=== PATIENT | male | born 1935 | race Caucasian/White ===

== ENCOUNTER → 2016-04-28 | Outpatient (CLI) | payer MEDICARE, OTHER ==
[2016-04-28 09:02] LABS: PROTHROMBIN TIME 31.1 SEC (11.4-15.4)
== END ==
LOC: OD 07:40
PROVIDERS: ATTEND Internal Medicine
DX: Z79.01 Long term (current) use of anticoagulants (principal)
CPT/HCPCS: 36415; 85610

== ENCOUNTER 2016-05-14 11:12 | Inpatient (IN) | payer MEDICARE, OTHER ==
[2016-05-14] MEDS ORDERED: ASPIRIN 81 MG TABLET, CHEWABLE PO ONE (12:11)
[2016-05-14 12:24] LABS: PROTHROMBIN TIME 13.5 SEC (11.4-15.4)
[2016-05-14 12:40] LABS: ABSOLUTE BASOPHILS # (AUTO) 0.1 10^3/uL (0.0-0.2); ABSOLUTE EOSINOPHILS # (AUTO) 0.3 10^3/uL (0.0-0.6); ABSOLUTE LYMPHOCYTES (AUTO) 1.4 10^3/uL (0.5-4.7); ABSOLUTE MONOCYTES (AUTO) 0.6 10^3/uL (0.1-1.4); ABSOLUTE NEUT (AUTO) 6.1 10^3/uL (1.7-8.2); BASOPHILS % (AUTO) 0.9 % (0-2); EOSINOPHILS % (AUTO) 4.1 % (0-6); HEMATOCRIT 38.6 % (37.9-51.0); HGB HCT DIFFERENCE 0.4; LYMPHOCYTES % (AUTO) 16.1 % (13-45); MEAN CORPUSCULAR HEMOGLOBIN 31.5 pg (27.0-33.4); MEAN CORPUSCULAR HGB CONC 33.7 g/dL (32.0-36.0); MEAN CORPUSCULAR VOLUME 94 fl (80-97); MONOCYTES % (AUTO) 6.6 % (3-13); RED BLOOD COUNT 4.12 10^6/uL (4.35-5.55); SEGMENTED NEUTROPHILS % (AUTO) 72.3 % (42-78); WHITE BLOOD COUNT 8.4 10^3/uL (4.0-10.5)
[2016-05-14 12:45] LABS: ALANINE AMINOTRANSFERASE 83 U/L (21-72); ALBUMIN 3.6 g/dL (3.5-5.0); ALKALINE PHOSPHATASE 154 U/L (38-126); ANION GAP 9 (5-19); ASPARTATE AMINO TRANSFERASE 65 U/L (17-59); BILIRUBIN,TOTAL 0.9 mg/dL (0.2-1.3); BLOOD UREA NITROGEN 21 mg/dL (7-20); CALCIUM 9.1 mg/dL (8.4-10.2); CARBON DIOXIDE 28 mmol/L (22-30); CHLORIDE 100 mmol/L (98-107); CREATINE KINASE 30 U/L (55-170); CREATININE RESULT 0.97 mg/dL (0.52-1.25); GLUCOSE 206 mg/dL (75-110); POTASSIUM 5.1 mmol/L (3.6-5.0); SODIUM 136.6 mmol/L (137-145); TOTAL PROTEIN 6.4 g/dL (6.3-8.2)
[2016-05-14 12:59] LABS: CREATINE KINASE MB 0.59 ng/mL (<4.55)
[2016-05-14 13:02] LABS: TROPONIN I < 0.012 ng/mL
--- NOTE | 2016-05-14 13:09 | ER Document Report ---
ED General - General Chief Complaint: Chest Pain > 30 Stated Complaint: CHEST PAIN Mode of Arrival: Ambulatory Information source: Patient Notes: 81 yr old male presents with complaints of chest pain that started prior to arrival. Patient notes that he has a history of coronary artery disease has had 2 stents placed 10 years ago in the [facility] and [facility]. Over at [facility]. Patient notes symptoms worsen with exertion. Patient notes there is shortness of breath associated with the pain radiating to the jaw patient has had recent esophageal EGD TRAVEL OUTSIDE OF THE [place] IN LAST 30 DAYS: No - HPI Onset: Just prior to arrival Onset/Duration: Sudden Quality of pain: Achy Severity: Mild Pain Level: 1 Associated symptoms: Chest pain, Shortness of breath Exacerbated by: Denies Relieved by: Denies Similar symptoms previously: No Recently seen / treated by doctor: No - Related Data Allergies/Adverse Reactions: alfuzosin [Alfuzosin] Allergy (Unknown, Verified 05/14/16 12:10) procaine HCl [From Novocain] Allergy (Unknown, Verified 05/14/16 12:10) Home Medications: Current Home Medications Amiodarone HCl [Cordarone 200 mg Tablet] 200 mg PO DAILY 05/14/16 [History] Melatonin/Pyridoxine HCl (B6) [Melatonin 3 mg Tablet] 1 each PO DAILY 05/14/16 [ History] Sertraline HCl [Zoloft 50 mg Tablet] 50 mg PO DAILY 05/14/16 [History] Silodosin [Rapaflo] 8 mg PO DAILY 05/14/16 [History] Warfarin Sodium [Coumadin 5 mg Tablet] 5 mg PO DAILY 05/14/16 [History] Past Medical History - Social History Smoking Status: Never Smoker Cigarette use (# per day): No Chew tobacco use (# tins/day): No Smoking Education Provided: No Family History: Reviewed & Not Pertinent - Past Medical History Cardiac Medical History: Reports: Hx Atrial Fibrillation, Hx Coronary Artery Disease, Hx Hypercholesterolemia, Hx Hypertension Denies: Hx Heart Murmur Pulmonary Medical History: Denies: Hx Tuberculosis Neurological Medical History: Denies: Hx Seizures Endocrine Medical History: Reports: Hx Diabetes Mellitus Type 2 - Diet and exercise controlled Renal/ Medical History: Reports: Hx Kidney Stones GI Medical History: Reports: Hx Diverticulitis, Hx Gastroesophageal Reflux Disease, Hx Hiatal Hernia Musculoskeltal Medical History: Reports Hx Arthritis - all joints Traumatic Medical History: Reports: Hx Fractures - Arm Past Surgical History: Reports: Hx Appendectomy, Hx Bowel Surgery - peg tube removal, Hx Cardiac Catheterization, Hx Cardiac Surgery - 2 stents, Hx Coronary Stent - x2, Hx Orthopedic Surgery - right knee replacement - Immunizations Hx Diphtheria, Pertussis, Tetanus Vaccination: Yes Hx Pneumococcal Vaccination: 03/30/08 Review of Systems - Review of Systems Notes: REVIEW OF SYSTEMS: CONSTITUTIONAL : Denies fever, chills, or sweats. Denies recent illness. EENT: Admits to pain rating to draw. CARDIOVASCULAR: Admits to chest pain RESPIRATORY: Admits to shortness of breath GASTROINTESTINAL: Denies abdominal pain or distention. Denies nausea, vomiting , or diarrhea. Denies blood in vomitus, stools, or per rectum. Denies black, tarry stools. Denies constipation. GENITOURINARY: Denies difficulty urinating, painful urination, burning, frequency, blood in urine, or discharge. MUSCULOSKELETAL: Denies back or neck pain or stiffness. Denies joint pain or swelling. SKIN: Denies rash, lesions or sores. HEMATOLOGIC : Denies easy bruising or bleeding. LYMPHATIC: Denies swollen, enlarged glands. NEUROLOGICAL: Denies confusion or altered mental status. Denies passing out or loss of consciousness. Denies dizziness or lightheadedness. Denies headache. Denies weakness or paralysis or loss of use of either side. Denies problems with gait or speech. Denies sensory loss, numbness, or tingling. Denies seizures. PSYCHIATRIC: Denies anxiety or stress. Denies depression, suicidal ideation, or homicidal ideation. ALL OTHER SYSTEMS REVIEWED AND NEGATIVE. Dictation was performed using [email or web address] voice recognition software PHYSICAL EXAMINATION: GENERAL: Well-appearing, well-nourished and in no acute distress. HEAD: Atraumatic, normocephalic. EYES: Pupils equal round and reactive to light, extraocular movements intact, sclera anicteric, conjunctiva are normal. ENT: Nares patent, oropharynx clear without exudates. Moist mucous membranes. NECK: Normal range of motion, supple without lymphadenopathy LUNGS: Breath sounds clear to auscultation bilaterally and equal. No wheezes rales or rhonchi. HEART: Regular rate and rhythm without murmurs ABDOMEN: Soft, nontender, nondistended abdomen. No guarding, no rebound. No masses appreciated. Musculoskeletal: Normal range of motion, no pitting or edema. No cyanosis. NEUROLOGICAL: Cranial nerves grossly intact. Normal speech, normal gait. Normal sensory, motor exams PSYCH: Normal mood, normal affect. SKIN: Warm, Dry, normal turgor, no rashes or lesions noted. Physical Exam - Vital signs Vitals: Temp Resp Pulse Ox 98.0 F 18 96 05/14/16 11:33 05/14/16 11:33 05/14/16 11:33 Course - Re-evaluation Re-evalutation: 05/14/16 13:09 Dr Douglas bowles 05/14/16 14:11 Overall is an extremely well-appearing male however given his history of cardiac disease I believe it is appropriate for an ACS rule out. Patient had a second episode of chest pain while in the emergency department which resolved on its own, another repeat EKG was performed no acute changes were noted - Vital Signs Vital signs: Temp Pulse Resp BP Pulse Ox 98.0 F 20 116/66 94 05/14/16 11:33 05/14/16 13:01 05/14/16 13:01 05/14/16 13:01 - Laboratory Result Diagrams: 05/14/16 11:40 05/14/16 11:40 Laboratory results interpreted by me: 05/14/16 05/14/16 11:40 11:40 RBC 4.12 L Hgb 13.0 L RDW 15.0 H Sodium 136.6 L Potassium 5.1 H BUN 21 H Glucose 206 H AST 65 H ALT 83 H Alkaline Phosphatase 154 H Creatine Kinase 30 L - Diagnostic Test Radiology reviewed: Image reviewed, Reports reviewed - EKG Interpretation by [place] EKG shows normal: Sinus rhythm, [place], Intervals, QRS Complexes When compared to previous EKG there are: No significant change Discharge - Discharge Clinical Impression: Chest pain on exertion CAD (coronary artery disease) Qualifiers: Coronary Disease-Associated Artery/Lesion type: nikolski artery [place] vs. transplanted heart: nikolski heart Associated angina: with unstable angina Qualified Code(s): I25.110 - Atherosclerotic heart disease of nikolski coronary artery with unstable angina pectoris Diabetes Qualifiers: Diabetes mellitus type: type 2 Condition: Stable Disposition: ADMITTED INPATIENT Admitting Provider: [facility] Admitted: [facility]
[2016-05-14] MEDS ORDERED: CHOLECALCIFEROL PO SCH (14:45)
[2016-05-14] MEDS ORDERED: ENOXAPARIN SODIUM INJ 100 MG/1 ML DISP.SYRIN SUBCUT SCH (15:00)
[2016-05-14 17:31] LABS: FREE T3 4.15 pg/mL (2.77-5.27)
[2016-05-14 17:44] LABS: THYROID STIMULATING HORMONE 1.69 uIU/mL (0.47-4.68)
[2016-05-14] MEDS ORDERED: LANSOPRAZOLE PO SCH (18:00)
[2016-05-14] MEDS ORDERED: (PENDING PHARMACY ID) (Verapamil Hcl [Verapamil Er] 120 MG) PO SCH (18:00)
[2016-05-14 18:15] LABS: CREATINE KINASE MB 0.42 ng/mL (<4.55)
[2016-05-14 18:18] LABS: TROPONIN I < 0.012 ng/mL
[2016-05-14] MEDS: LANSOPRAZOLE 30 MG TAB.RAP.DR PO SCH (18:30)
[2016-05-14] MEDS: ENOXAPARIN SODIUM INJ 100 MG/1 ML DISP.SYRIN SUBCUT SCH (18:30)
[2016-05-14] MEDS: DOCUSATE SODIUM 100 MG CAPSULE PO SCH (18:36)
--- NOTE | 2016-05-14 21:43 | EKG REPORT ---
SEVERITY:- ABNORMAL ECG - SINUS RHYTHM FIRST DEGREE AV BLOCK RIGHT BUNDLE BRANCH BLOCK : Confirmed by: Vince Howell 14-May-2016 21:42:52
--- NOTE | 2016-05-14 21:45 | EKG REPORT ---
SEVERITY:- ABNORMAL ECG - SINUS RHYTHM FIRST DEGREE AV BLOCK PROBABLE LEFT ATRIAL ABNORMALITY RIGHT BUNDLE BRANCH BLOCK : Confirmed by: Vince Howell 14-May-2016 21:42:59
[2016-05-14] MEDS: VERAPAMIL HCL 120 MG TABLET.SA PO SCH (22:07)
[2016-05-14] MEDS: ATORVASTATIN CALCIUM 20 MG TABLET PO SCH (22:07)
[2016-05-15 00:17] LABS: CREATINE KINASE MB 0.49 ng/mL (<4.55)
[2016-05-15 00:21] LABS: TROPONIN I < 0.012 ng/mL
[2016-05-15 03:54] LABS: APPEARANCE,URINE CLEAR; BILIRUBIN,URINE NEGATIVE (NEGATIVE); GLUCOSE, URINE NEGATIVE (NEGATIVE); KETONES,URINE NEGATIVE (NEGATIVE); LEUKOCYTE ESTERASE,URINE NEGATIVE (NEGATIVE); NITRITE,URINE NEGATIVE (NEGATIVE); PROTEIN,URINE NEGATIVE (NEGATIVE); URINE SPECIFIC GRAVITY 1.018
[2016-05-15] MEDS: ENOXAPARIN SODIUM INJ 100 MG/1 ML DISP.SYRIN SUBCUT SCH ×2 (05:52→18:01)
[2016-05-15 06:20] LABS: ABSOLUTE BASOPHILS # (AUTO) 0.1 10^3/uL (0.0-0.2); ABSOLUTE EOSINOPHILS # (AUTO) 0.5 10^3/uL (0.0-0.6); ABSOLUTE LYMPHOCYTES (AUTO) 1.2 10^3/uL (0.5-4.7); ABSOLUTE MONOCYTES (AUTO) 0.6 10^3/uL (0.1-1.4); ABSOLUTE NEUT (AUTO) 6.5 10^3/uL (1.7-8.2); BASOPHILS % (AUTO) 0.9 % (0-2); EOSINOPHILS % (AUTO) 5.5 % (0-6); HEMATOCRIT 39.4 % (37.9-51.0); HEMOGLOBIN 13.1 g/dL (13.5-17.0); HGB HCT DIFFERENCE -0.1; LYMPHOCYTES % (AUTO) 13.7 % (13-45); MEAN CORPUSCULAR HEMOGLOBIN 31.4 pg (27.0-33.4); MEAN CORPUSCULAR HGB CONC 33.4 g/dL (32.0-36.0); MEAN CORPUSCULAR VOLUME 94 fl (80-97); MONOCYTES % (AUTO) 7.1 % (3-13); RED BLOOD COUNT 4.18 10^6/uL (4.35-5.55); RED CELL DISTRIBUTION WIDTH 14.8 % (11.5-14.0); SEGMENTED NEUTROPHILS % (AUTO) 72.8 % (42-78); WHITE BLOOD COUNT 8.9 10^3/uL (4.0-10.5)
[2016-05-15 06:44] LABS: ANION GAP 6 (5-19); BLOOD UREA NITROGEN 18 mg/dL (7-20); CALCIUM 9.2 mg/dL (8.4-10.2); CARBON DIOXIDE 31 mmol/L (22-30); CHLORIDE 101 mmol/L (98-107); CREATININE RESULT 0.92 mg/dL (0.52-1.25); GLUCOSE 104 mg/dL (75-110); POTASSIUM 5.2 mmol/L (3.6-5.0); SODIUM 138.3 mmol/L (137-145)
[2016-05-15 06:50] LABS: CREATINE KINASE MB 0.52 ng/mL (<4.55)
[2016-05-15 06:55] LABS: TROPONIN I < 0.012 ng/mL
[2016-05-15] MEDS: VERAPAMIL HCL 120 MG TABLET.SA PO SCH ×2 (09:37→21:21)
[2016-05-15] MEDS: OMEGA-3 ACID ETHYL ESTERS 1 GM CAPSULE PO SCH (09:41)
[2016-05-15] MEDS: SERTRALINE HCL 50 MG TABLET PO SCH (09:41)
[2016-05-15] MEDS: MULTIVITAMIN TABLET PO SCH (09:42)
[2016-05-15] MEDS: DOCUSATE SODIUM 100 MG CAPSULE PO SCH ×2 (09:42→18:02)
[2016-05-15] MEDS: LANSOPRAZOLE 30 MG TAB.RAP.DR PO SCH ×2 (09:42→18:02)
[2016-05-15] MEDS: ASPIRIN 81 MG TABLET, ENT COATED PO SCH (09:42)
[2016-05-15] MEDS: ALLOPURINOL 300 MG TABLET PO SCH (09:42)
[2016-05-15] MEDS ORDERED: AMIODARONE HCL 200 MG TABLET PO SCH (10:00)
[2016-05-15] MEDS ORDERED: (PENDING PHARMACY ID) (Multivits-Min/Iron/Fa/Lutein [Centrum Silver Women Tablet] 1 EACH) PO SCH (10:00)
[2016-05-15] MEDS ORDERED: ASPIRIN 81 MG TABLET, ENT COATED PO SCH (10:00)
[2016-05-15] MEDS ORDERED: WARFARIN SODIUM 5 MG TABLET PO SCH ×2 (10:00→22:00)
[2016-05-15] MEDS ORDERED: (PENDING PHARMACY ID) (Warfarin Sodium 5 MG) PO SCH (10:00)
[2016-05-15] MEDS ORDERED: (PENDING PHARMACY ID) (Melatonin/Pyridoxine Hcl (B6) [Melatonin 3 Mg Tablet] 1 EACH) PO SCH (10:00)
[2016-05-15] MEDS ORDERED: (PENDING PHARMACY ID) (Silodosin [Rapaflo] 8 MG) PO SCH (10:00)
[2016-05-15] MEDS ORDERED: (PENDING PHARMACY ID) (Fish Oil/Dha/Epa [Fish Oil 1,200 Mg Fish Oil] 1 EACH) PO SCH (10:00)
--- NOTE | 2016-05-15 12:52 | EKG REPORT ---
SEVERITY:- ABNORMAL ECG - SINUS RHYTHM RIGHT BUNDLE BRANCH BLOCK : Confirmed by: Vince Howell 15-May-2016 12:52:13
--- NOTE | 2016-05-15 14:02 | PDOC TRANSFER SUMMARY ---
General Admission Date/PCP: 05/14/16 14:31 JUANY JACOBSMARY, Resuscitation Status: Full Code - Transfer Diagnosis (1) Acute coronary syndrome Is this a current diagnosis for this admission?: Yes (2) CAD (coronary artery disease) Is this a current diagnosis for this admission?: Yes (3) Diabetes Is this a current diagnosis for this admission?: Yes (4) Paroxysmal atrial fibrillation Is this a current diagnosis for this admission?: Yes - Transfer Medications Home Medications: Allopurinol [Zyloprim 300 mg Tablet] 300 mg PO QPM 05/15/16 Aspirin [Aspirin 81 mg Chewable Tablet] 81 mg PO DAILY 05/15/16 Atorvastatin Calcium [Lipitor 20 mg Tablet] 20 mg PO QPM 05/15/16 Docusate Sodium [Colace 100 mg Capsule] 100 mg PO DAILY 05/15/16 Docusate Sodium [Colace 100 mg Capsule] 200 mg PO QPM 05/15/16 Enoxaparin Sodium [Lovenox Inj 80 mg/0.8 ml Disp.syrin] 80 mg SUBCUT Q12 Ergocalciferol (Vitamin D2) [Drisdol 50,000 unit (1.25MG) Capsule] 50,000 unit PO [id number]@1000 05/15/16 Lansoprazole [Prevacid 30 mg Odt Tablet] 30 mg PO BIDBS 05/15/16 Melatonin 3 mg PO QHS 05/15/16 Multivitamin [Tab-A-Arthur] 1 each PO DAILY 05/15/16 Nitroglycerin [Nitrostat 0.4 mg (1/150 Gr) Tabs 25/Bottle] 1 tab SL Q5MP PRN [place]-3 Fatty Acids/Fish Oil [Fish Oil 1,000 mg Capsule] 1 each PO DAILY Sertraline HCl [Zoloft 50 mg Tablet] 50 mg PO QPM 05/15/16 Silodosin [Rapaflo] 8 mg PO QPM 05/15/16 Verapamil HCl [Verapamil ER] 120 mg PO BID 05/15/16 Transfer Medications: Current Medications Allopurinol (Zyloprim 300 Mg Tablet) 300 mg PO DAILY MELBA Stop: 06/14/16 09:59 Last Admin: 05/15/16 09:42 Dose: 300 mg Aspirin (Ecotrin 81 Mg Ec Tablet) 81 mg PO DAILY MELBA Stop: 06/14/16 09:59 Last Admin: 05/15/16 09:42 Dose: 81 mg Atorvastatin Calcium (Lipitor 20 Mg Tablet) 20 mg PO QHS MELBA Stop: 06/13/16 21:59 Last Admin: 05/14/16 22:07 Dose: 20 mg Docusate Sodium (Colace 100 Mg Capsule) 100 mg PO QAM MELBA Stop: 06/14/16 07:59 Last Admin: 05/15/16 09:42 Dose: Not Given Docusate Sodium (Colace 100 Mg Capsule) 200 mg PO QPM MELBA Stop: 06/13/16 17:59 Last Admin: 05/14/16 18:36 Dose: Not Given Enoxaparin Sodium (Lovenox Inj 100 Mg/1 Ml Disp.Syrin) 85 mg SUBCUT Q12A MELBA Stop: 06/13/16 14:59 Last Admin: 05/15/16 05:52 Dose: 85 mg Lansoprazole (Prevacid 30 Mg Odt Tablet) 30 mg PO BID MELBA Stop: 06/13/16 17:59 Last Admin: 05/15/16 09:42 Dose: 30 mg Multivitamins (Tab-A-Arthur (Multiple Vitamin) Tablet) 1 tab PO DAILY MELBA Stop: 06/14/16 09:59 Last Admin: 05/15/16 09:42 Dose: 1 tab [id number] Ethyl Esters ([place] 1 Gm Capsule) 1 gm PO DAILY MELBA Stop: 06/14/16 09:59 Last Admin: 05/15/16 09:41 Dose: 1 gm Patient Own Medication (Cholecalciferol (Vitamin D3) [Vitamin D3]) 125 unit PO Q14D MELBA Stop: 06/13/16 14:44 Patient Own Medication (Melatonin/Pyridoxine Hcl (B6) [Melatonin 3 Mg Tablet]) 1 each PO DAILY MELBA Stop: 06/14/16 09:59 Patient Own Medication (Silodosin [Rapaflo]) 8 mg PO DAILY MELBA Stop: 06/14/16 09:59 Sertraline HCl (Zoloft 50 Mg Tablet) 50 mg PO DAILY MELBA Stop: 06/14/16 09:59 Last Admin: 05/15/16 09:41 Dose: 50 mg Sodium Chloride (Saline Flush 2.5 Ml Monoject Prefil Syrin) 2.5 ml IV Q8 MELBA Stop: 06/13/16 21:59 Last Admin: 05/15/16 13:54 Dose: 2.5 ml Verapamil HCl (Calan Sr 120 Mg Tablet.Sa) 120 mg PO Q12 MELBA Stop: 06/13/16 21:59 Last Admin: 05/15/16 09:37 Dose: 120 mg - Allergies Allergies/Adverse Reactions: alfuzosin [Alfuzosin] Allergy (Unknown, Verified 05/14/16 12:10) procaine HCl [From Novocain] Allergy (Unknown, Verified 05/14/16 12:10) - Diet/Activity Discharge Diet: Cardiac Hospital Course Hospital Course: The patient came into the emergency room with exertional chest pain and dyspnea. 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 The patient initial presentation symptoms were consistent with exertional dyspnea and possible acute coronary syndrome. He ruled out for myocardial infarction. His EKG did not show any acute changes. His cardiac enzymes were negative 3. His chest pain has resolved after arriving at the hospital. He is CT of the chest showed heavily calcified arteries. He did quite well over the next 24 hours. He did not have any recurrence of chest pain or shortness of breath. His EKG has not changed. Case was discussed with cardiology and because of his presenting symptoms and long history of coronary disease with paroxysmal atrial fibrillation it has been decided that the patient should undergo a cardiac catheterization for further evaluation. 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 Reynaga at [facility] with except at the patient on transfer. Physical Exam Vital Signs: Temp Pulse Resp BP Pulse Ox 97.6 F 82 12 122/67 100 05/15/16 11:31 05/15/16 11:31 05/15/16 11:31 05/15/16 11:31 05/15/16 11:31 Intake & Output 05/14/16 05/15/16 05/16/16 06:59 06:59 06:59 Intake Total 801 1200 Output Total 950 1500 Balance -149 -300 Weight 83.46 kg General appearance: PRESENT: mild distress Head exam: PRESENT: atraumatic Eye exam: PRESENT: conjunctiva pink Neck exam: ABSENT: carotid bruit, JVD Respiratory exam: PRESENT: clear to auscultation manuel Cardiovascular exam: PRESENT: RRR, +S1, +S2 Pulses: PRESENT: normal carotid pulses, +1 pedal pulses bilateral Vascular exam: PRESENT: normal capillary refill GI/Abdominal exam: PRESENT: normal bowel sounds, soft Extremities exam: PRESENT: full ROM Musculoskeletal exam: PRESENT: full ROM Neurological exam: PRESENT: alert, awake Results Laboratory Results: 05/15/16 05:49 05/15/16 05:49 05/15/16 05/15/16 05/15/16 03:30 05:49 05:49 WBC 8.9 RBC 4.18 L Hgb 13.1 L Hct 39.4 MCV 94 MCH 31.4 MCHC 33.4 RDW 14.8 H Plt Count 207 Seg Neutrophils % 72.8 Lymphocytes % 13.7 Monocytes % 7.1 Eosinophils % 5.5 Basophils % 0.9 Absolute Neutrophils 6.5 Absolute Lymphocytes 1.2 Absolute Monocytes 0.6 Absolute Eosinophils 0.5 Absolute Basophils 0.1 Sodium 138.3 Potassium 5.2 H Chloride 101 Carbon Dioxide 31 H Anion Gap 6 BUN 18 Creatinine 0.92 Est GFR ( Amer) > 60 Est GFR (Non-Af Amer) > 60 Glucose 104 Calcium 9.2 Urine Color YELLOW Urine Appearance CLEAR Urine pH 6.0 Ur Specific [place] 1.018 Urine Protein NEGATIVE Urine Glucose (UA) NEGATIVE Urine Ketones NEGATIVE Urine Blood NEGATIVE Urine Nitrite NEGATIVE Ur Leukocyte Esterase NEGATIVE Urine WBC (Auto) 2 Urine RBC (Auto) 1 05/14/16 05/14/16 05/15/16 17:30 23:45 05:49 CK-MB (CK-2) 0.42 0.49 0.52 Troponin I < 0.012 < 0.012 < 0.012 Impressions: Chest X-Ray 05/14/16 12:26 IMPRESSION: NO ACUTE RADIOGRAPHIC FINDING IN THE CHEST. Chest/Abdomen CTA 05/14/16 14:51 IMPRESSION: No CT angio evidence of acute pulmonary emboli. Heavily calcified mitral annulus and very heavily calcified coronary arteries Plan Discharge Plan: Because of patient's presenting symptoms of unstable angina and heavily calcified arteries on the CT and a long history of coronary disease the patient is being transferred to tertiary care for cardiac catheterization and possible interventions.
--- NOTE | 2016-05-15 14:53 | CONSULTATION REPORT E ---
Consultation Report NAME: ASIM CHI : 1935 AGE: 81Y DATE: 05/15/2016 309 A TO: SUSIE DAVIS M.D. FROM: JUANY MILLER M.D. Requesting Physician CHIEF COMPLAINT: His chest pain is consistent with unstable angina and dyspnea on exertion. HISTORY OF PRESENT ILLNESS: The patient states that yesterday he was feeding his chickens, at which time he started having chest pressure which was severe along with shortness of breath. He climbed the stairs and was able to go at least half way up and had to rest. The chest pressure lasted for about 20 minutes. He now has significant dyspnea on exertion and also chest pressure if he walks only a few yards. His EKG shows right bundle branch block pattern which is unchanged and his cardiac enzymes, especially troponin-I is negative x4. The patient's LFTs were also abnormal and the patient was also complaining of gait imbalance and hence, amiodarone was stopped. He also states that the last couple of days, he has been having some mild wheezing with dry cough which also could be secondary to amiodarone effect on the lung. The patient has a history of paroxysmal atrial fibrillation and was placed on amiodarone, but unfortunately due to abnormal LFTs and the patient's gait imbalance, this had to be stopped. He recently about a week or so ago, had cryotherapy for Parker esophagus and also removal of a polyp. He was off Coumadin but was placed on Lovenox after the procedure when it was deemed safe and is on Lovenox 80 mg subcutaneously every 12 hours and also Coumadin has been restarted on Thursday. His INR is subtherapeutic. There are no TIA or CVA symptoms. There is no PND or orthopnea. There is no leg edema. The patient denies any palpitations. PAST MEDICAL HISTORY: Positive for: 1. History of coronary artery disease. He had a Taxus stent in the proximal LAD and a bare metal stent in the mid-right coronary artery in 2006 for anginal symptoms. Subsequently, he had cardiac catheterization in 2010 for chest pains which showed that the stent sites were patent and there was 40% ostial right coronary artery lesion which was deemed secondary to catheter tip induced spasm. 2. History of paroxysmal atrial fibrillation and is back on Coumadin. At present, he is on Lovenox. 3. He has problems with amiodarone in the form of gait imbalance and also abnormal LFTs. 4. Mild pulmonary hypertension. 5. There is no history of congestive heart failure. There is no history of carotid disease. There is no history of asthma or COPD. There is no history of sleep apnea. He has no history of pulmonary embolism or DVT. 6. There is no history of chronic kidney disease. 7. 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 He also has esophageal polyps which have been periodically removed. The last one was about a week ago. There was a time when the patient was on PEG tube but this was a long time ago. 8. The patient has a history of noninsulin dependent diabetes mellitus type 2. 9. There is no history of thyroid disease. 10. There is no history of TIA or CVA. 11. There is no history of anxiety or depression. PAST SURGICAL HISTORY: Positive for: 1. Cholecystectomy. 2. Appendectomy. 3. Skin cancer removal. 4. Knee replacement. 5. History of cardiac catheterization and stent placement. 6. History of ureteral dilatation in the remote past. ALLERGIES: He is allergic to: 1. ZOSYN. 2. PROCAINE. 3. OXYCODONE. FAMILY HISTORY: Positive for heart attack and stroke. PERSONAL HISTORY: He quit smoking a long time ago. There is no history of EtOH abuse. CODE STATUS: The patient is a FULL CODE. His is his surrogate healthcare decision maker. MEDICATIONS: 1. Cholecalciferol 125 units p.o. every 14 days. 2. Melatonin/pyridoxine 3 mg 1 p.o. daily. 3. Rapaflo 8 mg p.o. daily. 4. Allopurinol 300 mg p.o. daily. 5. Aspirin 81 mg p.o. daily. 6. Atorvastatin 20 mg p.o. nightly. 7. Colace 100 mg p.o. every morning. 8. Docusate sodium 200 mg p.o. every night. 9. Lovenox 85 mg subcutaneously every 12 hours. 10. Prevacid 30 mg p.o. b.i.d. 11. Multivitamin 1 tablet p.o. daily. 12. Fish oil 1 g p.o. daily. 13. Zoloft 50 mg p.o. daily which has controlled his depression well. 14. Verapamil extended release 120 mg p.o. every 12 hours. 15. Warfarin 5 mg p.o. nightly. REVIEW OF SYMPTOMS: CONSTITUTIONAL: Complains of generalized fatigue, but no fever, chills, or rigors. EYES: No history of amblyopia or diplopia. No history of amaurosis fugax. HEAD: No history of head injury or headaches. EARS: The patient denies any tinnitus. There is no vertigo. He does have hearing aids and is hard of hearing still. There is no dizziness. There is no earache. There is no ear discharge. NOSE: There are no frequent colds. There is no hay fever. There are no nosebleeds. MOUTH: There is no bleeding from the gums. There is no altered taste sensation. No ulcers in the mouth. THROAT: No history of odynophagia or dysphagia. No history of recurrent sore throats. NECK: No history of enlarged neck lymph nodes and no goiter. LUNGS: At present, his pulmonary CTA shows no evidence of pulmonary emboli. There is chronic bronchiectasis and scarring in the medial right lung base. No acute infiltration, no pleural effusion, no pneumothorax. There is no pericardial effusion. Very heavily calcified mitral valve annulus and heavily calcified coronary arteries. There is a moderate-sized hiatal hernia 3.2 cm, right upper pole renal cortical cyst 2.5 cm. In the left upper pole, also there is a renal cortical cyst. The patient states that the last 2 days he had mild wheezing, but none today. There is no cough or sputum production. No history of asthma or COPD. There is no history of sleep apnea. No history of pulmonary embolism. There is no hemoptysis. No pleuritic chest pain. CARDIAC: No history of MO, but history of coronary artery disease. History of drug-eluting stent to the LAD and a bare metal stent to the RCA in 2006. In 2010, he had a cardiac catheterization which showed that the stent sites were patent. He was admitted in July 2015 with chest pain and diagnosed with unstable angina. MO was ruled out and the patient had a negative stress test. The patient has a history of paroxysmal atrial fibrillation. He is not tolerating amiodarone which was been stopped due to abnormal liver function tests and abnormal gait. There is no history of palpitations. No PND, orthopnea or leg edema or syncope. He has significant chest pressure on walking just a few yards and also complains of shortness of breath walking just a few yards. GASTROINTESTINAL: Past history of cholecystectomy. There is no history of jaundice. There is no history of decreased appetite. Note that the patient as a history of a GI bleed in March 2014, but this was due to esophageal cancer and Parker esophagus and esophageal polyps. He has had a PEG tube placed in the past and had radiation and chemotherapy and also polypectomy. The esophageal cancer has been cured. He has had several polyps removed from the esophagus. There is no history of diarrhea. There is no melenic stools at present. ENDOCRINE: History of diabetes mellitus type 2 without complications, noninsulin dependent. No history of polydipsia or polyuria. No history of heat or cold intolerance. No history of thyroid disease. RENAL: No history of chronic kidney disease. No symptoms of enlarged prostate. No history of hematuria, pyuria or dysuria. MUSCULOSKELETAL: Denies any arthritis or collagen vascular disease. VASCULAR: No history of carotid disease. No history of calf or buttock claudication. No history of DVT. CENTRAL NERVOUS SYSTEM: No history of TIA or CVA. No history of sleep apnea. No history of seizures, headaches or migraines. He has gait problems due to amiodarone which has been stopped now. PSYCHIATRIC: The patient does have some mild anxiety and depression which is well controlled with his current Zoloft. SKIN: There are no skin rashes. There is no petechiae or ecchymosis. There is no pruritus. There is no jaundice. HEMATOLOGIC: There is no history of bleeding diathesis or clotting disorders. METABOLIC: He has a history of gout present and he has a history of dyslipidemia. PHYSICAL EXAMINATION: GENERAL: On examination, the patient is well built and well nourished in no acute distress at present. VITAL SIGNS: He is afebrile with a temperature of 97.6 degrees Fahrenheit, pulse 83 beats per minute regular, blood pressure 122/67, respirations 12 per minute, O2 saturation 100% on 2L. HEENT: Head is atraumatic and normocephalic. Eyes; pupils are equal, round, regular, reactive to light and accommodation. Extraocular movements are normal. There is no conjunctival pallor. There is no scleral icterus. Ears; tympanic membranes are intact. External auditory canals are clear. Nose; there is no deviated nasal septum. There is no inflammation of the nasal mucous membranes. Mouth; mucous membranes of the mouth are moist. Tongue is moist. There are no ulcers. There is no bleeding from the gums. Throat; there is no redness of the oropharynx. There are no exudates in the throat. SKIN: There is no petechia or ecchymosis. There are no skin lesions or skin rashes. NECK: Supple. There is no JVD. Carotids are equal. There is no bruit. Trachea is central. There is no goiter. LUNGS: Clear to auscultation and percussion. CHEST: There is no chest wall tenderness. HEART: S1 and S2 are heard. There is no S3 gallop. There is no S4 gallop. There is a systolic murmur *------* present. There is no rub. ABDOMEN: Soft, nontender. There is no hepatosplenomegaly. Bowel sounds are well heard. EXTREMITIES: Femorals are well felt. There are no femoral bruits. Leg pulses are well felt. There is no pedal edema. There is no DVT or cellulitis. There is no calf tenderness. CENTRAL NERVOUS SYSTEM: The patient is conscious, awake, alert, oriented x3 with no focal deficits. PSYCHIATRIC: The patient does not appear to be anxious or depressed. His judgment and insight are intact. His affect is normal. PULMONARY FUNCTION TEST: The patient had PFTs in August 2015. There is no obstructive lung defect indicated by FEV1/FVC ratio. There is mild respiratory lung defect. Diffusion capacity is within normal limits. 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 The patient's effort was good and overall cooperative. ELECTROCARDIOGRAM: EKG shows sinus rhythm, first-degree A-V block, probable left atrial abnormality, right bundle branch block pattern. His EKG done yesterday shows the sinus rhythm, first-degree A-V block and right bundle branch block pattern. His EKG done today shows sinus rhythm, right bundle branch block pattern. IMAGING: His chest CT as mentioned earlier shows some medial lung base scarring and chronic bronchiectasis. There is very heavily calcified mitral valve annulus and heavily calcified coronary arteries. There is no pulmonary emboli visualized. The rest of the CTA is negative. The patient's chest x-ray shows lung with no opacities, masses or pneumothorax. No pleural effusion. Mediastinal and hilar structures no masses. Contour is normal. Heart size is normal. Normal vasculature. No other acute findings. LABORATORY: White count 8900, hemoglobin 13.1, hematocrit 39.4, platelet count 207,000. Sodium 138.3, potassium 5.2, chloride 101, CO2 of 31, BUN 18, creatinine 0.92, GFR greater than 60, glucose 104, calcium 9.2. As mentioned earlier, his CPK-MB and troponin-I are negative x4. TSH 1.69, free T4 of 1.62, free T3 is 4.15. His liver function tests are abnormal with a total bilirubin which is normal at 0.9, direct bilirubin of 0, AST elevated at 65, ALT elevated at 83, alkaline phosphatase 154. Total protein 6.4, albumin 3.6, calcium 9.1. ECHOCARDIOGRAM: Note that the patient had an echocardiography in July 2015. There was borderline concentric left ventricular hypertrophy, left ventricular ejection fraction is normal. Wall motion cannot be accurately committed, but no definite regional wall motion abnormalities noted. The right ventricle is mildly dilated. Right ventricular systolic function is normal. The right ventricle appears to be hypertropic. The left atrium is moderately dilated. The right atrium is mildly dilated. There was no mitral valve stenosis. There is a mild amount mitral regurgitation. There is a mild amount of aortic regurgitation. There is no aortic valve stenosis. There is trace of physiological amount of tricuspid regurgitation. There is mild pulmonary hypertension by echo. Best estimated left ventricular systolic pressure is elevated at 50 mmHg to 60 mmHg. There is no pericardial effusion. IMPRESSION: 1. Unstable angina. Would recommend continuing the patient on Lovenox and continue verapamil. Note that the patient is also on atorvastatin and aspirin. He has also been started on warfarin sodium. His pro time 13.0, INR 0.95. 2. Dyspnea on exertion question secondary to angina equivalent versus lung problem due to moderate pulmonary hypertension. 3. Coronary artery disease, history of LAD and RCA stents as mentioned earlier with no MO. 4. Hypertension, well controlled. 5. Paroxysmal atrial fibrillation, at present in sinus rhythm. 6. History of esophageal cancer. 7. Parker esophagus. 8. Diabetes mellitus type 2, noninsulin dependent without complications. 9. Moderate pulmonary hypertension with right ventricular systolic pressure of 50 to 60. 10. Mild mitral regurgitation and trace tricuspid regurgitation with right ventricular systolic pressure of 50 mmHg to 60 mmHg. 11. History of gout. 12. Abnormal LFTs. 13. Gait imbalance. 14. Dyslipidemia. RECOMMENDATIONS: 1. Continue the present treatment. In view of the patient's heavily calcified coronary arteries and the patient's symptoms of unstable angina, would recommend transfer to tertiary care center for cardiac catheterization. 2. The case was discussed with the patient and the patient's family in detail. In view of the patient's symptoms, would recommend that the patient be transferred for cardiac catheterization to make sure the stents are patent in view of the patient's unstable angina and dyspnea on exertion. The patient's dyspnea on exertion is most likely secondary to his moderate pulmonary hypertension approaching severe pulmonary hypertension. 3. The case was discussed with Dr. Miller, the attending physician on the patient. TIME SPENT: Note, 45 minutes spent on this patient, more than 50% of the time spent on direct patient care and also reviewing the patient's medications and discussions of the EKG findings and lab findings and CTA findings with the patient and the patient's family. Also, I have spoken to the [facility] cephalometric tracer, Dr. Be Reynaga for at least 10 minutes explaining the patient's clinical scenario. As mentioned earlier, we will stop the patient's amiodarone and repeat the liver function tests later on. DICTATING PHYSICIAN: SUSIE DAVIS M.D. [id number] PHY#: [id number] ID: [id number] JOB#: [id number] ACCT: [id number] cc:SUSIE DAVIS M.D. >
[2016-05-15] MEDS: ATORVASTATIN CALCIUM 20 MG TABLET PO SCH (21:21)
[2016-05-16] MEDS: ENOXAPARIN SODIUM INJ 100 MG/1 ML DISP.SYRIN SUBCUT SCH ×2 (05:20→17:12)
[2016-05-16 07:02] LABS: HEMATOCRIT 38.3 % (37.9-51.0); HEMOGLOBIN 12.8 g/dL (13.5-17.0); HGB HCT DIFFERENCE 0.1; MEAN CORPUSCULAR HEMOGLOBIN 31.4 pg (27.0-33.4); MEAN CORPUSCULAR HGB CONC 33.4 g/dL (32.0-36.0); MEAN CORPUSCULAR VOLUME 94 fl (80-97); RED BLOOD COUNT 4.08 10^6/uL (4.35-5.55); RED CELL DISTRIBUTION WIDTH 14.9 % (11.5-14.0); WHITE BLOOD COUNT 8.1 10^3/uL (4.0-10.5)
[2016-05-16 07:03] LABS: PROTHROMBIN TIME 13.5 SEC (11.4-15.4)
[2016-05-16] MEDS: DOCUSATE SODIUM 100 MG CAPSULE PO SCH ×2 (07:27→17:13)
[2016-05-16 08:18] LABS: APPEARANCE,URINE CLEAR; BILIRUBIN,URINE NEGATIVE (NEGATIVE); GLUCOSE, URINE NEGATIVE (NEGATIVE); KETONES,URINE NEGATIVE (NEGATIVE); LEUKOCYTE ESTERASE,URINE NEGATIVE (NEGATIVE); NITRITE,URINE NEGATIVE (NEGATIVE); PROTEIN,URINE NEGATIVE (NEGATIVE)
--- NOTE | 2016-05-16 08:44 | PDOC PROGRESS REPORT ---
Subjective Progress Note for:: 05/16/16 Subjective:: The patient states to feel the same. He is still awaiting bed for transfer for cardiac catheterization. He did have some chest discomfort with dyspnea after walking the holes at the hospital yesterday which resolved with rest. Physical Exam Vital Signs: Temp Pulse Resp BP Pulse Ox 98.0 F 70 20 140/73 H 100 05/16/16 04:06 05/16/16 06:38 05/16/16 04:06 05/16/16 04:06 05/16/16 04:06 Intake & Output 05/15/16 05/16/16 05/17/16 06:59 06:59 06:59 Intake Total 801 2082 Output Total 950 2000 Balance -149 82 Weight 83.46 kg 81.6 kg General appearance: PRESENT: mild distress Head exam: PRESENT: atraumatic Eye exam: PRESENT: conjunctiva pink Neck exam: ABSENT: carotid bruit, JVD Respiratory exam: PRESENT: clear to auscultation manuel Cardiovascular exam: PRESENT: +S1, +S2 Pulses: PRESENT: +1 pedal pulses bilateral Vascular exam: PRESENT: normal capillary refill GI/Abdominal exam: PRESENT: normal bowel sounds, soft Extremities exam: PRESENT: full ROM Musculoskeletal exam: PRESENT: ambulatory Neurological exam: PRESENT: alert Results Laboratory Results: 05/16/16 06:14 05/15/16 05:49 05/16/16 05/16/16 06:14 07:35 WBC 8.1 RBC 4.08 L Hgb 12.8 L Hct 38.3 MCV 94 MCH 31.4 MCHC 33.4 RDW 14.9 H Plt Count 225 Urine Color YELLOW Urine Appearance CLEAR Urine pH 7.0 Ur Specific [place] 1.010 Urine Protein NEGATIVE Urine Glucose (UA) NEGATIVE Urine Ketones NEGATIVE Urine Blood NEGATIVE Urine Nitrite NEGATIVE Ur Leukocyte Esterase NEGATIVE Urine WBC (Auto) 4 Urine RBC (Auto) 2 05/14/16 05/14/16 05/15/16 17:30 23:45 05:49 CK-MB (CK-2) 0.42 0.49 0.52 Troponin I < 0.012 < 0.012 < 0.012 Impressions: Chest X-Ray 05/14/16 12:26 IMPRESSION: NO ACUTE RADIOGRAPHIC FINDING IN THE CHEST. Chest/Abdomen CTA 05/14/16 14:51 IMPRESSION: No CT angio evidence of acute pulmonary emboli. Heavily calcified mitral annulus and very heavily calcified coronary arteries Assessment & Plan - Diagnosis (1) Acute coronary syndrome Is this a current diagnosis for this admission?: YesPlan: Unstable angina. Awaiting transfer for cardiac catheterization and possible PTCA (2) CAD (coronary artery disease) Qualifiers: Coronary Disease-Associated Artery/Lesion type: craig artery [place] vs. transplanted heart: craig heart Associated angina: with unstable angina Qualified Code(s): I25.110 - Atherosclerotic heart disease of craig coronary artery with unstable angina pectoris Is this a current diagnosis for this admission?: Yes (3) Diabetes Qualifiers: Diabetes mellitus type: type 2 Is this a current diagnosis for this admission?: Yes (4) Paroxysmal atrial fibrillation Is this a current diagnosis for this admission?: Yes
[2016-05-16] MEDS: ALLOPURINOL 300 MG TABLET PO SCH (09:28)
[2016-05-16] MEDS: LANSOPRAZOLE 30 MG TAB.RAP.DR PO SCH ×2 (09:28→17:12)
[2016-05-16] MEDS: OMEGA-3 ACID ETHYL ESTERS 1 GM CAPSULE PO SCH (09:29)
[2016-05-16] MEDS: SERTRALINE HCL 50 MG TABLET PO SCH (09:29)
[2016-05-16] MEDS: VERAPAMIL HCL 120 MG TABLET.SA PO SCH (09:30)
[2016-05-16] MEDS: MULTIVITAMIN TABLET PO SCH (09:30)
[2016-05-16] MEDS: ASPIRIN 81 MG TABLET, ENT COATED PO SCH (09:31)
[2016-05-16 10:38] LABS: ALBUMIN 3.6 g/dL (3.5-5.0); BILIRUBIN,TOTAL 0.9 mg/dL (0.2-1.3); TOTAL PROTEIN 6.2 g/dL (6.3-8.2)
[2016-05-16 12:38] VITALS: BP 129/71
--- NOTE | 2016-05-16 12:41 | EKG REPORT ---
SEVERITY:- ABNORMAL ECG - SINUS RHYTHM RIGHT BUNDLE BRANCH BLOCK : Confirmed by: Vince Howell 16-May-2016 12:40:23
--- NOTE | 2016-05-16 19:33 | PROGRESS NOTE E ---
Progress Note NAME: ASIM CHI : 1935 AGE: 81Y DATE: 05/16/2016 ROOM: 309 SUBJECTIVE: Note that the patient is still waiting for a bed. The patient states that yesterday he walked around the unit and started having chest pressure and shortness of breath. It lasted for about 10 minutes and was relieved with rest. No further chest pain or discomfort. There is no palpitation. There is no PND or orthopnea. There is no wheezing or cough. There is no arrhythmia seen on the monitor. OBJECTIVE: GENERAL: On examination, the patient is well built and well nourished, at present in no acute distress, is sitting up in the chair. VITAL SIGNS: He is afebrile with a temperature of 97.6 degrees Fahrenheit. Pulse is 78 beats per minute. Blood pressure is 129/71. Respirations are 18 per minute. O2 saturations are 99% on 1.5 liters nasal cannula. HEAD: Atraumatic/normocephalic. EYES: Pupils are equal, round, regular, reactive to light and accommodation. Extraocular movements are normal. There is no conjunctival pallor. There is no scleral icterus. EARS, NOSE, AND THROAT: Negative except the patient is hard of hearing. NECK: Supple. There is no JVD. Carotids are equal. There is no bruit. There is no goiter. There is no lymphadenopathy. Trachea is central. LUNGS: Clear to auscultation and percussion. HEART: S1, S2 is heard. There is no S3 gallop. There is no S4 gallop. There is a systolic murmur in the left sternal border and the apex. There is no rub. ABDOMEN: Soft, nontender. There is no hepatosplenomegaly. Bowel sounds are well heard. There are no tender areas or masses. EXTREMITIES: Femorals are well felt. There are no femur bruits. Leg pulses are well felt. There is no pedal edema. There is no DVT or cellulitis. There is no clubbing or cyanosis. There is no calf tenderness. CENTRAL NERVOUS SYSTEM: The patient is conscious, awake, alert, oriented x3 with no focal deficit. PSYCHIATRIC: The patient does not appear to be anxious or depressed. His judgement and insight are intact. His affect is normal. DIAGNOSTIC DATA: The patient's EKG shows sinus rhythm with a right bundle branch block pattern and no acute changes. The patient's white count is 8,100, hemoglobin is 12.8, hematocrit is 38.2, platelet count is 225,000. The patient's ProTime is 13.5, INR is 1.00. The patient's liver function tests show that the AST has come down to 41, the ALT has gone up to 73, alkaline phosphatase is 137, the total protein is 6.2, albumin is 3.6. IMPRESSION: 1. UNSTABLE ANGINA WITH CHEST PRESSURE AND SHORTNESS OF BREATH WITH EXERTION. THE PATIENT IS AWAITING A BED FOR [facility]. 2. DYSPNEA ON EXERTION VERSUS SECONDARY TO *------* VERSUS LUNG INVOLVEMENT DUE TO MODERATE PULMONARY HYPERTENSION. 3. CORONARY ARTERY DISEASE WITH HISTORY OF LAD AND OSTIAL STENTS WITH NO AR. 4. HYPERTENSION, WELL CONTROLLED. 5. PAROXYSMAL ATRIAL FIBRILLATION, AT PRESENT IN SINUS RHYTHM. 6. HISTORY OF ESOPHAGEAL CANCER AND HISTORY OF CHAN'S ESOPHAGUS. 7. DIABETES MELLITUS TYPE 2, NON-INSULIN DEPENDENT, WITHOUT COMPLICATIONS. 8. MODERATE PULMONARY HYPERTENSION WITH RIGHT VENTRICULAR SYSTOLIC PRESSURE OF 50 TO 60. 9. MILD MITRAL REGURGITATION WITH TRACE TRICUSPID REGURGITATION. 10. HISTORY OF GOUT. 11. ABNORMAL LFTS. 12. DYSLIPIDEMIA. RECOMMENDATIONS: Note that the patient is on atorvastatin, will discontinue this. Note that the patient's amiodarone has already been discontinued. Gait and balance much improved after stopping the amiodarone. Continue the patient on Lovenox at full dose for patient's weight. Continue the patient's verapamil. Stop the patient's amiodarone which has been done, will also stop her atorvastatin. Note that the patient is on aspirin 81 mg p.o. daily. Will continue on lansoprazole. Will continue with Zoloft. Note that the patient is awaiting a bed from [facility], most likely will get a bed today. Will sign off the case. Note 30 minutes spent on this patient with more than 50% of the time spent on direct patient care, reviewing the patient's medications and adjusting the patient's medications and discussions with the attending physician taking care of the patient. I will follow the patient as an outpatient. The patient is being transferred for cardiac catheterization. DICTATING PHYSICIAN: SUSIE DAVIS M.D. [id number] PHY#: [id number] ID: [id number] JOB#: [id number] ACCT: [id number] cc:SUSIE DAVIS M.D. >
== END 2016-05-16 19:47 | disposition short-term general hospital (02) | DRG 303 ==
LOC: ER 11:12 → INTOOBSV 14:31 → EH 14:31 → UNDOADMIN 14:46 → EH 14:46 → 3N 18:00 → OBSVTOIN 05-16 10:48
PROVIDERS: ADMIT Internal Medicine; ATTEND Internal Medicine
DX: I25.110 Atherosclerotic heart disease of native coronary artery with unstable angina pectoris (principal); M13.89 Other specified arthritis, multiple sites; Z96.651 Presence of right artificial knee joint; I45.10 Unspecified right bundle-branch block; I48.0 Paroxysmal atrial fibrillation; K44.9 Diaphragmatic hernia without obstruction or gangrene; N28.1 Cyst of kidney, acquired; E11.9 Type 2 diabetes mellitus without complications; F41.9 Anxiety disorder, unspecified; F32.9 Major depressive disorder, single episode, unspecified; J47.9 Bronchiectasis, uncomplicated; I27.2 Other secondary pulmonary hypertension; Z79.02 Long term (current) use of antithrombotics/antiplatelets; Z85.01 Personal history of malignant neoplasm of esophagus; Z88.6 Allergy status to analgesic agent; Z87.891 Personal history of nicotine dependence; Z95.5 Presence of coronary angioplasty implant and graft; Z79.899 Other long term (current) drug therapy; Z79.82 Long term (current) use of aspirin
CPT/HCPCS: 36415; 71010; 71275; 80048; 80053; 80076; 81001; 82550; 82553; 82962; 84439; 84443; 84481; 84484; 85025; 85027; 85610; 85652; 93005; 93010; 99285; G0378; J1650; J3490

== ENCOUNTER → 2016-05-26 | Outpatient (CLI) | payer MEDICARE, OTHER ==
[2016-05-26 08:22] LABS: PROTHROMBIN TIME 18.8 SEC (11.4-15.4)
[2016-05-26 08:27] LABS: ALANINE AMINOTRANSFERASE 51 U/L (21-72); ALKALINE PHOSPHATASE 147 U/L (38-126); ANION GAP 12 (5-19); ASPARTATE AMINO TRANSFERASE 30 U/L (17-59); BILIRUBIN,TOTAL 0.7 mg/dL (0.2-1.3); BLOOD UREA NITROGEN 23 mg/dL (7-20); CALCIUM 9.6 mg/dL (8.4-10.2); CARBON DIOXIDE 25 mmol/L (22-30); CHLORIDE 100 mmol/L (98-107); CHOLESTEROL 166.94 mg/dL (0-200); CREATININE RESULT 0.97 mg/dL (0.52-1.25); Direct HDL 37 mg/dL (>40); GLUCOSE 117 mg/dL (75-110); POTASSIUM 5.5 mmol/L (3.6-5.0); SODIUM 136.6 mmol/L (137-145); TOTAL PROTEIN 6.5 g/dL (6.3-8.2); TRIGLYCERIDES 95 mg/dL (<150)
[2016-05-26 08:38] LABS: DIRECT LDL 108 mg/dL (<100)
== END ==
LOC: OD 07:26
PROVIDERS: ATTEND Internal Medicine
DX: I25.118 Atherosclerotic heart disease of native coronary artery with other forms of angina pectoris (principal); I10 Essential (primary) hypertension; E78.4 Other hyperlipidemia; I48.0 Paroxysmal atrial fibrillation; Z79.01 Long term (current) use of anticoagulants; Z79.899 Other long term (current) drug therapy; I34.0 Nonrheumatic mitral (valve) insufficiency; I35.1 Nonrheumatic aortic (valve) insufficiency; I36.1 Nonrheumatic tricuspid (valve) insufficiency; K21.9 Gastro-esophageal reflux disease without esophagitis; R01.1 Cardiac murmur, unspecified; Z95.5 Presence of coronary angioplasty implant and graft; E11.9 Type 2 diabetes mellitus without complications
CPT/HCPCS: 36415; 80053; 80061; 85610

== ENCOUNTER 2016-06-02 17:39 | Observation (INO) | payer MEDICARE, OTHER ==
[2016-06-02] MEDS ORDERED: NORMAL SALINE 1000 ML 1,000 ML IV ONE (18:27)
--- NOTE | 2016-06-02 18:36 | ER Document Report ---
ED Dizziness/Weakness - General Stated Complaint: PHYSICIAN REFERRED FOR IV FLUIDS Information source: Patient Notes: 81-year-old male sent over by the associate software engineer Dr. Velazquez who spoke to me personally about the patient. Patient in summary is an 81-year-old male with past medical history as recorded including 2 stents who supposedly was evaluated at [facility] around 2 weeks ago and had a cardiac catheterization that showed around 50% stenosis. No intervention was performed. Patient was started on metoprolol and isosorbide mononitrate. Patient went to see his associate software engineer here locally as he is being set up for cardiac rehabilitation. He was supposed to have a stress test performed at the associate software engineer's office. Supposedly when he stood up on the treadmill his blood pressure went to 70/30 systolic without activity. Patient did feel lightheaded. Patient denies any and all chest pain, shortness of breath, leg swelling, calf pain, headache, neck pain, or fevers. The associate software engineer's believe the patient is dehydrated and is asked me to order a cardiac panel, liver panel, thyroid function panel, EKG, troponin, and start the patient on normal saline at 100 mL per hour. He is asked that I do not call the primary care provider and admit the patient directly to his service. TRAVEL OUTSIDE OF THE [place] IN LAST 30 DAYS: No - HPI Patient complains to provider of: Other - See above Onset: Other - See above Onset/Duration: Gradual Quality of pain: No pain Severity: Mild Pain Level: Denies Associated symptoms: Other - See above - Related Data Allergies/Adverse Reactions: alfuzosin [Alfuzosin] Allergy (Unknown, Verified 05/14/16 12:10) procaine HCl [From Novocain] Allergy (Unknown, Verified 05/14/16 12:10) Past Medical History - General Information source: Patient, Relative - Social History Smoking Status: Unknown if Ever Smoked Cigarette use (# per day): No Chew tobacco use (# tins/day): No Smoking Education Provided: No Frequency of alcohol use: None Family History: Reviewed & Not Pertinent - Past Medical History Cardiac Medical History: Reports: Hx Atrial Fibrillation, Hx Coronary Artery Disease, Hx Hypercholesterolemia, Hx Hypertension Denies: Hx Heart Murmur Pulmonary Medical History: Denies: Hx Tuberculosis Neurological Medical History: Denies: Hx Seizures Endocrine Medical History: Reports: Hx Diabetes Mellitus Type 2 - Diet and exercise controlled Renal/ Medical History: Reports: Hx Kidney Stones GI Medical History: Reports: Hx Diverticulitis, Hx Gastroesophageal Reflux Disease, Hx Hiatal Hernia Musculoskeltal Medical History: Reports Hx Arthritis - all joints Psychiatric Medical History: Denies: Hx Depression Traumatic Medical History: Reports: Hx Fractures - Arm Past Surgical History: Reports: Hx Appendectomy, Hx Bowel Surgery - peg tube removal, Hx Cardiac Catheterization, Hx Cardiac Surgery - 2 stents, Hx Coronary Stent - x2, Hx Orthopedic Surgery - right knee replacement - Immunizations Hx Diphtheria, Pertussis, Tetanus Vaccination: Yes Hx Pneumococcal Vaccination: 12/28/16 Review of Systems - Review of Systems Constitutional: denies: Fever EENT: denies: Eye discharge, Nose discharge Cardiovascular: denies: Chest pain, Palpitations, Heart racing Respiratory: denies: Cough, Short of breath Gastrointestinal: denies: Vomiting Genitourinary: denies: Dysuria Musculoskeletal: denies: Leg swelling Skin: Other - no hives. denies: Rash Neurological/Psychological: Other - no slurred speech -: Yes All other systems reviewed and negative Physical Exam - Vital signs Vitals: Resp Pulse Ox 19 92 06/02/16 18:39 06/02/16 18:39 Notes: Reviewed vital signs and nursing note as charted by RN. CONSTITUTIONAL: Alert and oriented and responds appropriately to questions. Well -appearing; well-nourished HEAD: Normocephalic; atraumatic EYES: PERRL NECK: Supple without meningismus; no carotid bruits; non-tender; no cervical lymphadenopathy, no masses CARD: Regular rate and rhythm; no murmurs, no clicks, no rubs, no gallops; symmetric distal pulses RESP: Normal chest excursion without splinting or tachypnea; breath sounds clear and equal bilaterally; no wheezes, no rhonchi, no rales ABD/GI: Normal bowel sounds; non-distended; soft, non-tender BACK: The back appears normal and is non-tender to palpation, there is no CVA tenderness EXT: Normal ROM in all joints; non-tender to palpation; no cyanosis, no effusions, no edema SKIN: Normal color for age and race; warm; dry; good turgor; capillary refill < 2 seconds; no acute lesions noted NEURO: CN II through XII are intact and 5 out of 5 bilateral upper and lower extremity strength with sensation intact to light touch. PSYCH: The patient's mood and manner are appropriate. Grooming and personal hygiene are appropriate. Course - Re-evaluation Re-evalutation: EKG shows a heart of 78, normal sinus rhythm, minimal left axis deviation, right bundle branch block. 06/02/16 18:37 Given the history and physical examination the laboratory orders as requested by the associate software engineer have been placed. Patient denies any and all chest pain. Blood pressure currently here is 114/67. I'm concerned that possibly the patient has had an episode of low blood pressure secondary to the recently started metoprolol and isosorbide mononitrate. I have relayed this to the associate software engineer. 06/02/16 19:49 Chemistry as recorded. Potassium is slightly elevated. Fairly normal creatinine. Fluid is infusing. No peak T waves. No widening of the QRS. Chest x-ray shows mildly enlarged heart, normal mediastinum, no fractures, normal lung macdonald, no pneumothorax. - Vital Signs Vital signs: Temp Pulse Resp BP Pulse Ox 18 129/70 H 92 06/02/16 19:12 06/02/16 18:59 06/02/16 19:12 - Laboratory Result Diagrams: 06/02/16 18:58 06/02/16 18:58 Laboratory results interpreted by me: 06/02/16 06/02/16 06/02/16 18:58 18:58 18:58 RBC 3.96 L Hgb 12.7 L Hct 37.2 L RDW 15.1 H PT 25.0 H APTT 44.3 H Potassium 5.7 H BUN 29 H Glucose 161 H Alkaline Phosphatase 160 H Discharge - Discharge Clinical Impression: Low blood pressure Qualifiers: Hypotension type: postprocedural hypotension Qualified Code(s): I95.81 - Postprocedural hypotension Condition: Fair Disposition: ADMITTED OBSERVATION Admitting Provider: Caroline Unit Admitted: Telemetry
[2016-06-02 19:18] LABS: ABSOLUTE BASOPHILS # (AUTO) 0.1 10^3/uL (0.0-0.2); ABSOLUTE EOSINOPHILS # (AUTO) 0.3 10^3/uL (0.0-0.6); ABSOLUTE LYMPHOCYTES (AUTO) 1.6 10^3/uL (0.5-4.7); ABSOLUTE MONOCYTES (AUTO) 0.6 10^3/uL (0.1-1.4); ABSOLUTE NEUT (AUTO) 6.4 10^3/uL (1.7-8.2); BASOPHILS % (AUTO) 1.3 % (0-2); EOSINOPHILS % (AUTO) 3.6 % (0-6); HEMATOCRIT 37.2 % (37.9-51.0); HEMOGLOBIN 12.7 g/dL (13.5-17.0); HGB HCT DIFFERENCE 0.9; LYMPHOCYTES % (AUTO) 17.5 % (13-45); MEAN CORPUSCULAR HGB CONC 34.1 g/dL (32.0-36.0); MEAN CORPUSCULAR VOLUME 94 fl (80-97); MONOCYTES % (AUTO) 6.7 % (3-13); RED BLOOD COUNT 3.96 10^6/uL (4.35-5.55); RED CELL DISTRIBUTION WIDTH 15.1 % (11.5-14.0); SEGMENTED NEUTROPHILS % (AUTO) 70.9 % (42-78)
[2016-06-02 19:19] LABS: PARTIAL THROMBOPLASTIN TIME 44.3 SEC (23.5-35.8)
[2016-06-02 19:38] LABS: ALANINE AMINOTRANSFERASE 41 U/L (21-72); ALBUMIN 3.9 g/dL (3.5-5.0); ALKALINE PHOSPHATASE 160 U/L (38-126); ANION GAP 10 (5-19); ASPARTATE AMINO TRANSFERASE 32 U/L (17-59); BILIRUBIN,TOTAL 0.7 mg/dL (0.2-1.3); BLOOD UREA NITROGEN 29 mg/dL (7-20); CALCIUM 9.4 mg/dL (8.4-10.2); CARBON DIOXIDE 27 mmol/L (22-30); CHLORIDE 100 mmol/L (98-107); CREATININE RESULT 1.12 mg/dL (0.52-1.25); GLUCOSE 161 mg/dL (75-110); POTASSIUM 5.7 mmol/L (3.6-5.0); SODIUM 137.1 mmol/L (137-145); TOTAL PROTEIN 6.4 g/dL (6.3-8.2)
--- NOTE | 2016-06-02 20:50 | EKG REPORT ---
SEVERITY:- ABNORMAL ECG - SINUS RHYTHM RIGHT BUNDLE BRANCH BLOCK : Confirmed by: Vince Howell 02-Jun-2016 20:49:42
[2016-06-02] MEDS ORDERED: WARFARIN SODIUM 5 MG TABLET PO ONE (22:00)
[2016-06-03 07:13] LABS: PROTHROMBIN TIME 24.4 SEC (11.4-15.4)
[2016-06-03 07:27] LABS: ANION GAP 11 (5-19); BLOOD UREA NITROGEN 22 mg/dL (7-20); CARBON DIOXIDE 26 mmol/L (22-30); CHLORIDE 103 mmol/L (98-107); CREATININE RESULT 0.82 mg/dL (0.52-1.25); GLUCOSE 102 mg/dL (75-110); POTASSIUM 5.2 mmol/L (3.6-5.0); SODIUM 139.6 mmol/L (137-145)
[2016-06-03] MEDS ORDERED: POLYETHYLENE GLYCOL 3350 POWDER 17 GM/1 PACKET PO PRN (09:06)
[2016-06-03] MEDS ORDERED: SODIUM POLYSTYRENE SULFONATE 15 GM/60 ML PO ONE (09:12)
[2016-06-03] MEDS ORDERED: ACETAMINOPHEN 325 MG TABLET PO PRN (09:15)
[2016-06-03] MEDS ORDERED: ONDANSETRON HCL INJ/PF 4 MG/2 ML SDV IV PRN (09:15)
[2016-06-03] MEDS ORDERED: NORMAL SALINE 1000 ML 1,000 ML IV PRN (09:15)
--- NOTE | 2016-06-03 09:29 | PDOC H&P ---
History of Present Illness Admission Date/PCP: 06/02/16 19:48 JUANY MILLER, Patient complains of: Hypotension History of Present Illness: ASIM CHI is a 81 year old male, with coronary artery disease, seen in [facility] where he underwent cardiac catheterization. Patient had prior stent placed and reportedly the stents were doing well. She has some blockage of about 50% to 60% on an artery and being treated medically. He did not have any chest pain since then. His cholesterol medication and amiodarone was discontinued. He was placed on Imdur and metoprolol. Since then the patient feels generally fatigued. Patient was scheduled to have a stress test with his grocery sacker where he was noted to be hypotensive and was sent to the emergency room for intravenous fluid and observation. Patient denies any chest pain at all, nor any shortness of breath or diaphoresis. He felt nauseated however when he was lightheaded yesterday. Past Medical History Cardiac Medical History: Reports: Atrial Fibrillation, Coronary Artery Disease, Hyperlipidema, Hypertension Denies: Heart Murmur Pulmonary Medical History: Denies: Tuberculosis Neurological Medical History: Denies: Seizures Endocrine Medical History: Reports: Diabetes Mellitus Type 2 - Diet and exercise controlled Renal/ Medical History: GI Medical History: Reports: Diverticulitis, Gastroesophageal Reflux Disease, Hiatal Hernia Musculoskeltal Medical History: Reports: Arthritis - all joints Psychiatric Medical History: Denies: Depression Hematology: Reports: Anemia Past Surgical History Past Surgical History: Reports: Appendectomy, Cardiac Catheterization, Coronary Stent - x2, Orthopedic Surgery - right knee replacement Social History Information Source: Patient Smoking Status: Unknown if Ever Smoked Frequency of Alcohol Use: None Hx Recreational Drug Use: No Drugs: None Hx Prescription Drug Abuse: No - Advance Directive Resuscitation Status: Full Code Family History Family History: CAD, Hyperlipidemia, Hypertension Parental Family History Reviewed: Yes Children Family History Reviewed: Yes Sibling(s) Family History Reviewed.: Yes Medication/Allergy Home Medications: Allopurinol [Zyloprim 300 mg Tablet] 300 mg PO QPM 05/15/16 Docusate Sodium [Colace 100 mg Capsule] 100 mg PO TID 05/15/16 Ergocalciferol (Vitamin D2) [Drisdol 50,000 unit (1.25MG) Capsule] 50,000 unit PO B1FIYPX@1000 05/15/16 Lansoprazole [Prevacid 30 mg Odt Tablet] 30 mg PO BIDBS 05/15/16 Melatonin 3 mg PO QHS 05/15/16 Multivitamin [Tab-A-Arthur] 1 each PO DAILY 05/15/16 Nitroglycerin [Nitrostat 0.4 mg (1/150 Gr) Tabs 25/Bottle] 1 tab SL Q5MP PRN Sertraline HCl [Zoloft 50 mg Tablet] 50 mg PO QPM 05/15/16 Silodosin [Rapaflo] 8 mg PO QPM 05/15/16 Verapamil HCl [Verapamil ER] 120 mg PO Q12 05/15/16 Aspirin [Aspirin EC] 81 mg PO DAILY 06/02/16 Fish Oil/Dha/Epa [Fish Oil 1,200 mg Fish Oil] 1,200 mg PO DAILY 06/02/16 Isosorbide Mononitrate [Imdur 60 mg Tablet.er] 60 mg PO DAILY 06/02/16 Metoprolol Tartrate [Lopressor 25 mg Tablet] 25 mg PO Q12 06/02/16 Polyethylene Glycol 3350 [Miralax Powder 17 gm/Packet] 17 gm PO HSP PRN Warfarin Sodium [Coumadin 2.5 mg Tablet] 2.5 mg PO AVILEZ@1000 06/02/16 Warfarin Sodium [Coumadin 5 mg Tablet] 5 mg PO MOTUWETHFRSA 06/02/16 Allergies/Adverse Reactions: alfuzosin [Alfuzosin] Allergy (Unknown, Verified 05/14/16 12:10) procaine HCl [From Novocain] Allergy (Unknown, Verified 05/14/16 12:10) Review of Systems Constitutional: PRESENT: weakness - Generalized. ABSENT: chills, fever(s), headache(s), weight gain, weight loss Eyes: ABSENT: visual disturbances Ears: ABSENT: hearing changes Nose, Mouth, and Throat: ABSENT: mouth pain, sore throat Cardiovascular: ABSENT: chest pain, dyspnea on exertion, edema, orthropnea, palpitations Respiratory: ABSENT: cough, hemoptysis Gastrointestinal: PRESENT: constipation. ABSENT: abdominal pain, diarrhea, hematemesis, hematochezia, melena, nausea, vomiting Genitourinary: ABSENT: dysuria, hematuria Musculoskeletal: ABSENT: joint swelling Integumentary: ABSENT: rash, wounds Neurological: PRESENT: dizziness. ABSENT: abnormal gait, abnormal speech, confusion, focal weakness, frequent falls, syncope Psychiatric: ABSENT: anxiety, depression, homidical ideation, suicidal ideation Endocrine: ABSENT: cold intolerance, heat intolerance, polydipsia, polyuria Hematologic/Lymphatic: PRESENT: easy bruising - Warfarin. ABSENT: easy bleeding Physical Exam Vital Signs: Temp Pulse Resp BP Pulse Ox 98.3 F 69 14 129/61 H 95 06/03/16 07:01 06/02/16 23:15 06/03/16 07:01 06/03/16 07:01 06/03/16 07:01 Intake & Output 06/02/16 06/03/16 06/04/16 06:59 06:59 06:59 Output Total 700 Balance -700 Weight 83 kg General appearance: PRESENT: no acute distress, cooperative, well-developed, well-nourished Head exam: PRESENT: atraumatic, normocephalic Eye exam: PRESENT: conjunctiva pink, EOMI, PERRLA - Sluggish bilateral. ABSENT : scleral icterus Ear exam: PRESENT: normal external ear exam Mouth exam: PRESENT: moist, neck supple, tongue midline Throat exam: ABSENT: post pharyngeal erythema, tonsillar erythema, tonsillar exudate Neck exam: ABSENT: carotid bruit, JVD, lymphadenopathy, thyromegaly Respiratory exam: PRESENT: clear to auscultation manuel. ABSENT: rales, rhonchi, wheezes Cardiovascular exam: PRESENT: RRR, systolic murmur - The aortic area. ABSENT: diastolic murmur, gallop, rubs Pulses: PRESENT: normal dorsalis pedis pul Vascular exam: PRESENT: normal capillary refill GI/Abdominal exam: PRESENT: normal bowel sounds, soft. ABSENT: distended, guarding, mass, organolmegaly, rebound, tenderness Rectal exam: PRESENT: deferred Extremities exam: PRESENT: full ROM. ABSENT: calf tenderness, clubbing, pedal edema Neurological exam: PRESENT: alert, awake, oriented to person, oriented to place , oriented to time, oriented to situation Psychiatric exam: PRESENT: appropriate affect, normal mood. ABSENT: homicidal ideation, suicidal ideation Skin exam: PRESENT: dry, intact, warm. ABSENT: cyanosis, rash Results Laboratory Results: 06/03/16 06:32 06/03/16 06:32 Sodium 139.6 Potassium 5.2 H Chloride 103 Carbon Dioxide 26 Anion Gap 11 BUN 22 H Creatinine 0.82 Est GFR ( Amer) > 60 Est GFR (Non-Af Amer) > 60 Glucose 102 Calcium 9.0 Impressions: Chest X-Ray 06/02/16 17:49 IMPRESSION: No acute finding. Assessment & Plan - Diagnosis (1) Low blood pressure Qualifiers: Hypotension type: postprocedural hypotension Qualified Code(s): I95.81 - Postprocedural hypotension Is this a current diagnosis for this admission?: Yes (2) Hyperkalemia Is this a current diagnosis for this admission?: Yes (3) CAD (coronary artery disease) Qualifiers: Coronary Disease-Associated Artery/Lesion type: [place] artery [place] vs. transplanted heart: [place] heart Associated angina: without angina Qualified Code(s): I25.10 - Atherosclerotic heart disease of [place] coronary artery without angina pectoris Is this a current diagnosis for this admission?: Yes (4) Diabetes Qualifiers: Diabetes mellitus type: type 2 Diabetes mellitus complication status: with unspecified complications Diabetes mellitus fpc insulin use: without fpc use Qualified Code(s): E11.8 - Type 2 diabetes mellitus with unspecified complications Is this a current diagnosis for this admission?: Yes (5) Dyslipidemia Is this a current diagnosis for this admission?: Yes (6) Afib Qualifiers: Atrial fibrillation type: chronic Qualified Code(s): I48.2 - Chronic atrial fibrillation Is this a current diagnosis for this admission?: Yes (7) GERD (gastroesophageal reflux disease) Qualifiers: Esophagitis presence: without esophagitis Qualified Code(s): K21.9 - Gastro-esophageal reflux disease without esophagitis Is this a current diagnosis for this admission?: Yes - Time Time Spent: 30 to 50 Minutes - Plan Summary Plan Summary: Patient will be admitted to observation. We will hydrate the patient with normal saline. I am going to give Kayexalate and recheck electrolytes in the morning. We will consult cardiology for further evaluation and management. I will hold the patient's nitroglycerin at this time but continue the metoprolol. Continued the verapamil as well. Physical therapy. Check orthostatics. Resume Coumadin and recheck PT/INR in the morning.
[2016-06-03] MEDS ORDERED: METOPROLOL TARTRATE 25 MG TABLET PO SCH ×2 (10:00→22:00)
[2016-06-03] MEDS ORDERED: (PENDING PHARMACY ID) (Verapamil Hcl [Verapamil Er] 120 MG) PO SCH (10:00)
[2016-06-03] MEDS ORDERED: DOCUSATE SODIUM 100 MG CAPSULE PO SCH (10:00)
[2016-06-03] MEDS ORDERED: ASPIRIN 81 MG TABLET, ENT COATED PO SCH (10:00)
[2016-06-03 10:01] LABS: HEMATOCRIT 36.4 % (37.9-51.0); HEMOGLOBIN 12.2 g/dL (13.5-17.0); HGB HCT DIFFERENCE 0.2; MEAN CORPUSCULAR HEMOGLOBIN 31.3 pg (27.0-33.4); MEAN CORPUSCULAR HGB CONC 33.5 g/dL (32.0-36.0); MEAN CORPUSCULAR VOLUME 93 fl (80-97); RED CELL DISTRIBUTION WIDTH 15.3 % (11.5-14.0); WHITE BLOOD COUNT 8.8 10^3/uL (4.0-10.5)
[2016-06-03] MEDS ORDERED: METOPROLOL TARTRATE 25 MG TABLET PO ONE (11:00)
[2016-06-03] MEDS ORDERED: LANSOPRAZOLE 30 MG TAB.RAP.DR PO SCH (17:00)
--- NOTE | 2016-06-03 17:01 | PDOC DISCHARGE SUMMARY ---
General - Admit/Disc Date/PCP Admission Date/Primary Care Provider: 06/02/16 19:48 JUANY MILLER, Discharge Date: 06/03/16 - Discharge Diagnosis (1) Low blood pressure Is this a current diagnosis for this admission?: Yes (2) Hyperkalemia Is this a current diagnosis for this admission?: Yes (3) CAD (coronary artery disease) Is this a current diagnosis for this admission?: Yes (4) Diabetes Is this a current diagnosis for this admission?: Yes (5) Dyslipidemia Is this a current diagnosis for this admission?: Yes (6) Afib Is this a current diagnosis for this admission?: Yes (7) GERD (gastroesophageal reflux disease) Is this a current diagnosis for this admission?: Yes - Additional Information Resuscitation Status: Full Code Discharge Diet: Cardiac, Diabetic - no concentrated sweets Discharge Activity: Activity As Tolerated, Balance Activity w/Rest Home Medications: Allopurinol [Zyloprim 300 mg Tablet] 300 mg PO QPM 05/15/16 Docusate Sodium [Colace 100 mg Capsule] 100 mg PO TID 05/15/16 Ergocalciferol (Vitamin D2) [Drisdol 50,000 unit (1.25MG) Capsule] 50,000 unit PO [id number]@1000 05/15/16 Lansoprazole [Prevacid 30 mg Odt Tablet] 30 mg PO BIDBS 05/15/16 Melatonin 3 mg PO QHS 05/15/16 Multivitamin [Tab-A-Arthur] 1 each PO DAILY 05/15/16 Nitroglycerin [Nitrostat 0.4 mg (1/150 Gr) Tabs 25/Bottle] 1 tab SL Q5MP PRN Sertraline HCl [Zoloft 50 mg Tablet] 50 mg PO QPM 05/15/16 Silodosin [Rapaflo] 8 mg PO QPM 05/15/16 Verapamil HCl [Verapamil ER] 120 mg PO Q12 05/15/16 Aspirin [Aspirin EC] 81 mg PO DAILY 06/02/16 Fish Oil/Dha/Epa [Fish Oil 1,200 mg Fish Oil] 1,200 mg PO DAILY 06/02/16 Polyethylene Glycol 3350 [Miralax Powder 17 gm/Packet] 17 gm PO HSP PRN Warfarin Sodium [Coumadin 2.5 mg Tablet] 2.5 mg PO AVILEZ@1000 06/02/16 Warfarin Sodium [Coumadin 5 mg Tablet] 5 mg PO MOTUWETHFRSA 06/02/16 Additional Information: Increase oral fluids. PT/INR checked as outpatient with primary care physician as scheduled. History of Present Illness Patient complains of: Hypotension History of Present Illness: ASIM CHI is a 81 year old male, with coronary artery disease, seen in [facility] where he underwent cardiac catheterization. Patient had prior stent placed and reportedly the stents were doing well. She has some blockage of about 50% to 60% on an artery and being treated medically. He did not have any chest pain since then. His cholesterol medication and amiodarone was discontinued. He was placed on Imdur and metoprolol. Since then the patient feels generally fatigued. Patient was scheduled to have a stress test with his manager public where he was noted to be hypotensive and was sent to the emergency room for intravenous fluid and observation. Patient denies any chest pain at all, nor any shortness of breath or diaphoresis. He felt nauseated however when he was lightheaded yesterday. Hospital Course Hospital Course: The patient was admitted to observation. The patient was gently hydrated with normal saline. Kayexalate was given for hyperkalemia. Subsequent monitoring shows normalization of level. Cardiac enzyme was negative. Patient's hypotension resolved. Isosorbide was discontinued. Environmental Attorney was consulted and likewise recommended that the metoprolol be discontinued as well and keep the patient on verapamil. Patient improved and the symptoms resolved. Patient was cleared by cardiology service to be discharged. The rest of the hospital stays unremarkable. Patient was discharged home improved with above instructions. PT/INR check as outpatient with primary care physician as scheduled. Physical Exam Vital Signs: Temp Pulse Resp BP Pulse Ox 98.3 F 80 15 124/59 L 95 06/03/16 11:01 06/03/16 09:50 06/03/16 11:01 06/03/16 11:01 06/03/16 11:01 Intake & Output 06/02/16 06/03/16 06/04/16 06:59 06:59 06:59 Output Total 700 Balance -700 Weight 83 kg General appearance: PRESENT: no acute distress, cooperative Head exam: PRESENT: normocephalic Eye exam: PRESENT: EOMI Mouth exam: PRESENT: moist, neck supple Neck exam: ABSENT: JVD Respiratory exam: PRESENT: clear to auscultation manuel Cardiovascular exam: PRESENT: irregular rhythm. ABSENT: gallop GI/Abdominal exam: PRESENT: normal bowel sounds, soft. ABSENT: distended, tenderness Neurological exam: PRESENT: alert, awake, oriented to person, oriented to place , oriented to time, oriented to situation Skin exam: PRESENT: dry, warm. ABSENT: cyanosis Results Laboratory Results: 06/03/16 06:32 06/03/16 14:36 06/03/16 06/03/16 06/03/16 06:32 06:32 14:36 WBC 8.8 RBC 3.90 L Hgb 12.2 L Hct 36.4 L MCV 93 MCH 31.3 MCHC 33.5 RDW 15.3 H Plt Count 238 Sodium 139.6 Potassium 5.2 H 4.7 Chloride 103 Carbon Dioxide 26 Anion Gap 11 BUN 22 H Creatinine 0.82 Est GFR ( Amer) > 60 Est GFR (Non-Af Amer) > 60 Glucose 102 Calcium 9.0 Impressions: Chest X-Ray 06/02/16 17:49 IMPRESSION: No acute finding. Qualifiers PATEINT BEING DISCHARGED WITH ANY OF THE FOLLOWING DIAGNOSIS?: No Plan Discharge Plan: Follow-up with manager public in 3 days. Follow-up with primary care physician in one week. Time Spent: Less than 30 Minutes
[2016-06-03 17:21] VITALS: BP 137/61
[2016-06-03] MEDS ORDERED: SERTRALINE HCL 50 MG TABLET PO SCH (18:00)
[2016-06-03] MEDS ORDERED: (PENDING PHARMACY ID) (Silodosin [Rapaflo] 8 MG) PO SCH (18:00)
[2016-06-03] MEDS ORDERED: ALLOPURINOL 300 MG TABLET PO SCH (18:00)
[2016-06-03] MEDS ORDERED: WARFARIN SODIUM 5 MG TABLET PO SCH (22:00)
--- NOTE | 2016-06-09 07:48 | CONSULTATION REPORT E ---
Consultation Report NAME: ASIM CHI : 1935 AGE: 81Y DATE: 06/03/2016 ED42 A TO: SUSIE DAVIS M.D. FROM: SUSIE DAVIS M.D. Requesting Physician REASON FOR CONSULTATION: Adjustment of medications in a patient, who is hypotensive. Note that previously dictated consult was not found; hence, I am re-dictating the consult from notes that I have on this patient. HISTORY OF PRESENT ILLNESS: The patient is an 81-year-old male who is very well known to me with a history of coronary artery disease, history of stents in the LAD and RCA, history of paroxysmal atrial fibrillation, history of diabetes mellitus type 2, [id number], without complications and history of hypertension and hyperlipidemia, who was admitted here in April of 2016 in the mid month with symptoms of shortness of breath and chest pain. At that time, he was found to have abnormal LFTs and his statins and amiodarone were discontinued. His shortness of breath improved, but the patient's *------* was negative. The patient continued to have exertional chest pressure pain and the patient was transferred to [facility], where he had a cardiac catheterization, which showed that the patient had a calcified 60% lesion in the LAD and also a moderate lesion in the ostium of the diagonal and nonobstructive disease in the RCA stent. His fractional flow reserve test of the LAD and the diagonal were negative and hence, the patient was relegated to medical treatment. He was placed on metoprolol 12.5 mg p.o. b.i.d. and also, his Cardizem was increased to 240 mg p.o. q. 12 hours and the patient was recommended to have cardiac rehabilitation. I have seen the patient and at that time, the patient was stable and I had scheduled the patient for a modified Gilbert protocol in the office on the treadmill since the patient did have some gait imbalance secondary to amiodarone prior to me referring him for cardiac rehab. At the start of the test on the 06/02/2016 on the treadmill, his blood pressure was 72/40 and the patient complained of dizziness and the patient was also found to be dehydrated. Although he had no angina symptoms at that time or shortness of breath, PND or orthopnea, the patient was sent to the emergency room for hydration. In the emergency room, instead of the patient getting normal saline at 100 mL/hour, he got a Bolus of normal saline of 1 liter. I had called the nurse on the night of 06/02/2016 and told her to hold all his medications and just to give the patient his Coumadin. His Coumadin level was therapeutic at that time. I saw him in the evening of 06/02/2016 and also in the morning of 06/03/2016. The formal consult was rendered 06/03/2016. At that time, the patient's blood pressure was stable. He had no chest pain or discomfort. He had no PND or orthopnea. There was no recurrence of atrial fibrillation. There were TIA or CVA symptoms. His INR was therapeutic on Coumadin and there were no bleeding complications. PAST MEDICAL HISTORY: Positive for history of coronary artery disease. He had a Taxus stent in the proximal LAD and a bare-metal stent in the mid right coronary artery in 2006 for anginal symptoms. Subsequently, he had a cardiac catheterization recently in April, which report that the patient did not need any revascularization and was placed on medical therapy. His amiodarone was stopped due to abnormal LFTs and also his statin was stopped, but he was also placed on metoprolol 12.5 mg p.o. q. 12 hours and also the patient's Cardizem 240 mg p.o. q. 12 hours. He has as history of paroxysmal atrial fibrillation. The patient is on Coumadin. He has problems with amiodarone in the form of gait imbalance and this was reduced and in spite of that, the patient had abnormal LFTs. He also has mild pulmonary hypertension. There is no history of congestive heart failure. There is no history of carotid disease. There is no history of asthma or COPD. There is no history of sleep apnea. He has no history of pulmonary embolism or DVT. There is no history of chronic kidney disease. 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 He has also had esophageal polyps, which in April had been removed and the patient was on Lovenox bridge. His last dose of Lovenox was in the morning of 05/05/2006 and the patient had restarted and his INR on 05/05/2006 was 2.1. There is history of thyroid disease. There is no history of TIA or CVA. There is history of abnormal liver function test as mentioned earlier. The patient has as history of noninsulin-dependent diabetes mellitus type 2 with no complications, not requiring insulin. There is history of anxiety of depression. There is no history of thyroid disease. PAST SURGICAL HISTORY: Positive for: 1. Cholecystectomy. 2. Appendectomy. 3. Skin cancer removal. 4. Knee replacement. 5. History of cardiac catheterization and stent placement. 6. History of urethral dilatation in the remote past. ALLERGIES: He is allergic to ZOSYN, PROCAINE, AND OXYCODONE. FAMILY HISTORY: Positive for heart attack and stroke. PERSONAL HISTORY: He quit smoking a longtime ago. There is no history of EtOH abuse. CODE STAUS: The patient is a FULL CODE. His is the surrogate healthcare decision maker. MEDICATIONS: Include: 1. Zyloprim 300 mg p.o. q.p.m. 2. Colace 100 mg p.o. t.i.d. 3. Verapamil 120 mg q. 12 hours. 4. He is on Silodosin i.e. Rapaflo 8 mg capsule p.o. q.p.m. 5. He is on Zoloft 50 mg p.o. q.p.m. 6. He is on multivitamin 1 tablet p.o. daily. 7. He is on melatonin 3 mg p.o. q.h.s. 8. He is on lansoprazole 30 mg p.o. b.i.d. 9. He is on vitamin D 50,000 units q. weekly. 10. He is nitroglycerin sublingual 0.4 mg p.r.n. chest pain. 11. He is on fish oil 1200 mg p.o. daily. 12. He is on warfarin 2.5 mg p.o. on Sundays and the rest of the days, he is on 5 mg p.o. 13. He is on MiraLax 17 g p.o. q.h.s. 14. He is on metoprolol 25 mg half-tablet p.o. b.i.d. 15. He is also on isosorbide mononitrate 60 mg p.o. daily. 16. Aspirin 81 mg p.o. daily. Apart from the patient receiving Coumadin, all his other medications have been discontinued during that admission on 06/02/2016. REVIEW OF SYSTEMS: CONSTITUTIONAL: Complains of generalized fatigue and weakness, but no fever, chills, or rigors. EYES: No history of amblyopia or diplopia. No history of amaurosis fugax. HEAD: No history of head injury or headaches. EARS: The patient denies tinnitus. There is no vertigo. He does have hearing aids and he is still hard of hearing. There is no dizziness. There is no earache. There is no ear discharge. NOSE: There is no frequent cold. There is no hay fever. There are no nosebleeds. There are no nasal polys. MOUTH: There is no bleeding from the gums. There is no altered taste sensation. No ulcers in the mouth. THROAT: No history of odynophagia or dysphagia. No history of recurrent sore throats. NECK: No history of enlarged neck lymph nodes and no goiter. SKIN: There is no psoriasis. There is past history of skin cancer with no recurrence after removal. There is no history of pruritus. There is no history of yellowish discoloration of the skin. LUNGS: There is history of chronic bronchiectasis and scarring of the medial lung base. There is no acute infiltration. There is pleural effusion. There is no history of pneumothorax. There is no history of asthma or COPD. There is no history of pulmonary embolism. The patient does have some shortness of breath with more than moderate exertion, which has improved with mild exertion earlier. This improvement being secondary to the patient being off amiodarone. CARDIAC: There is no history of SD, but history of coronary artery disease, history of bare-metal stents, which as mentioned earlier, the patient had recent cardiac catheterization and relegated to medical treatment. The patient has a history of hypertension, but on the day of the stress test, the patient was found to be hypotensive with some dizziness and weakness. GASTROINTESTINAL: No history of GI bleed. No history of peptic ulcer disease. No history of alter bowel movements. He has a history of esophageal cancer, which has been cured. He had several polyps removed from the esophagus, recently was done about 10 days prior to his admission in mid April. These esophageal cancer and polyp resections being done in [facility]. The patient whenever he has this, he is on Lovenox bridge. ENDOCRINE: History of diabetes mellitus type 2 without complications. He is noninsulin-dependent. No history of polydipsia or polyuria. No history of heat or cold intolerance. No history of thyroid disease. RENAL: No history of chronic kidney disease. No symptoms of enlarged prostate. No history of hematuria, pyuria, or dysuria. MUSCULOSKELETAL: Denies any arthritis or collagen vascular disease. CENTRAL NERVOUS SYSTEM: No history of TIA or CVA. No history of sleep apnea. No history of seizures, headaches, or migraines. He has some gait problems with amiodarone, which has been stopped and the gait has improved. PSYCHIATRIC: The patient does have some mild anxiety and depression, which is well controlled with the current Zoloft. HEMATOLOGICAL: There is no history of bleeding diathesis or clotting disorders. METABOLIC: He has a history of gout present. He has a history of dyslipidemia. DISPOSITION: The patient is a FULL CODE. His is the surrogate healthcare decision maker. PHYSICAL EXAMINATION: GENERAL: The patient is well built and well nourished, at present in no acute distress. VITAL SIGNS: He is afebrile with the temperature of 98.3 degrees Fahrenheit, pulse is 82 beats per minute, blood pressure is 124/59, respirations are 15 per minute, O2 saturations are 95% on room air. HEAD: Atraumatic, normocephalic. EYES: Pupils are equal, round, regular, reactive to light and accommodation. Extraocular movements are normal. There is no conjunctival pallor. There is no scleral icterus. EARS: Tympanic membranes are intact. External auditory canals are clear. NOSE: There is no deviated nasal septum. There is no inflammation of the nasal mucous membrane. MOUTH: Mucous membranes of the mouth are moist. Tongue is moist. There are no ulcers. There is no bleeding from the gums. THROAT: There is no redness of the oropharynx. There are no exudates in the throat. SKIN: There is no petechia or ecchymosis. There are no skin lesions or skin rashes. NECK: Supple. There is no JVD. Carotids are equal. There is no bruit. Trachea is central. There is no goiter. LUNGS: Clear to auscultation and percussion. CHEST: There is no chest wall tenderness. S1 and S2 are heard. There is no S3 gallop. S1 is of normal intensity. There is systolic murmur of mild mitral regurgitation present. There is no rub. ABDOMEN: Soft, nontender. There is no hepatosplenomegaly. Bowel sounds are well heard. EXTREMITIES: Femorals are well felt. There are no femoral bruits. Leg pulses are well felt. There is no pedal edema. There is no cyanosis or clubbing. There is no calf tenderness. There is no DVT or cellulitis. CENTRAL NERVOUS SYSTEM: The patient is conscious, awake, alert, oriented x3 with no focal deficits. PSYCHIATRIC: The patient does not appear to be anxious or depressed. His judgment and insight are intact. His affect is normal. DIAGNOSTIC DATA: The patient's EKG shows sinus rhythm with right bundle branch block pattern. No acute changes. The patient's chest x-ray shows some chronic interstitial changes in the right mid lung base, but no evidence of pneumonia or heart failure. The patient's white count is 8,800; hemoglobin is 12.2; hematocrit 36.4; and platelet count 238,000. The patient's sodium was 139.6 and potassium was 5.2. Note that subsequently repeat showed that it is 4.7. His chloride is 103 and CO2 is 26. The patient's BUN is 22, creatinine 0.82, GFR is greater than 60, his glucose is 102, and his calcium is 9.0. His troponin I is negative. His total protein is 6.4, albumin is 3.9, and his TSH is normal at 1.79. The patient's ProTime is 24.4 with INR of 2.10. IMPRESSION: 1. HYPOTENSION, MOST LIKELY SECONDARY TO DEHYDRATION AND ALSO NEW MEDICATIONS STARTED SUCH METOPROLOL AND ISOSORBIDE. THESE HAVE BEEN STOPPED AND THE PATIENT'S BLOOD PRESSURE IS STABLE. 2. DYSPNEA ON EXERTION, HAS MUCH IMPROVED. THE PATIENT WILL BENEFIT FROM REHAB. 3. CORONARY ARTERY DISEASE. HISTORY OF LEFT ANTERIOR DESCENDING AND RIGHT CORONARY ARTERY STENTS WITH NO SIGNIFICANT RESTENOTIC LESIONS BY FRACTIONAL FLOW RESERVE STUDY DURING CARDIAC CATHETERIZATION. THE PATIENT RELEGATED TO MEDICAL TREATMENT. 4. HYPERTENSION, WELL CONTROLLED. EARLIER, THE BLOOD PRESSURE WAS LOW DUE TO THE PATIENT BEING ON NEW MEDICATIONS AND DEHYDRATION. 5. HYPOTENSION SECONDARY TO DEHYDRATION AND THE PATIENT BEING ON NEW MEDICATIONS SUCH METOPROLOL AND ISOSORBIDE MONONITRATE. 6. PAROXYSMAL ATRIAL FIBRILLATION, AT PRESENT IN SINUS RHYTHM. 7. HISTORY OF ESOPHAGEAL CANCER. 8. CHAN'S ESOPHAGUS AND ESOPHAGEAL POLYPS, STATUS POST REMOVAL. LAST WAS IN [facility]. 9. DIABETES MELLITUS TYPE 2, [id number] WITHOUT COMPLICATIONS. 10. MODERATE PULMONARY HYPERTENSION WITH RIGHT VENTRICULAR SYSTOLIC PRESSURE OF 50-60. 11. MILD MITRAL REGURGITATION AND TRACE TRICUSPID REGURGITATION. 12. HISTORY OF GOUT. 13. HISTORY OF ABNORMAL LIVER FUNCTION TESTS. WE WILL RECHECK THE LIVER FUNCTION TESTS LATER. ACTUALLY, IT WAS CHECKED IN AN OUTPATIENT AND THE LIVER FUNCTION TESTS HAD COMEBACK TO NORMAL EXCEPT FOR MILDLY ELEVATED ALKALINE PHOS. 14. GAIT IMBALANCE. MUCH IMPROVED AFTER THE CESSATION OF AMIODARONE. 15. DYSLIPIDEMIA. RECOMMENDATIONS: I would continue the patient on current medications including Coumadin and aspirin. We will stop the patient's statin and we will stop the patient's isosorbide mononitrate and have the patient take sublingual nitroglycerin if he has chest pain. We would recommend stopping also the metoprolol since the patient in the past has had problems with blood pressure on that. I would continue the patient's anti-gout medication and Rapaflo. We would also discharge the patient on verapamil 120 mg p.o. q. 12 hours. Continue his other medications. We will schedule the patient now for modified Gilbert EKG and treadmill stress test in the office prior to referring the patient to the cardiac rehab. All of this discussed with the patient and the patient's . TIME SPENT: Note: 50 minutes spent on this patient including review of his old charts and office charts and records and cardiac catheterization reports from [facility]. Note: More than 50% of the time spent on direct patient care. Note that the patient's medications were reviewed and medications have been alerted and stopped. Discussed this with the hospitalist taking care of the patient. The patient has my cell phone number and he will call me and I will set him up for modified Gilbert protocol EKG and treadmill stress test prior to sending him for cardiac rehab. The patient will be discharged today. Thanking you. DICTATING PHYSICIAN: SUSIE DAVIS M.D. [id number] PHY#: [id number] ID: [id number] JOB#: [id number] ACCT: [id number] cc:SUSIE DAVIS M.D. >
== END 2016-06-03 17:10 | disposition home or self-care (01) ==
LOC: ER 17:39 → UNDOADMOB 19:41 → EH 19:41
PROVIDERS: ADMIT Specialist; ATTEND Specialist
DX: I95.9 Hypotension, unspecified (principal); E87.5 Hyperkalemia; I25.10 Atherosclerotic heart disease of native coronary artery without angina pectoris; E11.9 Type 2 diabetes mellitus without complications; E78.5 Hyperlipidemia, unspecified; K21.9 Gastro-esophageal reflux disease without esophagitis; I48.0 Paroxysmal atrial fibrillation; Z79.01 Long term (current) use of anticoagulants; I10 Essential (primary) hypertension; I27.2 Other secondary pulmonary hypertension; I08.1 Rheumatic disorders of both mitral and tricuspid valves; R26.9 Unspecified abnormalities of gait and mobility
CPT/HCPCS: 93005; 99285; 36415 ×2; 84132; 84443; 85025; 85027; 85610 ×2; 85730; 80048; 80053; 84484; 71020; 93010; G0378 ×2; A9270 ×4; J7030

== ENCOUNTER → 2016-06-10 | Outpatient (CLI) | payer MEDICARE, OTHER ==
[2016-06-10 13:36] LABS: PROTHROMBIN TIME 18.5 SEC (11.4-15.4)
== END ==
LOC: OD 12:29
PROVIDERS: ATTEND Internal Medicine
DX: Z79.01 Long term (current) use of anticoagulants (principal)
CPT/HCPCS: 36415; 85610

== ENCOUNTER → 2016-06-23 | Outpatient (CLI) | payer MEDICARE, OTHER | LOC: OD 12:31 | PROVIDERS: ATTEND Internal Medicine | DX: Z79.01 Long term (current) use of anticoagulants (principal) | CPT/HCPCS: 36415; 85610 ==

== ENCOUNTER 2016-07-07 16:37 | Emergency (ER) | payer MEDICARE, OTHER ==
--- NOTE | 2016-07-07 17:35 | ER Document Report ---
ED Medical Screen (RME) - General Chief Complaint: Foot Pain Stated Complaint: FOOT NUMBNESS Notes: Patient is having problems with his right lower leg and foot. He says he went to stand up about 3:30 PM and his right foot wouldn't move and he was unable to turn and as a result he fell against the wall, catching himself with his arms. He did not fall to the floor. He is very adamant that he did not injure or twist his right foot or ankle, but as soon as this happened, he began to have swelling of the right ankle and is now painful. He also is concerned because he can't extend the right leg at his knee and it doesn't want to work like it should. He's never had this problem before. Never had a stroke. Patient has a moderately swollen right ankle. It's tender to touch around the ankle. There is an excellent dorsalis pedis pulse. All the toes are inked and warm to the touch. Patient has a history of atrial fibrillation, but his heart sounds are very regular at this time. TRAVEL OUTSIDE OF THE [place] IN LAST 30 DAYS: No - Related Data Allergies/Adverse Reactions: alfuzosin [Alfuzosin] Allergy (Unknown, Verified 05/14/16 12:10) procaine HCl [From Novocain] Allergy (Unknown, Verified 05/14/16 12:10) Past Medical History - Social History Family history: Reviewed & Not Pertinent - Past Medical History Cardiac Medical History: Reports: Hx Atrial Fibrillation, Hx Coronary Artery Disease, Hx Hypercholesterolemia, Hx Hypertension Denies: Hx Heart Murmur Pulmonary Medical History: Denies: Hx Tuberculosis Neurological Medical History: Denies: Hx Seizures Endocrine Medical History: Reports: Hx Diabetes Mellitus Type 2 - Diet and exercise controlled Renal/ Medical History: Reports: Hx Kidney Stones. Denies: Hx Peritoneal Dialysis GI Medical History: Reports: Hx Diverticulitis, Hx Gastroesophageal Reflux Disease, Hx Hiatal Hernia Musculoskeltal Medical History: Reports Hx Arthritis - all joints Psychiatric Medical History: Denies: Hx Depression Traumatic Medical History: Reports: Hx Fractures - Arm Past Surgical History: Reports: Hx Appendectomy, Hx Bowel Surgery - peg tube removal, Hx Cardiac Catheterization, Hx Cardiac Surgery - 2 stents, Hx Coronary Stent - x2, Hx Orthopedic Surgery - right knee replacement - Immunizations Hx Diphtheria, Pertussis, Tetanus Vaccination: Yes Physical Exam - Vital signs Vitals: Temp Pulse Resp BP Pulse Ox 97.8 F 97 18 125/66 97 07/07/16 17:04 07/07/16 17:04 07/07/16 17:04 07/07/16 17:04 07/07/16 17:04 Course - Vital Signs Vital signs: Temp Pulse Resp BP Pulse Ox 97.8 F 97 18 125/66 97 07/07/16 17:04 07/07/16 17:04 07/07/16 17:04 07/07/16 17:04 07/07/16 17:04
[2016-07-07 17:54] LABS: ABSOLUTE BASOPHILS # (AUTO) 0.1 10^3/uL (0.0-0.2); ABSOLUTE EOSINOPHILS # (AUTO) 0.1 10^3/uL (0.0-0.6); ABSOLUTE LYMPHOCYTES (AUTO) 2.1 10^3/uL (0.5-4.7); ABSOLUTE MONOCYTES (AUTO) 0.7 10^3/uL (0.1-1.4); ABSOLUTE NEUT (AUTO) 6.2 10^3/uL (1.7-8.2); BASOPHILS % (AUTO) 0.8 % (0-2); EOSINOPHILS % (AUTO) 1.2 % (0-6); HEMATOCRIT 39.3 % (37.9-51.0); HEMOGLOBIN 13.2 g/dL (13.5-17.0); HGB HCT DIFFERENCE 0.3; LYMPHOCYTES % (AUTO) 22.8 % (13-45); MEAN CORPUSCULAR HEMOGLOBIN 31.1 pg (27.0-33.4); MEAN CORPUSCULAR HGB CONC 33.7 g/dL (32.0-36.0); MEAN CORPUSCULAR VOLUME 93 fl (80-97); MONOCYTES % (AUTO) 7.7 % (3-13); RED BLOOD COUNT 4.25 10^6/uL (4.35-5.55); RED CELL DISTRIBUTION WIDTH 15.2 % (11.5-14.0); SEGMENTED NEUTROPHILS % (AUTO) 67.5 % (42-78); WHITE BLOOD COUNT 9.1 10^3/uL (4.0-10.5)
[2016-07-07 17:56] LABS: PROTHROMBIN TIME 26.2 SEC (11.4-15.4)
[2016-07-07 17:57] LABS: PARTIAL THROMBOPLASTIN TIME 43.6 SEC (23.5-35.8)
[2016-07-07 18:15] LABS: ALANINE AMINOTRANSFERASE 40 U/L (21-72); ALBUMIN 4.3 g/dL (3.5-5.0); ALKALINE PHOSPHATASE 147 U/L (38-126); ANION GAP 12 (5-19); ASPARTATE AMINO TRANSFERASE 30 U/L (17-59); BILIRUBIN,DIRECT 0.4 mg/dL (0.0-0.4); BILIRUBIN,TOTAL 0.7 mg/dL (0.2-1.3); BLOOD UREA NITROGEN 24 mg/dL (7-20); CALCIUM 9.5 mg/dL (8.4-10.2); CARBON DIOXIDE 27 mmol/L (22-30); CHLORIDE 102 mmol/L (98-107); CREATINE KINASE 32 U/L (55-170); CREATININE RESULT 0.92 mg/dL (0.52-1.25); GLUCOSE 119 mg/dL (75-110); SODIUM 141.1 mmol/L (137-145); TOTAL PROTEIN 6.9 g/dL (6.3-8.2)
[2016-07-07 18:26] LABS: CREATINE KINASE MB 0.68 ng/mL (<4.55)
[2016-07-07 18:28] LABS: TROPONIN I < 0.012 ng/mL
--- NOTE | 2016-07-07 18:30 | ER Document Report ---
ED Extremity Problem, Lower - General Chief Complaint: Foot Pain Stated Complaint: FOOT NUMBNESS Time seen by provider: 18:28 Mode of Arrival: Stretcher Information source: Patient TRAVEL OUTSIDE OF THE [place] IN LAST 30 DAYS: No - HPI Patient complains to provider of: Pain, Swelling Location: Ankle Occurred: Just prior to arrival Where: Home Onset/Duration: Sudden Quality of pain: Achy Severity: Moderate Pain Level: 3 Recent injury: Possibly Exacerbated by: Movement Relieved by: Nothing Notes: Patient is an 81-year-old male who presents to the emergency room complaining of swelling and pain to his left ankle, he states that he was sleeping in his easy chair, when he woke up he had numbness and tingling from the knee down on the right lower extremity, states he went to get up to stand on it, and was unable to bear weight, nearly fell but was able to catch himself to keep from falling, he does not remember injuring or twisting the ankle, however the numbness and tingling went away in less than an hour, and he started to develop pain and swelling to the lateral portion of the ankle, he denies any headache, no upper extremity weakness, no facial asymmetry, no speech difficulty, no low back pain, no bowel or bladder dysfunction, no numbness or tingling in the groin area, no history of similar symptoms previously, he does report that he continues to have a tingling sensation in his toes on the right side, and feels as though he cannot completely lift the right leg up off the bed as well - Related Data Allergies/Adverse Reactions: alfuzosin [Alfuzosin] Allergy (Unknown, Verified 05/14/16 12:10) procaine HCl [From Novocain] Allergy (Unknown, Verified 05/14/16 12:10) Past Medical History - General Information source: Patient - Social History Smoking Status: Former Smoker Chew tobacco use (# tins/day): No Frequency of alcohol use: None Drug Abuse: None Family History: CAD, Hyperlipidemia, Hypertension - Past Medical History Cardiac Medical History: Reports: Hx Atrial Fibrillation, Hx Coronary Artery Disease, Hx Hypercholesterolemia, Hx Hypertension Denies: Hx Heart Murmur Pulmonary Medical History: Denies: Hx Tuberculosis Neurological Medical History: Denies: Hx Seizures Endocrine Medical History: Reports: Hx Diabetes Mellitus Type 2 - Diet and exercise controlled Renal/ Medical History: Reports: Hx Kidney Stones. Denies: Hx Peritoneal Dialysis GI Medical History: Reports: Hx Diverticulitis, Hx Gastroesophageal Reflux Disease, Hx Hiatal Hernia Musculoskeltal Medical History: Reports Hx Arthritis - all joints Psychiatric Medical History: Denies: Hx Depression Traumatic Medical History: Reports: Hx Fractures - Arm Past Surgical History: Reports: Hx Appendectomy, Hx Bowel Surgery - peg tube removal, Hx Cardiac Catheterization, Hx Cardiac Surgery - 2 stents, Hx Coronary Stent - x2, Hx Orthopedic Surgery - right knee replacement - Immunizations Hx Diphtheria, Pertussis, Tetanus Vaccination: Yes Hx Pneumococcal Vaccination: 12/28/16 Review of Systems - Review of Systems Constitutional: No symptoms reported EENT: No symptoms reported Cardiovascular: No symptoms reported Respiratory: No symptoms reported Gastrointestinal: No symptoms reported Genitourinary: No symptoms reported Male Genitourinary: No symptoms reported Musculoskeletal: See HPI Skin: No symptoms reported Hematologic/Lymphatic: No symptoms reported Neurological/Psychological: Numbness, Tingling -: Yes All other systems reviewed and negative Physical Exam - Vital signs Vitals: Temp Pulse Resp BP Pulse Ox 97.8 F 97 18 125/66 97 07/07/16 17:04 07/07/16 17:04 07/07/16 17:04 07/07/16 17:04 07/07/16 17:04 Interpretation: Normal - General General appearance: Appears well, Alert - HEENT Head: Normocephalic, Atraumatic Eyes: Normal Pupils: PERRL - Respiratory Respiratory status: No respiratory distress Chest status: Nontender Breath sounds: Normal Chest palpation: Normal - Cardiovascular Rhythm: Regular Heart sounds: Normal auscultation Murmur: No - Abdominal Inspection: Normal Distension: No distension Bowel sounds: Normal Tenderness: Nontender Organomegaly: No organomegaly - Back Back: Normal, Nontender - Extremities General upper extremity: Normal inspection, Nontender, Normal color, Normal ROM , Normal temperature General lower extremity: Normal color, Normal temperature. No: Jen's sign Ankle: Tender - Tenderness and swelling to right lateral malleolus, pain with range of motion testing, 2+ DP pulses, distal sensation and motor is intact brisk capillary refill - Neurological Neuro grossly intact: Yes Cognition: Normal Orientation: AAOx4 Dirk Coma Scale Eye Opening: Spontaneous Dirk Coma Scale Verbal: Oriented Dirk Coma Scale Motor: Obeys Commands Dirk Coma Scale Total: 15 Speech: Normal Motor strength normal: LUE, RUE, LLE. 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 Kapadia be paged 07/07/16 19:57 Lab and imaging findings were discussed with patient and family members at bedside, patient has no facial asymmetry, no speech impairment, no weakness in the right upper extremity, his symptoms do not appear to be concerning for acute CVA, however it is more likely he has a peripheral neuropathy of the right lower extremity, which likely led to a acute ankle sprain, patient was placed in a posterior ankle splint, was offered pain medication which he declined, patient and family members were advised that although his stroke evaluation in the emergency room was negative today, they should keep a close eye on patient if he develops any weakness in the upper extremity, any facial asymmetry or speech impairment he should call 911 and return to the emergency room immediately, otherwise he does report he has an appointment with his primary care provider tomorrow morning, I did attempt to reach his primary care provider but did not receive a call back, but patient and several family members at bedside were comfortable with patient being discharged home this evening, they also report that he is a wheelchair at home that another family member will allow him to use while his ankle is healing, he was also provided with information for follow-up with orthopedics, patient and family members acknowledge understanding and agreement with this plan - Vital Signs Vital signs: Temp Pulse Resp BP Pulse Ox 98.0 F 97 19 139/85 H 98 07/07/16 18:44 07/07/16 17:04 07/07/16 18:35 07/07/16 18:35 07/07/16 18:35 - Laboratory Result Diagrams: 07/07/16 17:43 07/07/16 17:43 Laboratory results interpreted by me: 07/07/16 07/07/16 07/07/16 17:43 17:43 17:43 RBC 4.25 L Hgb 13.2 L RDW 15.2 H PT 26.2 H APTT 43.6 H BUN 24 H Glucose 119 H Alkaline Phosphatase 147 H Creatine Kinase 32 L - Diagnostic Test Radiology reviewed: Image reviewed, Reports reviewed - EKG Interpretation by Me EKG shows normal: Sinus rhythm Rate: Normal Rhythm: NSR [place]/QRS: RBBB When compared to previous EKG there are: No significant change Procedures - Immobilization Right Ankle Time completed: 18:30 Pre-Proc Neuro Vasc Exam: Normal Immobilizer type: Posterior ankle Performed by: PCT Post-Proc Neuro Vasc Exam: Normal Alignment checked and good: Yes Discharge - Discharge Clinical Impression: Right ankle sprain Qualifiers: Encounter type: initial encounter Involved ligament of ankle: tibiofibular ligament Qualified Code(s): S93.431A - Sprain of tibiofibular ligament of right ankle, initial encounter Peripheral neuropathy Qualifiers: Peripheral neuropathy type: mononeuropathy, unspecified Qualified Code(s): G58.9 - Mononeuropathy, unspecified Condition: Stable Disposition: HOME, SELF-CARE Instructions: Ice Packs ([facility]), Splint Precautions ([facility]), Sprained Ankle ([facility]), Neuropathy ([facility]) Additional Instructions: Follow up with your primary care provider in one to 2 days. Return to the emergency room immediately if symptoms worsen or any additional concerns. Follow up with an orthopedic surgeon in one to 2 days. Return to the emergency room immediately if symptoms worsen or any additional concerns. Ice and elevate the affected extremity. Limit weightbearing. Referrals: PUJA ZAMORANO DO [ACTIVE STAFF] - Follow up as needed
[2016-07-07 18:37] VITALS: BP 139/85
--- NOTE | 2016-07-07 18:57 | EKG REPORT ---
SEVERITY:- ABNORMAL ECG - SINUS RHYTHM RIGHT BUNDLE BRANCH BLOCK : Confirmed by: Maldonado Alfaro MD 07-Jul-2016 18:56:52
== END 2016-07-07 18:49 | disposition home or self-care (01) ==
LOC: ER 16:37
PROC: 2W3SX1Z Immobilization of Right Foot using Splint (ICD-10-PCS; principal; 2016-07-07)
DX: S93.431A Sprain of tibiofibular ligament of right ankle, initial encounter (principal); G58.9 Mononeuropathy, unspecified; R20.0 Anesthesia of skin; M79.89 Other specified soft tissue disorders; M25.572 Pain in left ankle and joints of left foot; Z87.891 Personal history of nicotine dependence; X58.XXXA Exposure to other specified factors, initial encounter
CPT/HCPCS: 36415; 70450; 71010; 80053; 82550; 82553; 84484; 85025; 85610; 85730; 93005; 93010; 99284

== ENCOUNTER → 2016-07-22 | Outpatient (CLI) | payer MEDICARE, OTHER ==
[2016-07-22 11:40] LABS: PROTHROMBIN TIME 25.1 SEC (11.4-15.4)
== END ==
LOC: OD 10:48
PROVIDERS: ATTEND Internal Medicine
DX: Z79.01 Long term (current) use of anticoagulants (principal)
CPT/HCPCS: 36415; 85610

== ENCOUNTER → 2016-08-26 | Outpatient (CLI) | payer MEDICARE, OTHER | LOC: OD 13:23 | PROVIDERS: ATTEND Internal Medicine | DX: Z79.01 Long term (current) use of anticoagulants (principal); Z51.81 Encounter for therapeutic drug level monitoring | CPT/HCPCS: 36415; 85610 ==

== ENCOUNTER → 2016-09-19 | Outpatient (CLI) | payer MEDICARE, OTHER ==
[2016-09-19 12:18] LABS: PROTHROMBIN TIME 21.3 SEC (11.4-15.4)
== END ==
LOC: OD 11:11
PROVIDERS: ATTEND Internal Medicine
DX: Z79.01 Long term (current) use of anticoagulants (principal)
CPT/HCPCS: 36415; 85610

== ENCOUNTER → 2016-10-06 | Outpatient (CLI) | payer MEDICARE, OTHER ==
[2016-10-06 12:49] LABS: PROTHROMBIN TIME 23.9 SEC (11.4-15.4)
== END ==
LOC: OD 09:55
PROVIDERS: ATTEND Internal Medicine
DX: Z51.81 Encounter for therapeutic drug level monitoring (principal); Z79.01 Long term (current) use of anticoagulants
CPT/HCPCS: 36415; 85610

== ENCOUNTER → 2016-11-14 | Outpatient (CLI) | payer MEDICARE, OTHER ==
[2016-11-14 16:02] LABS: PROTHROMBIN TIME 20.7 SEC (11.4-15.4)
== END ==
LOC: OD 15:19
PROVIDERS: ATTEND Internal Medicine
DX: Z79.01 Long term (current) use of anticoagulants (principal)
CPT/HCPCS: 36415; 85610

== ENCOUNTER → 2016-12-02 | Outpatient (CLI) | payer MEDICARE, OTHER ==
[2016-12-02 11:02] LABS: PROTHROMBIN TIME 23.8 SEC (11.4-15.4)
[2016-12-02 11:24] LABS: ALANINE AMINOTRANSFERASE 24 U/L (21-72); ALBUMIN 4.2 g/dL (3.5-5.0); ALKALINE PHOSPHATASE 142 U/L (38-126); ANION GAP 11 (5-19); ASPARTATE AMINO TRANSFERASE 24 U/L (17-59); BILIRUBIN,DIRECT 0.4 mg/dL (0.0-0.4); BILIRUBIN,TOTAL 0.6 mg/dL (0.2-1.3); BLOOD UREA NITROGEN 20 mg/dL (7-20); CALCIUM 9.4 mg/dL (8.4-10.2); CARBON DIOXIDE 30 mmol/L (22-30); CHLORIDE 101 mmol/L (98-107); CHOLESTEROL 183.91 mg/dL (0-200); CREATININE RESULT 0.86 mg/dL (0.52-1.25); DIGOXIN 0.58 ng/mL (0.8-2.0); Direct HDL 34 mg/dL (>40); GLUCOSE 107 mg/dL (75-110); POTASSIUM 4.9 mmol/L (3.6-5.0); SODIUM 142.2 mmol/L (137-145); TOTAL PROTEIN 6.9 g/dL (6.3-8.2); TRIGLYCERIDES 131 mg/dL (<150)
[2016-12-02 11:33] LABS: DIRECT LDL 125 mg/dL (<100)
[2016-12-02 11:48] LABS: FREE T3 4.63 pg/mL (2.77-5.27)
[2016-12-02 12:01] LABS: THYROID STIMULATING HORMONE 1.29 uIU/mL (0.47-4.68)
== END ==
LOC: OD 09:53
PROVIDERS: ATTEND Specialist
DX: Z79.01 Long term (current) use of anticoagulants (principal); I25.10 Atherosclerotic heart disease of native coronary artery without angina pectoris; I10 Essential (primary) hypertension; E03.9 Hypothyroidism, unspecified; E78.4 Other hyperlipidemia; I27.2 Other secondary pulmonary hypertension; I34.0 Nonrheumatic mitral (valve) insufficiency; I35.1 Nonrheumatic aortic (valve) insufficiency; I36.1 Nonrheumatic tricuspid (valve) insufficiency; I48.0 Paroxysmal atrial fibrillation; K21.9 Gastro-esophageal reflux disease without esophagitis; R01.1 Cardiac murmur, unspecified; Z95.5 Presence of coronary angioplasty implant and graft; E11.9 Type 2 diabetes mellitus without complications; R94.5 Abnormal results of liver function studies; I45.10 Unspecified right bundle-branch block; I25.119 Atherosclerotic heart disease of native coronary artery with unspecified angina pectoris; I25.2 Old myocardial infarction; I45.19 Other right bundle-branch block; E78.5 Hyperlipidemia, unspecified; Z79.899 Other long term (current) drug therapy
CPT/HCPCS: 36415; 80048; 80061; 80076; 80162; 83036; 84439; 84443; 84481; 85610

== ENCOUNTER 2016-12-15 11:23 | Emergency (ER) | payer MEDICARE, OTHER ==
--- NOTE | 2016-12-15 12:39 | ER Document Report ---
ED GI Bleed / Rectal Pain - General Chief Complaint: Black/Tarry Stools Stated Complaint: HEAD PAIN Time Seen by Provider: 12/15/16 11:56 Information source: Patient Notes: 81-year-old male who presents today from Dr. Vasquez's office, a local PCP, with the onset around 12 midnight having some lower abdominal pain with a dark episode of diarrhea 1. Patient states no abdominal pain since that incident. Patient denies any nausea or vomiting. Patient states this morning he was walking up some steps and felt a little "lightheaded". He also states the very slow development of a 2 out of 10 maximal "pressures" headache. He denies any focal weakness or numbness. Patient denies any chest pain, tachycardia, palpitations, or shortness of breath. He denies any calf pain or leg swelling. Patient is on Coumadin secondary to atrial fibrillation. TRAVEL OUTSIDE OF THE [place] IN LAST 30 DAYS: No - HPI Patient complains to provider of: Other - See above Onset: Other - See above Timing/Duration: Better Quality of pain: Dull Severity of symptoms: Mild Pain Level: 1 Rectal bleeding: Other - See above Dark Stools: Black Use of: Warfarin Associated symptoms: Other - See above Exacerbated by: Denies Relieved by: Denies Similar symptoms previously: No Recently seen / treated by doctor: Yes - Related Data Allergies/Adverse Reactions: alfuzosin [Alfuzosin] Allergy (Unknown, Verified 12/15/16 13:03) procaine HCl [From Novocain] Allergy (Unknown, Verified 12/15/16 13:03) Past Medical History - General Information source: Patient - Social History Smoking Status: Unknown if Ever Smoked Cigarette use (# per day): No Chew tobacco use (# tins/day): No Smoking Education Provided: No Frequency of alcohol use: None Drug Abuse: None Family History: CAD, Hyperlipidemia, Hypertension Patient has suicidal ideation: No - Past Medical History Cardiac Medical History: Reports: Hx Atrial Fibrillation, Hx Coronary Artery Disease, Hx Hypercholesterolemia, Hx Hypertension Denies: Hx Heart Murmur Pulmonary Medical History: Denies: Hx Tuberculosis Neurological Medical History: Denies: Hx Seizures Endocrine Medical History: Reports: Hx Diabetes Mellitus Type 2 - Diet and exercise controlled Renal/ Medical History: Reports: Hx Kidney Stones. Denies: Hx Peritoneal Dialysis GI Medical History: Reports: Hx Diverticulitis, Hx Gastroesophageal Reflux Disease, Hx Hiatal Hernia Musculoskeltal Medical History: Reports Hx Arthritis - all joints Psychiatric Medical History: Denies: Hx Depression Traumatic Medical History: Reports: Hx Fractures - Arm Past Surgical History: Reports: Hx Appendectomy, Hx Bowel Surgery - peg tube removal, Hx Cardiac Catheterization, Hx Cardiac Surgery - 2 stents, Hx Coronary Stent - x2, Hx Orthopedic Surgery - right knee replacement - Immunizations Hx Diphtheria, Pertussis, Tetanus Vaccination: Yes Hx Pneumococcal Vaccination: 12/28/16 Review of Systems - Review of Systems Constitutional: denies: Fever EENT: denies: Eye discharge, Nose discharge Cardiovascular: denies: Chest pain, Palpitations Respiratory: denies: Short of breath Gastrointestinal: denies: Vomiting Genitourinary: denies: Dysuria Musculoskeletal: denies: Leg swelling Skin: Other - no hives. denies: Rash Neurological/Psychological: Other - no slurred speech -: Yes All other systems reviewed and negative Physical Exam - Vital signs Vitals: Temp Pulse BP Pulse Ox 97.8 F 95 155/83 H 98 12/15/16 11:28 12/15/16 11:28 12/15/16 11:28 12/15/16 11:28 Notes: Reviewed vital signs and nursing note as charted by RN. CONSTITUTIONAL: Alert and oriented and responds appropriately to questions. Well -appearing; well-nourished HEAD: Normocephalic; atraumatic EYES: PERRL; Sclerae non-icteric ENT: Normal nose; no rhinorrhea; moist mucous membranes NECK: Supple without meningismus; non-tender; no cervical lymphadenopathy, no masses CARD: Regular rate and rhythm; no murmurs RESP: Normal chest excursion without splinting or tachypnea; breath sounds clear and equal bilaterally ABD/GI: Normal bowel sounds; non-distended; soft, non-tender; no abdominal bruits or palpable masses GI/: Patient has no gross blood and the Hemoccult has been sent BACK: The back appears normal and is non-tender to palpation, there is no CVA tenderness EXT: Normal ROM in all joints; non-tender to palpation; no cyanosis, no effusions, no edema SKIN: Normal color for age and race; warm; dry; good turgor; capillary refill < 2 seconds; no acute lesions noted NEURO: CN 2-12 intact. Pt has 5/5 bilateral upper and lower extremity strength with sensation intact to light touch. Pt has normal bilateral finger to nose. PSYCH: The patient's mood and manner are appropriate. Grooming and personal hygiene are appropriate. Course - Re-evaluation Re-evalutation: 12/15/16 12:39 Given the above history and physical examination, basic labs, INR level, and a cardiac panel has been started. CT scan of the head has been ordered. Patient' s pain was 2 out of 10 at onset and is currently 2 out of 10. He has no focal neurological deficits. I do believe subarachnoid hemorrhage to be unlikely but the patient is on blood thinning medications. 12/15/16 13:17 EKG shows a heart of 74, normal sinus rhythm, right bundle branch block, no obvious ST elevation or depression. Old EKG from July 07, 2016 shows no obvious appreciable change. 12/15/16 13:48 CT of the head is unremarkable. INR is within therapeutic limits. Hemoglobin is 14. Troponin is unremarkable. Urinalysis shows no infection. Patient still has no focal neurological deficits. 12/15/16 15:25 Patient still denies any abdominal pain. I called and spoke to the primary care physician Dr. Mcgill we both agree that a repeat troponin at the three-hour clark is reasonable. Patient still has no focal neurological deficits. 12/15/16 16:59 Second troponin is unremarkable. Labs as recorded. Patient still has no abdominal pain, headache has resolved, and the patient has no focal neurological deficits. - Vital Signs Vital signs: Temp Pulse Resp BP Pulse Ox 97.8 F 95 16 140/91 H 95 12/15/16 11:28 12/15/16 11:28 12/15/16 16:01 12/15/16 16:01 12/15/16 16:01 - Laboratory Result Diagrams: 12/15/16 12:57 12/15/16 12:57 Laboratory results interpreted by me: 12/15/16 12/15/16 12/15/16 12:57 12:57 12:57 RDW 15.8 H PT 24.0 H APTT 44.1 H Alkaline Phosphatase 157 H Discharge - Discharge Clinical Impression: Lightheaded Diarrhea Qualifiers: Diarrhea type: unspecified type Qualified Code(s): R19.7 - Diarrhea, unspecified Condition: Good Disposition: HOME, SELF-CARE Additional Instructions: Please come back immediately for any return of lightheadedness, any dizziness, any abdominal pain, any fever, any chest pain, or any other acute problems. Please make sure that you follow-up as we have discussed with Dr. Sanchez tomorrow by calling the office. Referrals: LOCAL[facility],NO [Primary Care Provider] - Follow up as needed
[2016-12-15 13:08] LABS: ABSOLUTE BASOPHILS # (AUTO) 0.1 10^3/uL (0.0-0.2); ABSOLUTE EOSINOPHILS # (AUTO) 0.1 10^3/uL (0.0-0.6); ABSOLUTE LYMPHOCYTES (AUTO) 2.8 10^3/uL (0.5-4.7); ABSOLUTE MONOCYTES (AUTO) 0.6 10^3/uL (0.1-1.4); ABSOLUTE NEUT (AUTO) 6.3 10^3/uL (1.7-8.2); BASOPHILS % (AUTO) 0.7 % (0-2); EOSINOPHILS % (AUTO) 1.2 % (0-6); HEMATOCRIT 41.6 % (37.9-51.0); HEMOGLOBIN 14.1 g/dL (13.5-17.0); HGB HCT DIFFERENCE 0.7; LYMPHOCYTES % (AUTO) 28.5 % (13-45); MEAN CORPUSCULAR HEMOGLOBIN 30.7 pg (27.0-33.4); MEAN CORPUSCULAR HGB CONC 33.8 g/dL (32.0-36.0); MEAN CORPUSCULAR VOLUME 91 fl (80-97); MONOCYTES % (AUTO) 5.8 % (3-13); RED BLOOD COUNT 4.57 10^6/uL (4.35-5.55); RED CELL DISTRIBUTION WIDTH 15.8 % (11.5-14.0); SEGMENTED NEUTROPHILS % (AUTO) 63.8 % (42-78); WHITE BLOOD COUNT 9.8 10^3/uL (4.0-10.5)
[2016-12-15 13:16] LABS: PARTIAL THROMBOPLASTIN TIME 44.1 SEC (23.5-35.8)
[2016-12-15 13:19] LABS: APPEARANCE,URINE CLEAR; BILIRUBIN,URINE NEGATIVE (NEGATIVE); GLUCOSE, URINE NEGATIVE (NEGATIVE); KETONES,URINE NEGATIVE (NEGATIVE); LEUKOCYTE ESTERASE,URINE NEGATIVE (NEGATIVE); NITRITE,URINE NEGATIVE (NEGATIVE); PROTEIN,URINE NEGATIVE (NEGATIVE); URINE SPECIFIC GRAVITY 1.005; UROBILINOGEN,URINE NEGATIVE mg/dL (<2.0)
--- NOTE | 2016-12-15 13:19 | RADIOLOGY REPORT (SQ) ---
EXAM DESCRIPTION: CT HEAD WITHOUT COMPLETED DATE/TIME: 12/15/2016 12:58 pm REASON FOR STUDY: 19, Headache, lightheadedness; on coumadin COMPARISON: 07/07/2016 TECHNIQUE: Axial images acquired through the brain without intravenous contrast. Images reviewed wi th bone, brain and subdural windows. Images stored on PACS. All CT scanners at this facility use dose modulation, iterative reconstruction, and/or weight based d osing when appropriate to reduce radiation dose to as low as reasonably achievable (ALARA). [facility]: Dose Right [facility]: CareDose [facility]: Dose Right [facility]: Teradose 4D [facility]: Smart [employer] RADIATION DOSE: Up-to-date CT equipment and radiation dose reduction techniques were employed. CTDIv ol: 64.6 mGy. DLP: 1163 mGy-cm. mGy. LIMITATIONS: None. FINDINGS: VENTRICLES: Normal size and contour. CEREBRUM: No masses. No hemorrhage. No midline shift. No evidence for acute infarction. Normal gra y/white matter differentiation. No areas of low density in the white matter. CEREBELLUM: No masses. No hemorrhage. No alteration of density. No evidence for acute infarction. EXTRAAXIAL SPACES: No fluid collections. No masses. ORBITS AND GLOBE: No intra- or extraconal masses. Normal contour of globe without masses. CALVARIUM: No fracture. PARANASAL SINUSES: No fluid or mucosal thickening. SOFT TISSUES: No mass or hematoma. OTHER: No other significant finding. IMPRESSION: NO ACUTE INTRACRANIAL IMAGING FINDINGS. EVIDENCE OF ACUTE STROKE: NO. COMMENT: Quality ID # [id number]: Final reports with documentation of one or more dose reduction techniques (e.g., Automated exposure control, adjustment of the mA and/or kV according to patient size, use of iterative reconstruction technique) TECHNICAL DOCUMENTATION: JOB ID: [id number] [employer]- All Rights Reserved
[2016-12-15 13:25] LABS: ALANINE AMINOTRANSFERASE 30 U/L (21-72); ALBUMIN 4.1 g/dL (3.5-5.0); ALKALINE PHOSPHATASE 157 U/L (38-126); ANION GAP 10 (5-19); ASPARTATE AMINO TRANSFERASE 28 U/L (17-59); BILIRUBIN,DIRECT 0.4 mg/dL (0.0-0.4); BILIRUBIN,TOTAL 0.6 mg/dL (0.2-1.3); BLOOD UREA NITROGEN 19 mg/dL (7-20); CALCIUM 9.4 mg/dL (8.4-10.2); CARBON DIOXIDE 30 mmol/L (22-30); CHLORIDE 100 mmol/L (98-107); CREATININE RESULT 0.83 mg/dL (0.52-1.25); GLUCOSE 94 mg/dL (75-110); POTASSIUM 4.6 mmol/L (3.6-5.0); SODIUM 140.1 mmol/L (137-145); TOTAL PROTEIN 6.6 g/dL (6.3-8.2)
[2016-12-15] MEDS ORDERED: ACETAMINOPHEN 325 MG TABLET PO ONE (13:48)
[2016-12-15] MEDS ORDERED: NORMAL SALINE 1000 ML 1,000 ML IV ONE (17:08)
[2016-12-15 17:54] VITALS: BP 150/69
--- NOTE | 2016-12-15 19:28 | EKG REPORT ---
SEVERITY:- ABNORMAL ECG - SINUS RHYTHM RIGHT BUNDLE BRANCH BLOCK : Confirmed by: Maldonado Alfaro MD 15-Dec-2016 19:27:08
== END 2016-12-15 18:14 | disposition home or self-care (01) ==
LOC: ER 11:23
DX: R19.7 Diarrhea, unspecified (principal); R42 Dizziness and giddiness; R51 Headache; I25.10 Atherosclerotic heart disease of native coronary artery without angina pectoris; I10 Essential (primary) hypertension; E11.9 Type 2 diabetes mellitus without complications; I45.10 Unspecified right bundle-branch block; I48.91 Unspecified atrial fibrillation; Z79.01 Long term (current) use of anticoagulants; Z88.4 Allergy status to anesthetic agent; Z88.8 Allergy status to other drugs, medicaments and biological substances; Z95.5 Presence of coronary angioplasty implant and graft
CPT/HCPCS: 93005; 99285; 86900; 86901; 36415; 86850; 85025; 85610; 85730; 82272; 80053; 81001; 84484; 70450; 93010; A9270; J7030

== ENCOUNTER → 2017-01-13 | Outpatient (CLI) | payer MEDICARE, OTHER ==
[2017-01-13 13:02] LABS: PROTHROMBIN TIME 23.2 SEC (11.4-15.4)
== END ==
LOC: OD 11:49
PROVIDERS: ATTEND Internal Medicine
DX: Z79.01 Long term (current) use of anticoagulants (principal)
CPT/HCPCS: 36415; 85610

== ENCOUNTER → 2017-01-26 | Outpatient (CLI) | payer MEDICARE, OTHER ==
--- NOTE | 2017-01-26 11:50 | RADIOLOGY REPORT (SQ) ---
EXAM DESCRIPTION: CT CHEST WITHOUT COMPLETED DATE/TIME: 01/26/2017 8:05 am REASON FOR STUDY: BRONCHIECTASIS (J47.9) J47.9 BRONCHIECTASIS, UNCOMPLICATED COMPARISON: 05/14/2016 TECHNIQUE: CT scan performed of the chest without intravenous contrast. Images reviewed with lung, soft tissue and bone windows. Reconstructed coronal and sagittal MPR images reviewed. All images st ored on PACS. All CT scanners at this facility use dose modulation, iterative reconstruction, and/or weight based d osing when appropriate to reduce radiation dose to as low as reasonably achievable (ALARA). [facility]: Dose Right [facility]: CareDose [facility]: Dose Right [facility]: Teradose 4D [facility]: [employer] RADIATION DOSE: Up-to-date CT equipment and radiation dose reduction techniques were employed. CTDIv ol: 8.7 mGy. DLP: 340 mGy-cm. mGy. LIMITATIONS: No technical limitations. FINDINGS: LUNGS AND PLEURA: Relatively stable areas subsegmental bronchiectasis in the medial right lower lobe. No effusions. No worrisome lung nodules. HILAR AND MEDIASTINAL STRUCTURES: No identified masses or abnormal nodes. No obvious aneurysm. HEART AND VASCULAR STRUCTURES: 4.1 cm diameter ascending thoracic aorta. UPPER ABDOMEN: Small hiatal hernia. Renal cysts. THYROID AND OTHER SOFT TISSUES: No masses. No adenopathy. BONES: No acute findings. HARDWARE: None in the chest. OTHER: No other significant findings. IMPRESSION: Stable bronchiectasis right lower lobe. TECHNICAL DOCUMENTATION: JOB ID: [id number] Quality ID # [id number]: Final reports with documentation of one or more dose reduction techniques (e.g., Au tomated exposure control, adjustment of the mA and/or kV according to patient size, use of iterative reconstruction technique) 2010 [employer]- All Rights Reserved
== END ==
LOC: RAD 07:53
PROVIDERS: ATTEND Internal Medicine Pulmonary Disease
DX: J47.9 Bronchiectasis, uncomplicated (principal)
CPT/HCPCS: 71250

== ENCOUNTER 2017-02-09 10:32 | Emergency (ER) | payer MEDICARE, OTHER ==
[2017-02-09] MEDS ORDERED: NORMAL SALINE 1000 ML 1,000 ML IV ONE (11:01)
--- NOTE | 2017-02-09 11:02 | ER Document Report ---
ED Medical Screen (RME) - General Chief Complaint: Vomiting Stated Complaint: VOMITING Time Seen by Provider: 02/09/17 11:01 Notes: Patient has a history of esophageal cancer that was treated with chemotherapy and radiation. No surgery was done but a feeding tube was in place. This was approximately 2 years ago. Patient states he has had no problems until today when he began to have intractable vomiting and diarrhea. He states he feels very weak and lightheaded. TRAVEL OUTSIDE OF THE [place] IN LAST 30 DAYS: No - Related Data Allergies/Adverse Reactions: alfuzosin [Alfuzosin] Allergy (Unknown, Verified 12/15/16 13:03) procaine HCl [From Novocain] Allergy (Unknown, Verified 12/15/16 13:03) Past Medical History - Social History Family history: Reviewed & Not Pertinent - Past Medical History Cardiac Medical History: Reports: Hx Atrial Fibrillation, Hx Coronary Artery Disease, Hx Hypercholesterolemia, Hx Hypertension Denies: Hx Heart Murmur Pulmonary Medical History: Denies: Hx Tuberculosis Neurological Medical History: Denies: Hx Seizures Endocrine Medical History: Reports: Hx Diabetes Mellitus Type 2 - Diet and exercise controlled Renal/ Medical History: Reports: Hx Kidney Stones. Denies: Hx Peritoneal Dialysis GI Medical History: Reports: Hx Diverticulitis, Hx Gastroesophageal Reflux Disease, Hx Hiatal Hernia Musculoskeltal Medical History: Reports Hx Arthritis - all joints Psychiatric Medical History: Denies: Hx Depression Traumatic Medical History: Reports: Hx Fractures - Arm Past Surgical History: Reports: Hx Appendectomy, Hx Bowel Surgery - peg tube removal, Hx Cardiac Catheterization, Hx Cardiac Surgery - 2 stents, Hx Coronary Stent - x2, Hx Orthopedic Surgery - right knee replacement - Immunizations Hx Diphtheria, Pertussis, Tetanus Vaccination: Yes Physical Exam - Vital signs Vitals: Temp Pulse Resp BP Pulse Ox 98.2 F 140 H 24 H 116/73 98 02/09/17 10:40 02/09/17 10:40 02/09/17 10:40 02/09/17 10:40 02/09/17 10:40 Course - Vital Signs Vital signs: Temp Pulse Resp BP Pulse Ox 98.2 F 140 H 24 H 116/83 98 02/09/17 10:42 02/09/17 10:42 02/09/17 10:42 02/09/17 10:42 02/09/17 10:42
[2017-02-09] MEDS ORDERED: ONDANSETRON HCL INJ/PF 4 MG/2 ML SDV IV ONE ×2 (11:37→18:09)
[2017-02-09 11:40] LABS: ABSOLUTE LYMPHOCYTES (AUTO) 1.9 10^3/uL (0.5-4.7); ABSOLUTE MONOCYTES (AUTO) 0.3 10^3/uL (0.1-1.4); ABSOLUTE NEUT (AUTO) 13.3 10^3/uL (1.7-8.2); BASOPHILS % (AUTO) 0.3 % (0-2); HEMATOCRIT 47.2 % (37.9-51.0); HEMOGLOBIN 15.8 g/dL (13.5-17.0); HGB HCT DIFFERENCE 0.2; MEAN CORPUSCULAR HEMOGLOBIN 30.1 pg (27.0-33.4); MEAN CORPUSCULAR HGB CONC 33.4 g/dL (32.0-36.0); MEAN CORPUSCULAR VOLUME 90 fl (80-97); MONOCYTES % (AUTO) 2.2 % (3-13); RED BLOOD COUNT 5.23 10^6/uL (4.35-5.55); RED CELL DISTRIBUTION WIDTH 15.9 % (11.5-14.0); SEGMENTED NEUTROPHILS % (AUTO) 85.5 % (42-78); WHITE BLOOD COUNT 15.5 10^3/uL (4.0-10.5)
[2017-02-09] MEDS ORDERED: RINGERS SOLUTION,LACTATED 1,000 ML IV ONE ×2 (11:40→14:34)
[2017-02-09 12:05] LABS: ALANINE AMINOTRANSFERASE 41 U/L (21-72); ALKALINE PHOSPHATASE 176 U/L (38-126); ASPARTATE AMINO TRANSFERASE 32 U/L (17-59); BILIRUBIN,DIRECT 0.4 mg/dL (0.0-0.4); BLOOD UREA NITROGEN 34 mg/dL (7-20); CALCIUM 9.4 mg/dL (8.4-10.2); CHLORIDE 100 mmol/L (98-107); CREATININE RESULT 0.99 mg/dL (0.52-1.25); GLUCOSE 177 mg/dL (75-110); PROTHROMBIN TIME 18.7 SEC (11.4-15.4); TOTAL PROTEIN 7.7 g/dL (6.3-8.2)
[2017-02-09 12:12] LABS: CARBON DIOXIDE 25 mmol/L (22-30); POTASSIUM 4.5 mmol/L (3.6-5.0); SODIUM 143.5 mmol/L (137-145)
[2017-02-09 12:15] LABS: ANION GAP 19 (5-19)
--- NOTE | 2017-02-09 14:16 | EKG REPORT ---
SEVERITY:- ABNORMAL ECG - SINUS TACHYCARDIA AND APCs RBBB AND LAFB : Confirmed by: Vince Howell 09-Feb-2017 14:15:36
--- NOTE | 2017-02-09 14:33 | ER Document Report ---
ED GI/ - General Chief Complaint: Vomiting Stated Complaint: VOMITING Time Seen by Provider: 02/09/17 11:01 Notes: Patient has been having vomiting and diarrhea and abdominal pain since last night after dinner. He ate taco stew for supper which was eaten by 12 other individuals and none of them are sick. Yesterday for lunch, patient had a bologna sandwich, which was also written by another individual who did not get sick. Patient does not know of anything else that he is eaten in the last day or 2 they could have caused his symptoms. He says that after supper, he began vomiting and vomited every 15 minutes until about 5 AM this morning. About 4 AM , patient began having diarrhea and had 3 or 4 such stools. Did not note any blood in his stools, but did note some dark color to his vomitus. He went to his local physician's office and was advised to come here for evaluation and care. He still feels nauseated. Lost control of his last bowel movement. Does not currently have any abdominal pains. Patient has had his gallbladder removed and had a feeding tube after that for a while but that has now been removed. Also has had his appendix removed. Patient has a history of esophageal cancer for which he was treated with chemo and radiation years ago and is considered cancer free. Patient is in atrial fibrillation on Coumadin. TRAVEL OUTSIDE OF THE [place] IN LAST 30 DAYS: No - Related Data Allergies/Adverse Reactions: alfuzosin [Alfuzosin] Allergy (Unknown, Verified 02/09/17 12:15) procaine HCl [From Novocain] Allergy (Unknown, Verified 02/09/17 12:15) Past Medical History - Social History Smoking Status: Never Smoker Chew tobacco use (# tins/day): No Frequency of alcohol use: Rare Drug Abuse: None Family History: Reviewed & Not Pertinent, CAD, Hyperlipidemia, Hypertension Patient has suicidal ideation: No Patient has homicidal ideation: No - Past Medical History Cardiac Medical History: Reports: Hx Atrial Fibrillation, Hx Coronary Artery Disease, Hx Hypercholesterolemia, Hx Hypertension Pulmonary Medical History: Neurological Medical History: Denies: Hx Cerebrovascular Accident Endocrine Medical History: Reports: Hx Diabetes Mellitus Type 2 - Diet and exercise controlled Renal/ Medical History: Reports: Hx Kidney Stones GI Medical History: Reports: Hx Diverticulitis, Hx Gastroesophageal Reflux Disease, Hx Hiatal Hernia Musculoskeltal Medical History: Reports Hx Arthritis - all joints Traumatic Medical History: Reports: Hx Fractures - Arm Past Surgical History: Reports: Hx Appendectomy, Hx Bowel Surgery - peg tube removal, Hx Cardiac Catheterization, Hx Cardiac Surgery - 2 stents, Hx Cholecystectomy, Hx Coronary Stent - x2, Hx Orthopedic Surgery - right knee replacement - Immunizations Hx Diphtheria, Pertussis, Tetanus Vaccination: Yes Hx Pneumococcal Vaccination: 12/28/16 Review of Systems - Review of Systems Notes: REVIEW OF SYSTEMS: CONSTITUTIONAL : Denies fever. EENT: Denies eye, ear, nose or mouth or throat pain or other symptoms. CARDIOVASCULAR: Denies chest pain. RESPIRATORY: Denies cough, chest congestion, or shortness of breath. GASTROINTESTINAL: See HPI. GENITOURINARY: Has some urinary difficulties attributed to his prostate. Denies painful urinating, urinary frequency, blood in urine. MUSCULOSKELETAL: Denies back or neck pain. Denies joint pain or swelling. SKIN: Denies rash or skin lesions. NEUROLOGICAL: Denies LOC or altered mental status. Denies headache. Denies sensory loss or motor deficits. ALL OTHER SYSTEMS REVIEWED AND NEGATIVE. Physical Exam - Vital signs Vitals: Temp Pulse Resp BP Pulse Ox 98.2 F 140 H 24 H 116/73 98 02/09/17 10:40 02/09/17 10:40 02/09/17 10:40 02/09/17 10:40 02/09/17 10:40 Interpretation: Tachycardic - Heart rate recorded at 140 at triage. I question this result as throughout the entire remaining stay in the ED, the patient never had a heart rate above about 113., Other - Notes Notes: PHYSICAL EXAMINATION: GENERAL: Well-appearing, in no acute distress. Has soiled his underwear and pants. See my observation of his heart rate of 140, which I question. HEAD: Atraumatic, normocephalic. EYES: Pupils equal round and reactive to light, extraocular movements intact. ENT: oropharynx clear without exudates. Moist mucous membranes. NECK: Normal range of motion, supple. LUNGS: Breath sounds clear and equal bilaterally. HEART: Regular rate and rhythm without murmurs. Heart rate about 110 by me at bedside. ABDOMEN: Soft, nontender. No guarding or rebound. No masses felt. No bruits heard. BACK: No tenderness throughout entire back. EXTREMITIES: Normal range of motion without pain. NEUROLOGICAL: Normal speech, normal gait. Normal sensory, motor, and reflex exams. Awake, alert, and oriented x3. Cranial nerves normal. SKIN: Warm, dry, no rashes. Course - Re-evaluation Re-evalutation: 02/09/17 14:32 Patient sleeping at this time. Says he is feeling better. Nausea is decreased. No abdominal pains. Has not produced urine yet so I am going to give him a third liter of IV fluid. 02/09/17 18:29 Patient still is improved. Does have a slight bit of nausea and second dose of Zofran is given IV. Patient does not have any abdominal pain at this time. His CT scan does not show anything acute or serious. Spoke with Juany Miller MD, patient's primary care provider and we agree patient is suitable for discharge and follow-up as an outpatient as needed. He said he is available to see the patient tomorrow or the next day in his office. I have informed the patient of this plan and that I am also available here in the emergency department tomorrow if he has continuing symptoms. 02/09/17 19:21 Juany Miller MD was made aware of patient's INR of 1.47 and he said he will adjust that as an outpatient. - Vital Signs Vital signs: Temp Pulse Resp BP Pulse Ox 98.7 F 140 H 18 113/58 L 99 02/09/17 18:41 02/09/17 10:42 02/09/17 18:41 02/09/17 18:41 02/09/17 18:41 - Laboratory Result Diagrams: 02/09/17 11:15 02/09/17 11:15 Laboratory results interpreted by me: 02/09/17 02/09/17 02/09/17 11:15 11:15 11:15 WBC 15.5 H RDW 15.9 H Seg Neutrophils % 85.5 H Lymphocytes % 12.0 L Monocytes % 2.2 L Absolute Neutrophils 13.3 H PT 18.7 H BUN 34 H Glucose 177 H Alkaline Phosphatase 176 H Lipase 22.0 L - Diagnostic Test Radiology reviewed: Image reviewed, Reports reviewed - CT of abdomen and pelvis with IV contrast only shows no acute abnormality. - EKG Interpretation by Me Rate: Tachycardia - Mild Rhythm: Arrthymia - Sinus arrhythmia. History of atrial fib [place]/QRS: RBBB Discharge - Discharge Clinical Impression: Vomiting and diarrhea Condition: Stable Disposition: HOME, SELF-CARE Additional Instructions: VOMITING: Vomiting (or nausea without vomiting) can be caused by many other different problems. It can mean that something's wrong with the stomach, such as ulcers or inflammation or the intestinal tract, such as appendicitis. But it can also be a symptom of a problem that has nothing to do with the stomach or intestines. Vomiting is common with severe headaches, earaches, tonsillitis, and kidney infections, etc. We see it with pneumonia or heart attacks. Drugs can cause nausea and vomiting. Many abdominal problems cause vomiting; for example, gallstones, kidney stones, pancreatitis, and intestinal obstruction ( blocked bowels). In most cases, curing the vomiting depends on fixing the problem that caused it. For temporary relief, we may use an anti-nausea medicine. For home use, we can prescribe suppositories, chewable pills, pills that dissolve in the mouth, or liquid anti-nausea drugs. If the vomiting seems to be caused by a problem in the stomach, acid-suppressing drugs may be prescribed as well. It's important to avoid dehydration. Sip small amounts of clear liquids ( soft drinks, tea, broth, etc) . Try to take fluids frequently even if you are vomiting to prevent dehydration. Take increasing amounts of fluid and when liquids are being consumed successfully, advance to small amounts of bland food (toast, soups, mashed potatoes, etc.) until you are able to resume a regular diet. Avoid aspirin, tobacco, and alcohol. If the vomiting worsens, if the problem that's making you vomit worsens, or if there's evidence of bleeding in the stomach (such as black, tarry stool, or bloody or black vomit), you should return immediately. Also, return if abdominal pain worsens or becomes localized to one area or you develop high fever. Call your doctor if you aren't improved in 24 hours. DIARRHEA, NON-SPECIFIC: Diarrhea means frequent, watery stools. There are many causes. Any problem that keeps the intestinal tract from absorbing water from the stool can lead to diarrhea. A sudden new diarrhea problem is usually caused by a virus, food sensitivity, toxic bacteria, or drugs. In this case, we expect the problem to go away soon. Testing is done only if you seem seriously ill from the diarrhea. If you have chronic diarrhea, or diarrhea that keeps coming back, we need to find out why. Chronic diarrhea can be due to inflammation of the bowels such as Crohn's disease or ulcerative colitis, food sensitivity such as intolerance to lactose or wheat protein, irritable bowel syndrome, and other problems. If your diarrhea is a significant problem but it's not clear why you have it, we' ll refer you to a specialist for further testing. During an episode of diarrhea, drink small amounts (two to six ounces) of clear liquids (soft drinks, sport drinks, herb teas, broth, etc). Take fluids frequently to prevent dehydration. It's usually not a problem to take mild anti- diarrhea medication such as Kaopectate or Pepto-Bismol. As the diarrhea eases, advance to small amounts of bland food (mashed potato, toast) for 24 hours. Call the physician if blood appears in your vomit or stool, if vomiting lasts longer than 24 hours, if the abdominal pain worsens or becomes localized to one area, if you develop high fever, or if you become lightheaded and weak. VIRAL SYNDROME: The physician has diagnosed a likely viral infection. Viruses not only cause "colds," but can cause many different symptoms including generalized aching, fever, headache, cough, diarrhea, nausea, vomiting, and fatigue. The treatment, for the most part, is simply relief of symptoms. This means that antibiotics are usually not given. Rest, fluids, pain medications and, occasionally, medication for the specific symptoms that are most bothersome will be prescribed. Use good handwashing to avoid passing the virus to others. Shared toys should be cleaned with disinfectant. Clean the toilets, sinks, and counter surfaces in bathrooms. Launder clothing in hot water. Contact the physician if you develop any new or unusual symptoms such as severe headache, stiff neck, high fever, chest pain, productive cough, or shortness of breath. You should be rechecked if you don't see marked improvement within seven to 10 days. Food Poisoning Your symptoms could also be due to food poisoning. This cause would seem unusual given that no one else who ate the same foods as you have become sick or ill with these symptoms. Food poisoning is due to bacterial poisons in food. It occurs when bacteria (usually staph) get into food, then have time to grow before the food is eaten. Symptoms usually begin about an hour after the contaminated food is eaten -- typically abdominal cramps, vomiting, and diarrhea. Refrigeration of food usually prevents food poisoning. Food poisoning usually resolves within a few hours without treatment. The bowel should be rested: nothing by mouth for about four hours, then frequent sips of clear liquids for another six to eight hours. Further treatment may be required for severe or prolonged vomiting, dehydration, or severe abdominal cramping. Call the doctor or come back if symptoms do not resolve within 24 hours, or if you worsen in any way -- for example you develop worsening pain, high fever, or blood in the stools. INTRAVENOUS (I V) FLUIDS: As part of your care today, you received intravenous (IV) fluids. IV fluids are administered to patients who are dehydrated or to those who have certain chemical (electrolyte) abnormalities that need correcting. ANTINAUSEA MEDICATION: You have been given a medication to suppress nausea and vomiting. This type of medication can be given as a shot, pill, or suppository. It will usually last for many hours. Pills and shots usually last six to eight hours. For the typical illness, only one or two doses of the medication may be necessary. Mild lightheadedness may occur. This type of medicine can cause drowsiness. Do not drive or operate dangerous machinery while under its influence. Do not mix with alcohol. See your doctor at once if you have muscle spasms or tightness, or uncontrollable motions (particularly of the neck, mouth, or jaw). Persistent vomiting or severe lightheadedness should also be evaluated by the physician. FOLLOW-UP CARE: If you have been referred to a physician for follow-up care, call the physician s office for an appointment as you were instructed or within the next two days. If you experience worsening or a significant change in your symptoms, notify the physician immediately or return to the Emergency Department at any time for re-evaluation. Prescriptions: Promethazine HCl [Phenergan 25 mg Supp.rect] 1 - 2 supp MT Q4HP PRN #[id number] supp.rect PRN Reason: Referrals: JUANY MILLER MD [Primary Care Provider] - Follow up as needed
[2017-02-09 15:57] LABS: APPEARANCE,URINE SLIGHTLY-CLOUDY; BILIRUBIN,URINE NEGATIVE (NEGATIVE); GLUCOSE, URINE NEGATIVE (NEGATIVE); KETONES,URINE NEGATIVE (NEGATIVE); LEUKOCYTE ESTERASE,URINE NEGATIVE (NEGATIVE); NITRITE,URINE NEGATIVE (NEGATIVE); PROTEIN,URINE NEGATIVE (NEGATIVE); URINE SPECIFIC GRAVITY 1.018; UROBILINOGEN,URINE NEGATIVE mg/dL (<2.0)
--- NOTE | 2017-02-09 17:53 | RADIOLOGY REPORT (SQ) ---
EXAM DESCRIPTION: CT ABD/PELVIS WITH IV ONLY COMPLETED DATE/TIME: 02/09/2017 5:36 pm REASON FOR STUDY: Abdominal pain with vomiting and diarrhea COMPARISON: 2014 TECHNIQUE: CT scan of the abdomen and pelvis performed using helical scanning technique with dynamic intravenous contrast injection. No oral contrast. Images reviewed with lung, soft tissue, and bone windows. Reconstructed coronal and sagittal MPR images reviewed. Delayed images for evaluation of the urinary system also acquired. All images stored on PACS. All CT scanners at this facility use dose modulation, iterative reconstruction, and/or weight based d osing when appropriate to reduce radiation dose to as low as reasonably achievable (ALARA). [facility]: Dose Right [facility]: CareDose [facility]: Dose Right [facility]: Teradose 4D [facility]: Treater CONTRAST TYPE AND DOSE: contrast/concentration: Isovue 370.00 mg/ml; Total Contrast Delivered: 81.0 ml; Total Saline Delivered: 68.0 ml RENAL FUNCTION: GFR > 60. RADIATION DOSE: Up-to-date CT equipment and radiation dose reduction techniques were employed. CTDIv ol: 8.8 - 12.4 mGy. DLP: 1189 mGy-cm.. LIMITATIONS: None. FINDINGS: LOWER CHEST: Minimal right pleural effusion. Flattening hiatal hernia. LIVER: Normal size. No masses. No dilated ducts. SPLEEN: Normal size. No focal lesions. PANCREAS: No masses. No significant calcifications. No adjacent inflammation or peripancreatic fluid collections. Pancreatic duct not dilated. GALLBLADDER: Surgically absent. ADRENAL GLANDS: No significant masses or asymmetry. RIGHT KIDNEY AND URETER: No solid masses. No significant calcifications. No hydronephrosis or hyd roureter. LEFT KIDNEY AND URETER: No solid masses. No significant calcifications. No hydronephrosis or hydr oureter. AORTA AND VESSELS: No aneurysm. No dissection. Renal arteries, SMA, celiac without stenosis. RETROPERITONEUM: No retroperitoneal adenopathy, hemorrhage or masses. BOWEL AND PERITONEAL CAVITY: No masses or inflammatory changes. No free fluid or peritoneal masses. APPENDIX: Surgically absent. PELVIS: No mass. No free fluid. Normal bladder. ABDOMINAL WALL: No masses. No hernias. BONES: No significant or acute findings. OTHER: No other significant finding. IMPRESSION: NO SIGNIFICANT OR ACUTE FINDING IN THE ABDOMEN OR PELVIS ON CT SCAN WITH IV CONTRAST. TECHNICAL DOCUMENTATION: JOB ID: [id number] Quality ID # [id number]: Final reports with documentation of one or more dose reduction techniques (e.g., Au tomated exposure control, adjustment of the mA and/or kV according to patient size, use of iterative reconstruction technique) 2010 [employer]- All Rights Reserved
[2017-02-09 18:50] VITALS: BP 113/58
== END 2017-02-09 18:50 | disposition home or self-care (01) ==
LOC: ER 10:32
DX: R11.10 Vomiting, unspecified (principal); R19.7 Diarrhea, unspecified; I48.91 Unspecified atrial fibrillation; I25.10 Atherosclerotic heart disease of native coronary artery without angina pectoris; E78.00 Pure hypercholesterolemia, unspecified; I10 Essential (primary) hypertension; E11.9 Type 2 diabetes mellitus without complications; Z90.49 Acquired absence of other specified parts of digestive tract; Z85.01 Personal history of malignant neoplasm of esophagus; Z79.02 Long term (current) use of antithrombotics/antiplatelets; Z87.442 Personal history of urinary calculi; Z96.651 Presence of right artificial knee joint
CPT/HCPCS: 93005; 96376; 99284; 96361; 96375; 96365; 36415; 87040; 83690; 85025; 85610; 82271; 80053; 81001; 84484; 74177; 93010; J2405; J7030; J7120

== ENCOUNTER → 2017-03-04 | Outpatient (CLI) | payer MEDICARE, OTHER ==
[2017-03-04 14:51] LABS: PROTHROMBIN TIME 21.7 SEC (11.4-15.4)
== END ==
LOC: OD 13:40
PROVIDERS: ATTEND Internal Medicine
DX: Z51.81 Encounter for therapeutic drug level monitoring (principal); Z79.01 Long term (current) use of anticoagulants
CPT/HCPCS: 36415; 85610

== ENCOUNTER → 2017-03-16 | Outpatient (CLI) | payer MEDICARE, OTHER ==
[2017-03-16 10:56] LABS: PROTHROMBIN TIME 31.8 SEC (11.4-15.4)
== END ==
LOC: OD 09:27
PROVIDERS: ATTEND Internal Medicine
DX: Z51.81 Encounter for therapeutic drug level monitoring (principal); Z79.01 Long term (current) use of anticoagulants
CPT/HCPCS: 36415; 85610

== ENCOUNTER → 2017-04-07 | Outpatient (CLI) | payer MEDICARE, OTHER ==
[2017-04-07 10:19] LABS: INTERNATIONAL RATION (INR) 3.03; PROTHROMBIN TIME 32.8 SEC (11.4-15.4)
== END ==
LOC: OD 08:39
PROVIDERS: ATTEND Internal Medicine
DX: Z51.81 Encounter for therapeutic drug level monitoring (principal); Z79.01 Long term (current) use of anticoagulants
CPT/HCPCS: 36415; 85610

== ENCOUNTER → 2017-04-23 | Outpatient (CLI) | payer MEDICARE, OTHER ==
[2017-04-23 13:03] LABS: INTERNATIONAL RATION (INR) 2.11; PROTHROMBIN TIME 24.8 SEC (11.4-15.4)
== END ==
LOC: OD 12:28
PROVIDERS: ATTEND Internal Medicine
DX: Z51.81 Encounter for therapeutic drug level monitoring (principal); Z79.01 Long term (current) use of anticoagulants
CPT/HCPCS: 36415; 85610

== ENCOUNTER → 2017-04-27 | Outpatient (CLI) | payer MEDICARE, OTHER ==
--- NOTE | 2017-04-27 11:05 | RADIOLOGY REPORT (SQ) ---
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 Images reviewed with lung, soft tissue and bone windows. Reconstructed coronal and sagittal MPR images reviewed. All images st ored on PACS. All CT scanners at this facility use dose modulation, iterative reconstruction, and/or weight based d osing when appropriate to reduce radiation dose to as low as reasonably achievable (ALARA). [facility]: Dose Right [facility]: CareDose [facility]: Dose Right [facility]: Teradose 4D [facility]: Smart [employer] RADIATION DOSE: CT Rad equipment meets quality standard of care and radiation dose reduction techniq ues were employed. CTDIvol: 8.4 mGy. DLP: 312 mGy-cm. mGy. LIMITATIONS: No technical limitations. FINDINGS: LUNGS AND PLEURA: No suspicious nodules. Subsegmental bronchiectasis medial right lower l obe. No effusions. HILAR AND MEDIASTINAL STRUCTURES: Stable subcentimeter mediastinal nodes. HEART AND VASCULAR STRUCTURES: No aneurysm. No pericardial effusion. UPPER ABDOMEN: No significant findings. Limited exam. THYROID AND OTHER SOFT TISSUES: No masses. No adenopathy. BONES: No significant finding. HARDWARE: None in the chest. OTHER: No other significant findings. IMPRESSION: No evidence of metastatic disease. No significant change. TECHNICAL DOCUMENTATION: JOB ID: [id number] Quality ID # [id number]: Final reports with documentation of one or more dose reduction techniques (e.g., Au tomated exposure control, adjustment of the mA and/or kV according to patient size, use of iterative reconstruction technique) 2010 [employer]- All Rights Reserved
== END ==
LOC: RAD 07:57
PROVIDERS: ATTEND Internal Medicine
DX: C15.5 Malignant neoplasm of lower third of esophagus (principal)
CPT/HCPCS: 71250

== ENCOUNTER → 2017-05-26 | Outpatient (CLI) | payer MEDICARE, OTHER ==
[2017-05-26 16:03] LABS: INTERNATIONAL RATION (INR) 1.66; PROTHROMBIN TIME 20.6 SEC (11.4-15.4)
== END ==
LOC: OD 14:56
PROVIDERS: ATTEND Internal Medicine
DX: Z51.81 Encounter for therapeutic drug level monitoring (principal); Z79.01 Long term (current) use of anticoagulants
CPT/HCPCS: 36415; 85610

== ENCOUNTER → 2017-05-27 | Outpatient (CLI) | payer MEDICARE, OTHER ==
--- NOTE | 2017-05-27 12:11 | RADIOLOGY REPORT (SQ) ---
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 TECHNIQUE: Dynamic and static lan scale and color images acquired of the right leg venous system. S elected spectral images acquired with additional compression and augmentation maneuvers. The contrala teral common femoral vein and saphenofemoral junction were also imaged. Images stored on PACS. LIMITATIONS: None. FINDINGS: COMMON FEMORAL: Normal phasicity, compression and augmentation. No visualized echogenic ma terial on lan scale. No defects on color images. FEMORAL: Normal compression and augmentation. No visualized echogenic material on lan scale. No defe cts on color images. POPLITEAL: Normal compression, augmentation. No visualized echogenic material on lan scale. No defec ts on color images. CALF VESSELS: Normal compression, augmentation. No visualized echogenic material on lan scale. No de fects on color images. GSV and SSV: Normal compression, augmentation. No visualized echogenic material on lan scale. No def ects on color images. ANY DEEP VENOUS INSUFFICIENCY: Not evaluated. ANY EVIDENCE OF POPLITEAL CYST: No. OTHER: No other significant finding. CONTRALATERAL COMMON FEMORAL VEIN AND SAPHENOFEMORAL JUNCTION: Normal phasicity, compression and augmentation. No visualized echogenic material on lan scale. No de fects on color images. IMPRESSION: NO EVIDENCE DVT OR SVT IN THE RIGHT LEG. TECHNICAL DOCUMENTATION: JOB ID: [id number] 1941 [employer]- All Rights Reserved Reading location - IP/workstation name: [email or web address]
== END ==
LOC: SP 10:56
PROVIDERS: ATTEND Internal Medicine
DX: I82.591 Chronic embolism and thrombosis of other specified deep vein of right lower extremity (principal); M79.661 Pain in right lower leg
CPT/HCPCS: 93971

== ENCOUNTER → 2017-06-03 | Outpatient (CLI) | payer MEDICARE, OTHER ==
[2017-06-03 12:11] LABS: INTERNATIONAL RATION (INR) 2.01; PROTHROMBIN TIME 23.8 SEC (11.4-15.4)
== END ==
LOC: OD 11:16
PROVIDERS: ATTEND Internal Medicine
DX: Z51.81 Encounter for therapeutic drug level monitoring (principal); Z79.01 Long term (current) use of anticoagulants
CPT/HCPCS: 36415; 85610

== ENCOUNTER → 2017-08-03 | Outpatient (CLI) | payer MEDICARE, OTHER ==
[2017-08-03 13:42] LABS: INTERNATIONAL RATION (INR) 1.43; PROTHROMBIN TIME 18.1 SEC (11.4-15.4)
== END ==
LOC: OD 12:11
PROVIDERS: ATTEND Internal Medicine
DX: Z51.81 Encounter for therapeutic drug level monitoring (principal); Z79.01 Long term (current) use of anticoagulants
CPT/HCPCS: 36415; 85610

== ENCOUNTER → 2017-08-10 | Outpatient (CLI) | payer MEDICARE, OTHER ==
[2017-08-10 15:37] LABS: INTERNATIONAL RATION (INR) 1.56; PROTHROMBIN TIME 19.4 SEC (11.4-15.4)
== END ==
LOC: OD 14:54
PROVIDERS: ATTEND Internal Medicine
DX: I48.0 Paroxysmal atrial fibrillation (principal); Z79.01 Long term (current) use of anticoagulants
CPT/HCPCS: 36415; 85610

== ENCOUNTER → 2017-08-25 | Outpatient (CLI) | payer MEDICARE, OTHER ==
[2017-08-25 12:17] LABS: PROTHROMBIN TIME 22.3 SEC (11.4-15.4)
[2017-08-25 12:18] LABS: INTERNATIONAL RATION (INR) 1.86
== END ==
LOC: OD 11:17
PROVIDERS: ATTEND Internal Medicine
DX: I48.0 Paroxysmal atrial fibrillation (principal); Z79.01 Long term (current) use of anticoagulants
CPT/HCPCS: 36415; 85610

== ENCOUNTER → 2017-08-31 | Outpatient (CLI) | payer MEDICARE, OTHER ==
[2017-08-31 14:18] LABS: INTERNATIONAL RATION (INR) 1.62
== END ==
LOC: OD 12:38
PROVIDERS: ATTEND Internal Medicine
DX: Z51.81 Encounter for therapeutic drug level monitoring (principal); Z79.01 Long term (current) use of anticoagulants
CPT/HCPCS: 36415; 85610

== ENCOUNTER → 2017-09-03 | Outpatient (CLI) | payer MEDICARE, OTHER ==
[2017-09-03 18:01] LABS: INTERNATIONAL RATION (INR) 1.78; PROTHROMBIN TIME 21.6 SEC (11.4-15.4)
== END ==
LOC: OD 16:34
PROVIDERS: ATTEND Internal Medicine
DX: Z79.01 Long term (current) use of anticoagulants (principal)
CPT/HCPCS: 36415; 85610

== ENCOUNTER → 2017-09-16 | Outpatient (CLI) | payer MEDICARE, OTHER ==
[2017-09-16 12:36] LABS: INTERNATIONAL RATION (INR) 2.64; PROTHROMBIN TIME 29.4 SEC (11.4-15.4)
== END ==
LOC: OD 11:23
PROVIDERS: ATTEND Internal Medicine
DX: Z79.01 Long term (current) use of anticoagulants (principal)
CPT/HCPCS: 36415; 85610

== ENCOUNTER → 2017-10-01 | Outpatient (CLI) | payer MEDICARE, OTHER ==
[2017-10-01 11:41] LABS: INTERNATIONAL RATION (INR) 2.43; PROTHROMBIN TIME 27.5 SEC (11.4-15.4)
== END ==
LOC: OD 11:01
PROVIDERS: ATTEND Internal Medicine
DX: Z51.81 Encounter for therapeutic drug level monitoring (principal); Z79.01 Long term (current) use of anticoagulants
CPT/HCPCS: 36415; 85610

== ENCOUNTER → 2017-10-15 | Outpatient (CLI) | payer MEDICARE, OTHER ==
[2017-10-15 13:19] LABS: INTERNATIONAL RATION (INR) 2.12; PROTHROMBIN TIME 24.8 SEC (11.4-15.4)
== END ==
LOC: OD 11:48
PROVIDERS: ATTEND Internal Medicine
DX: I48.0 Paroxysmal atrial fibrillation (principal); Z79.01 Long term (current) use of anticoagulants
CPT/HCPCS: 36415; 85610

== ENCOUNTER → 2017-11-10 | Outpatient (CLI) | payer MEDICARE, OTHER ==
[2017-11-10 17:57] LABS: INTERNATIONAL RATION (INR) 1.77; PROTHROMBIN TIME 21.4 SEC (11.4-15.4)
== END ==
LOC: OD 16:37
PROVIDERS: ATTEND Internal Medicine
DX: Z79.01 Long term (current) use of anticoagulants (principal); I48.0 Paroxysmal atrial fibrillation
CPT/HCPCS: 36415; 85610

== ENCOUNTER → 2017-11-18 | Outpatient (CLI) | payer MEDICARE, OTHER ==
[2017-11-18 15:33] LABS: INTERNATIONAL RATION (INR) 2.23; PROTHROMBIN TIME 25.8 SEC (11.4-15.4)
== END ==
LOC: OD 14:03
PROVIDERS: ATTEND Internal Medicine
DX: I48.0 Paroxysmal atrial fibrillation (principal); Z79.01 Long term (current) use of anticoagulants
CPT/HCPCS: 36415; 85610

== ENCOUNTER → 2017-11-24 | Outpatient (CLI) | payer MEDICARE, OTHER ==
[2017-11-24 11:16] LABS: INTERNATIONAL RATION (INR) 2.23; PROTHROMBIN TIME 25.7 SEC (11.4-15.4)
== END ==
LOC: OD 10:02
PROVIDERS: ATTEND Internal Medicine
DX: I48.0 Paroxysmal atrial fibrillation (principal); Z79.01 Long term (current) use of anticoagulants
CPT/HCPCS: 36415; 85610

== ENCOUNTER → 2017-12-02 | Outpatient (CLI) | payer MEDICARE, OTHER ==
[2017-12-02 09:24] LABS: INTERNATIONAL RATION (INR) 2.45; PROTHROMBIN TIME 27.7 SEC (11.4-15.4)
== END ==
LOC: OD 07:46
PROVIDERS: ATTEND Internal Medicine
DX: I48.0 Paroxysmal atrial fibrillation (principal); Z79.01 Long term (current) use of anticoagulants
CPT/HCPCS: 36415; 85610

== ENCOUNTER → 2017-12-21 | Outpatient (CLI) | payer MEDICARE, OTHER ==
[2017-12-21 10:48] LABS: INTERNATIONAL RATION (INR) 1.79; PROTHROMBIN TIME 21.7 SEC (11.4-15.4)
== END ==
LOC: OD 10:04
PROVIDERS: ATTEND Internal Medicine
DX: I48.0 Paroxysmal atrial fibrillation (principal); Z79.01 Long term (current) use of anticoagulants
CPT/HCPCS: 36415; 85610

== ENCOUNTER → 2018-01-04 | Outpatient (CLI) | payer MEDICARE, OTHER ==
[2018-01-04 15:38] LABS: PROTHROMBIN TIME 28.2 SEC (11.4-15.4)
== END ==
LOC: OD 14:59
PROVIDERS: ATTEND Internal Medicine
DX: I48.0 Paroxysmal atrial fibrillation (principal); Z79.01 Long term (current) use of anticoagulants
CPT/HCPCS: 36415; 85610

== ENCOUNTER → 2018-02-02 | Outpatient (CLI) | payer MEDICARE, OTHER ==
[2018-02-02 12:41] LABS: INTERNATIONAL RATION (INR) 2.09; PROTHROMBIN TIME 24.5 SEC (11.4-15.4)
== END ==
LOC: OD 11:50
PROVIDERS: ATTEND Internal Medicine
DX: I48.0 Paroxysmal atrial fibrillation (principal); Z79.01 Long term (current) use of anticoagulants
CPT/HCPCS: 36415; 85610

== ENCOUNTER → 2018-03-04 | Outpatient (CLI) | payer MEDICARE, OTHER ==
[2018-03-04 14:42] LABS: INTERNATIONAL RATION (INR) 1.42; PROTHROMBIN TIME 18.1 SEC (11.4-15.4)
== END ==
LOC: OD 13:33
PROVIDERS: ATTEND Internal Medicine
DX: I48.0 Paroxysmal atrial fibrillation (principal); Z79.01 Long term (current) use of anticoagulants
CPT/HCPCS: 36415; 85610

== ENCOUNTER → 2018-03-11 | Outpatient (CLI) | payer MEDICARE, OTHER ==
[2018-03-11 13:40] LABS: INTERNATIONAL RATION (INR) 2.11; PROTHROMBIN TIME 24.7 SEC (11.4-15.4)
== END ==
LOC: OD 12:53
PROVIDERS: ATTEND Internal Medicine
DX: I48.0 Paroxysmal atrial fibrillation (principal); Z79.01 Long term (current) use of anticoagulants
CPT/HCPCS: 36415; 85610

== ENCOUNTER → 2018-04-05 | Outpatient (CLI) | payer MEDICARE, OTHER ==
[2018-04-05 11:50] LABS: INTERNATIONAL RATION (INR) 2.48
== END ==
LOC: OD 10:01
PROVIDERS: ATTEND Internal Medicine
DX: I48.0 Paroxysmal atrial fibrillation (principal); Z79.01 Long term (current) use of anticoagulants
CPT/HCPCS: 36415; 85610

== ENCOUNTER → 2018-04-12 | Outpatient (CLI) | payer MEDICARE, OTHER ==
--- NOTE | 2018-04-12 10:16 | RADIOLOGY REPORT (SQ) ---
EXAM DESCRIPTION: CT CHEST WITHOUT COMPLETED DATE/TIME: 04/12/2018 8:18 am REASON FOR STUDY: MAL DAVID OF LOWER THIRD OF ESOPHAGUS C15.5 MALIGNANT NEOPLASM OF LOWER THIRD OF ES OPHAGUS COMPARISON: PET-CT 02/23/2015, 08/19/2015 CT chest 03/28/2016, 03/13/2017, 01/26/2017, 04/27/2017 TECHNIQUE: CT scan performed of the chest without intravenous contrast. Images reviewed with lung, soft tissue and bone windows. Reconstructed coronal and sagittal MPR images reviewed. All images st ored on PACS. All CT scanners at this facility use dose modulation, iterative reconstruction, and/or weight based d osing when appropriate to reduce radiation dose to as low as reasonably achievable (ALARA). [facility]: Dose Right [facility]: CareDose [facility]: Dose Right [facility]: Teradose 4D [facility]: [facility] RADIATION DOSE: CT Rad equipment meets quality standard of care and radiation dose reduction techniq ues were employed. CTDIvol: 9.4 mGy. DLP: 339 mGy-cm. mGy. LIMITATIONS: No technical limitations. FINDINGS: LUNGS AND PLEURA: No acute infiltrates. No worrisome pulmonary nodules. No pleural effus ion or pneumothorax. Stable chronic bronchiectasis in the medial right lower lobe. HILAR AND MEDIASTINAL STRUCTURES: No worrisome mediastinal adenopathy. No gross distal esophageal ma ss. Small hiatal hernia. HEART AND VASCULAR STRUCTURES: Mild cardiomegaly with heavily calcified [place] coronary arteries, aor tic valve and mitral annulus. No pericardial effusion UPPER ABDOMEN: Post cholecystectomy. Bilateral renal cortical cysts. THYROID AND OTHER SOFT TISSUES: No masses. No adenopathy. BONES: No significant finding. HARDWARE: None in the chest. OTHER: No other significant findings. IMPRESSION: Stable appearance of the chest compared to previous exams TECHNICAL DOCUMENTATION: JOB ID: [id number] Quality ID # [id number]: Final reports with documentation of one or more dose reduction techniques (e.g., Au tomated exposure control, adjustment of the mA and/or kV according to patient size, use of iterative reconstruction technique) 2010 [employer]- All Rights Reserved Reading location - IP/workstation name: [facility]
== END ==
LOC: RAD 08:08
PROVIDERS: ATTEND Internal Medicine
DX: C15.5 Malignant neoplasm of lower third of esophagus (principal)
CPT/HCPCS: 71250

== ENCOUNTER → 2018-05-28 | Outpatient (CLI) | payer MEDICARE, OTHER ==
[2018-05-28 12:00] LABS: INTERNATIONAL RATION (INR) 1.18; PROTHROMBIN TIME 15.6 SEC (11.4-15.4)
== END ==
LOC: OD 11:15
PROVIDERS: ATTEND Internal Medicine
DX: I48.0 Paroxysmal atrial fibrillation (principal); Z79.01 Long term (current) use of anticoagulants
CPT/HCPCS: 36415; 85610

== ENCOUNTER → 2018-06-07 | Outpatient (CLI) | payer MEDICARE, OTHER ==
[2018-06-07 16:31] LABS: INTERNATIONAL RATION (INR) 2.01; PROTHROMBIN TIME 23.8 SEC (11.4-15.4)
== END ==
LOC: OD 15:21
PROVIDERS: ATTEND Internal Medicine
DX: Z79.01 Long term (current) use of anticoagulants (principal); I48.0 Paroxysmal atrial fibrillation
CPT/HCPCS: 36415; 85610

== ENCOUNTER → 2018-06-22 | Outpatient (CLI) | payer MEDICARE, OTHER ==
[2018-06-22 14:01] LABS: PROTHROMBIN TIME 23.6 SEC (11.4-15.4)
== END ==
LOC: OD 12:41
PROVIDERS: ATTEND Internal Medicine
DX: I48.0 Paroxysmal atrial fibrillation (principal); Z79.01 Long term (current) use of anticoagulants
CPT/HCPCS: 36415; 85610

== ENCOUNTER 2018-07-11 09:27 | Emergency (ER) | payer MEDICARE, OTHER ==
--- NOTE | 2018-07-11 09:52 | ER Document Report ---
ED Medical Screen (RME) - General Chief Complaint: Knee Pain Stated Complaint: KNEE PAIN Time Seen by Provider: 07/11/18 09:44 Primary Care Provider: JUANY MILLER MD [Primary Care Provider] - Follow up as needed Mode of Arrival: Wheelchair Information source: Patient Notes: Patient is an 83-year-old male with past medical history of right knee replacement over 10 years ago who presents to the emergency department with right knee pain. He states yesterday he was moving some furniture when he started feeling knee pain. He states later in the day as he was walking his knee gave out and he fell to the ground. Patient denies any other injuries other than his knee. Patient reports he is also concerned for a blood clot. Patient has no history of blood clots and patient is taking Coumadin. X-ray orders will be placed. I told patient to discuss his concerns with for blood clot with the provider that sees him in the main ED. Exam: Swelling noted to right knee. Normal dorsalis pedis pulse. I have greeted and performed a rapid initial assessment of this patient. A comprehensive ED assessment and evaluation of the patient, analysis of test results and completion of the medical decision making process will be conducted by additional ED providers. Dictation of this chart was performed using voice recognition software; therefore, there may be some unintended grammatical errors. TRAVEL OUTSIDE OF THE [place] IN LAST 30 DAYS: No - Related Data Allergies/Adverse Reactions: alfuzosin [Alfuzosin] Allergy (Unknown, Verified 02/09/17 12:15) procaine HCl [From Novocain] Allergy (Unknown, Verified 02/09/17 12:15) Past Medical History - Social History Family history: Reviewed & Not Pertinent - Past Medical History Cardiac Medical History: Reports: Hx Atrial Fibrillation, Hx Coronary Artery Disease, Hx Hypercholesterolemia, Hx Hypertension Denies: Hx Heart Murmur Pulmonary Medical History: Denies: Hx Tuberculosis Neurological Medical History: Denies: Hx Cerebrovascular Accident, Hx Seizures Endocrine Medical History: Reports: Hx Diabetes Mellitus Type 2 - Diet and exercise controlled Renal/ Medical History: Reports: Hx Kidney Stones. Denies: Hx Peritoneal Dialysis GI Medical History: Reports: Hx Diverticulitis, Hx Gastroesophageal Reflux Disease, Hx Hiatal Hernia Musculoskeltal Medical History: Reports Hx Arthritis - all joints Psychiatric Medical History: Denies: Hx Depression Traumatic Medical History: Reports: Hx Fractures - Arm Past Surgical History: Reports: Hx Appendectomy, Hx Bowel Surgery - peg tube removal, Hx Cardiac Catheterization, Hx Cardiac Surgery - 2 stents, Hx Cholecystectomy, Hx Coronary Stent - x2, Hx Orthopedic Surgery - right knee replacement - Immunizations Hx Diphtheria, Pertussis, Tetanus Vaccination: Yes History of Influenza Vaccine for 12/2016 - 05/2017 Season: No Physical Exam - Vital signs Vitals: Temp Pulse Resp BP Pulse Ox 97.9 F 83 16 129/63 H 97 07/11/18 09:31 07/11/18 09:31 07/11/18 09:31 07/11/18 09:31 07/11/18 09:31 Course - Vital Signs Vital signs: Temp Pulse Resp BP Pulse Ox 97.9 F 83 16 129/63 H 97 07/11/18 09:31 07/11/18 09:31 07/11/18 09:31 07/11/18 09:31 07/11/18 09:31 Doctor's Discharge - Discharge Referrals: JUANY MILLER MD [Primary Care Provider] - Follow up as needed
--- NOTE | 2018-07-11 10:16 | RADIOLOGY REPORT (SQ) ---
EXAM DESCRIPTION: KNEE RIGHT 4 VIEWS COMPLETED DATE/TIME: 07/11/2018 9:59 am REASON FOR STUDY: right knee pain s/p fall COMPARISON: 2012. NUMBER OF VIEWS: Four views right knee. LIMITATIONS: None. FINDINGS: Generalized osteopenia. Arthroplasty looks intact. No fracture or worrisome bone lesion. Small joint effusion. Vascular calcifications regionally. OTHER: No other significant finding. IMPRESSION: 1. Osteopenia. 2. Arthroplasty intact. No fracture. 3. Joint effusion. TECHNICAL DOCUMENTATION: JOB ID: [id number] Reading location - IP/workstation name: [email or web address]
--- NOTE | 2018-07-11 10:31 | ER Document Report ---
ED Extremity Problem, Lower - General Chief Complaint: Knee Pain Stated Complaint: KNEE PAIN Time Seen by Provider: 07/11/18 09:44 Primary Care Provider: JUANY MILLER MD [Primary Care Provider] - Follow up as needed Mode of Arrival: Wheelchair TRAVEL OUTSIDE OF THE [place] IN LAST 30 DAYS: No - HPI Notes: Patient is a 83-year-old male that presents to the emergency department for chief complaint of right knee pain. Patient began having pain in his right knee yesterday evening after moving furniture. Family states he was pushing furniture with his hands and knee against to the side. He denies any direct trauma or injury. He states later yesterday evening he had his knee "give out" on him. He did fall to the ground but denies landing directly on his knee. He denied any head injury or loss of consciousness during the fall. He has been able to ambulate with his walker but it causes increased in pain. He has not taken medication at home for pain. He denies associated fevers and chills. Patient is currently on Coumadin but also expresses concern there may be a blood clot because his leg appears swollen. Denies any associated chest pain, palpitations and shortness of breath. He states he has been compliant on his Coumadin. Past Medical History: Reviewed in chart Past Surgical History: Right knee replacement Social History: Nice tobacco and alcohol use Family History: Reviewed and noncontributory for presenting illness Allergies: Reviewed, see documented allergy list. REVIEW OF SYSTEMS: CONSTITUTIONAL : No fever No chills No diaphoresis No recent illness EENT: No vision changes No congestion No sore throat CARDIOVASCULAR: No chest pain No palpitations RESPIRATORY: No shortness of breath No cough No difficulty breathing GASTROINTESTINAL: No abdominal pain No nausea No vomiting No diarrhea GENITOURINARY: No dysuria No hematuria No difficulty urinating MUSCULOSKELETAL: No back pain leg pain No arm pain SKIN: No rashes No lesions LYMPHATIC: No swollen, enlarged glands. NEUROLOGICAL: No lightheadedness No headache No weakness No paresthesias PSYCHIATRIC: No anxiety No depression PHYSICAL EXAMINATION: Vital signs reviewed, nursing noted reviewed. GENERAL: Well-appearing, well-nourished and in no acute distress. HEAD: Atraumatic, normocephalic. EYES: Eyes appear normal, extraocular movements intact, sclera anicteric, conjunctiva are normal. ENT: nares patent, oropharynx clear without exudates. Moist mucous membranes. NECK: Normal range of motion, supple without lymphadenopathy LUNGS: Breath sounds clear to auscultation bilaterally and equal. No wheezes rales or rhonchi. HEART: Regular rate and rhythm without murmurs ABDOMEN: Soft, nontender, normoactive bowel sounds. No rebound, guarding, or rigidity. No masses appreciated. EXTREMITIES: Right knee effusion and medial joint line tenderness with no joint laxity, mild decreased range of motion in flexion. No joint erythema or Richar. Negative Homans sign bilaterally. No peripheral edema bilaterally. NEUROLOGICAL: No focal neurological deficits. Moves all extremities spontan eously Motor and sensory grossly intact on exam. PSYCH: Normal mood, normal affect. SKIN: Warm, Dry, normal turgor, no rashes or lesions noted on exposed skin - Related Data Allergies/Adverse Reactions: alfuzosin [Alfuzosin] Allergy (Unknown, Verified 02/09/17 12:15) procaine HCl [From Novocain] Allergy (Unknown, Verified 02/09/17 12:15) Past Medical History - General Information source: Patient - Social History Smoking Status: Never Smoker Family History: Reviewed & Not Pertinent, CAD, Hyperlipidemia, Hypertension Patient has suicidal ideation: No Patient has homicidal ideation: No - Past Medical History Cardiac Medical History: Reports: Hx Atrial Fibrillation, Hx Coronary Artery Disease, Hx Hypercholesterolemia, Hx Hypertension Denies: Hx Heart Murmur Pulmonary Medical History: Denies: Hx Tuberculosis Neurological Medical History: Denies: Hx Cerebrovascular Accident, Hx Seizures Endocrine Medical History: Reports: Hx Diabetes Mellitus Type 2 - Diet and exercise controlled Renal/ Medical History: Reports: Hx Kidney Stones. Denies: Hx Peritoneal Dialysis GI Medical History: Reports: Hx Diverticulitis, Hx Gastroesophageal Reflux Disease, Hx Hiatal Hernia Musculoskeletal Medical History: Reports Hx Arthritis - all joints Psychiatric Medical History: Denies: Hx Depression Traumatic Medical History: Reports: Hx Fractures - Arm Past Surgical History: Reports: Hx Appendectomy, Hx Bowel Surgery - peg tube removal, Hx Cardiac Catheterization, Hx Cardiac Surgery - 2 stents, Hx Ch olecystectomy, Hx Coronary Stent - x2, Hx Orthopedic Surgery - right knee replacement - Immunizations Hx Diphtheria, Pertussis, Tetanus Vaccination: Yes Hx Pneumococcal Vaccination: 12/28/16 Physical Exam - Vital signs Vitals: Temp Pulse Resp BP Pulse Ox 97.9 F 83 16 129/63 H 97 07/11/18 09:31 07/11/18 09:31 07/11/18 09:31 07/11/18 09:31 07/11/18 09:31 Course - Re-evaluation Re-evalutation: 07/11/18 10:49 Vitals reviewed. Nursing notes reviewed. Patient is afebrile and nontoxic in appearance. He was given Tylenol for pain. X-ray shows right knee effusion with no bony injury. Patient does not appear to have any infectious etiology to the effusion in his right knee. An Heriberto wrap was placed for compression and he was counseled on ice and elevation. He will continue to use his walker and was told to rest the knee. He is following with Dr. Dawn and was encouraged to see him in the office in the next few days for reevaluation. He was counseled on symptoms of infection and told to return to the emergency room. Patient was asking about DVT however he has no edema outside of his right knee effusion and is already on Coumadin. I have no clinical suspicion currently for DVT and he has no symptoms of PE. I did offer ultrasound however he states that he feels confident knowing that the effusion is localized in his knee that he does not have a blood clot in his leg. He is in agreement with all plans of care and stable at discharge. Knee X-Ray 07/11/18 09:50 IMPRESSION: 1. Osteopenia. 2. Arthroplasty intact. No fracture. 3. Joint effusion. - Vital Signs Vital signs: Temp Pulse Resp BP Pulse Ox 97.9 F 83 16 129/63 H 97 07/11/18 09:31 07/11/18 09:31 07/11/18 09:31 07/11/18 09:31 07/11/18 09:31 Discharge - Discharge Clinical Impression: Effusion, right knee Right knee pain Qualifiers: Chronicity: acute Qualified Code(s): M25.561 - Pain in right knee Condition: Stable Disposition: HOME, SELF-CARE Instructions: Ice & Elevation ([facility]), Knee Effusion ([facility]) Additional Instructions: Please return to the emergency department if you have any worsening, or concern of your symptoms. Please return to the emergency department if you develop chest pain, difficulty breathing, severe abdominal pain, or ongoing vomiting. Please follow-up with your primary care physician in 2-3 days and any other recommended physicians. If prescribed, take all medications as directed. If you have any questions or concerns do not hesitate to return the emergency department for evaluation. Ice your affected knee 2-3 times daily for 15-20 minutes at a time. Call Dr. Dawn in the morning to arrange follow-up in the next few days Return to the emergency room if you have increased redness, swelling, pain or fevers Referrals: JUANY MILLER MD [Primary Care Provider] - Follow up as needed RANCHO DWAN MD [ACTIVE STAFF] - Follow up in 3-5 days
[2018-07-11] MEDS ORDERED: ACETAMINOPHEN 325 MG TABLET PO ONE (10:43)
[2018-07-11 11:35] VITALS: BP 126/62
== END 2018-07-11 11:00 | disposition home or self-care (01) ==
LOC: ER 09:27
DX: M25.561 Pain in right knee (principal); M25.461 Effusion, right knee; M85.861 Other specified disorders of bone density and structure, right lower leg; Z96.651 Presence of right artificial knee joint; E11.9 Type 2 diabetes mellitus without complications; I25.10 Atherosclerotic heart disease of native coronary artery without angina pectoris; I10 Essential (primary) hypertension; I48.91 Unspecified atrial fibrillation; Z79.01 Long term (current) use of anticoagulants; Z88.4 Allergy status to anesthetic agent; Z88.8 Allergy status to other drugs, medicaments and biological substances; Z95.5 Presence of coronary angioplasty implant and graft
CPT/HCPCS: 99283; 73564; A9270

== ENCOUNTER → 2018-07-21 | Outpatient (CLI) | payer MEDICARE, OTHER ==
[2018-07-21 10:34] LABS: INTERNATIONAL RATION (INR) 1.38; PROTHROMBIN TIME 17.7 SEC (11.4-15.4)
== END ==
LOC: OD 09:22
PROVIDERS: ATTEND Internal Medicine
DX: I48.0 Paroxysmal atrial fibrillation (principal); Z79.01 Long term (current) use of anticoagulants
CPT/HCPCS: 36415; 85610

== ENCOUNTER → 2018-07-29 | Outpatient (CLI) | payer MEDICARE, OTHER ==
[2018-07-29 13:20] LABS: INTERNATIONAL RATION (INR) 2.38; PROTHROMBIN TIME 27.1 SEC (11.4-15.4)
== END ==
LOC: OD 12:17
PROVIDERS: ATTEND Internal Medicine
DX: Z79.01 Long term (current) use of anticoagulants (principal); I48.0 Paroxysmal atrial fibrillation
CPT/HCPCS: 36415; 85610

== ENCOUNTER → 2018-08-04 | Outpatient (CLI) | payer MEDICARE, OTHER ==
[2018-08-04 12:28] LABS: INTERNATIONAL RATION (INR) 3.23; PROTHROMBIN TIME 34.5 SEC (11.4-15.4)
== END ==
LOC: OD 11:31
PROVIDERS: ATTEND Internal Medicine
DX: I48.0 Paroxysmal atrial fibrillation (principal); Z79.01 Long term (current) use of anticoagulants
CPT/HCPCS: 36415; 85610

== ENCOUNTER → 2018-08-18 | Outpatient (CLI) | payer MEDICARE, OTHER ==
[2018-08-18 11:12] LABS: INTERNATIONAL RATION (INR) 2.03; PROTHROMBIN TIME 23.9 SEC (11.4-15.4)
== END ==
LOC: OD 09:55
PROVIDERS: ATTEND Internal Medicine
DX: I48.0 Paroxysmal atrial fibrillation (principal); Z79.01 Long term (current) use of anticoagulants
CPT/HCPCS: 36415; 85610

== ENCOUNTER → 2018-09-08 | Outpatient (CLI) | payer MEDICARE, OTHER ==
[2018-09-08 16:20] LABS: INTERNATIONAL RATION (INR) 1.97; PROTHROMBIN TIME 23.4 SEC (11.4-15.4)
== END ==
LOC: OD 15:04
PROVIDERS: ATTEND Internal Medicine
DX: I48.0 Paroxysmal atrial fibrillation (principal); Z79.01 Long term (current) use of anticoagulants
CPT/HCPCS: 36415; 85610

== ENCOUNTER → 2018-09-22 | Outpatient (CLI) | payer MEDICARE, OTHER ==
[2018-09-22 14:41] LABS: INTERNATIONAL RATION (INR) 1.89
== END ==
LOC: OD 13:26
PROVIDERS: ATTEND Internal Medicine
DX: Z79.01 Long term (current) use of anticoagulants (principal); I48.0 Paroxysmal atrial fibrillation
CPT/HCPCS: 36415; 85610

== ENCOUNTER → 2018-09-29 | Outpatient (CLI) | payer MEDICARE, OTHER ==
[2018-09-29 08:24] LABS: INTERNATIONAL RATION (INR) 1.88; PROTHROMBIN TIME 21.9 SEC (11.4-15.4)
== END ==
LOC: OD 07:12
PROVIDERS: ATTEND Internal Medicine
DX: Z79.01 Long term (current) use of anticoagulants (principal); I48.0 Paroxysmal atrial fibrillation
CPT/HCPCS: 36415; 85610

== ENCOUNTER → 2018-10-05 | Outpatient (CLI) | payer MEDICARE, OTHER ==
[2018-10-05 13:25] LABS: INTERNATIONAL RATION (INR) 2.12; PROTHROMBIN TIME 24.1 SEC (11.4-15.4)
== END ==
LOC: OD 11:43
PROVIDERS: ATTEND Internal Medicine
DX: Z79.01 Long term (current) use of anticoagulants (principal); I48.0 Paroxysmal atrial fibrillation
CPT/HCPCS: 36415; 85610

== ENCOUNTER → 2018-10-25 | Outpatient (CLI) | payer MEDICARE, OTHER ==
[2018-10-25 12:06] LABS: INTERNATIONAL RATION (INR) 2.22
== END ==
LOC: OD 11:08
PROVIDERS: ATTEND Internal Medicine
DX: I48.0 Paroxysmal atrial fibrillation (principal); Z79.01 Long term (current) use of anticoagulants
CPT/HCPCS: 36415; 85610

== ENCOUNTER → 2018-11-15 | Outpatient (CLI) | payer MEDICARE, OTHER ==
--- NOTE | 2018-11-15 10:48 | RADIOLOGY REPORT (SQ) ---
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 No oral contrast. Images reviewed with lung, soft tissue, and bone windows. Reconstructed coronal and sagittal MPR images reviewed. Delayed images for evaluation of the urinary system also acquired. All images stored on PACS. All CT scanners at this facility use dose modulation, iterative reconstruction, and/or weight based d osing when appropriate to reduce radiation dose to as low as reasonably achievable (ALARA). [facility]: Dose Right [facility]: CareDose [facility]: Dose Right [facility]: Teradose 4D [facility]: Par[employer] CONTRAST TYPE AND DOSE: contrast/concentration: Isovue 350.00 mg/ml; Total Contrast Delivered: 93.0 ml; Total Saline Delivered: 71.0 ml RENAL FUNCTION: Creatinine 1 RADIATION DOSE: . LIMITATIONS: None. FINDINGS: LOWER CHEST: See separate report of the CT of the chest. LIVER: Normal size. No masses. No dilated ducts. SPLEEN: Normal size. No focal lesions. PANCREAS: No masses. No significant calcifications. No adjacent inflammation or peripancreatic fluid collections. Pancreatic duct not dilated. GALLBLADDER: Surgically absent. ADRENAL GLANDS: No significant masses or asymmetry. RIGHT KIDNEY AND URETER: No solid masses. There are 3 small cysts. No significant calcifications. No hydronephrosis or hydroureter. LEFT KIDNEY AND URETER: No solid masses. There are 4 small cysts. No significant calcifications. No hydronephrosis or hydroureter. AORTA AND VESSELS: No aneurysm. No dissection. Renal arteries, SMA, celiac without stenosis. RETROPERITONEUM: There is extensive mesenteric adenopathy. BOWEL AND PERITONEAL CAVITY: There are numerous sigmoid diverticula. There is no acute inflammation. No obvious bowel mass. APPENDIX: Surgically absent. PELVIS: No mass. No free fluid. Normal bladder. ABDOMINAL WALL: No masses. No hernias. BONES: No significant or acute findings. OTHER: No other significant finding. IMPRESSION: Extensive mesenteric adenopathy. No other significant findings in the abdomen or pelvis . TECHNICAL DOCUMENTATION: JOB ID: [id number] Quality ID # [id number]: Final reports with documentation of one or more dose reduction techniques (e.g., Au tomated exposure control, adjustment of the mA and/or kV according to patient size, use of iterative reconstruction technique) 2010 [employer]- All Rights Reserved Reading location - IP/workstation name: [email or web address]
--- NOTE | 2018-11-15 10:55 | RADIOLOGY REPORT (SQ) ---
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 Images reviewed with lung, soft tissue and bone windows. Reconstructed coronal and sagittal MPR and MIP images reviewed. All images stored on PACS. All CT scanners at this facility use dose modulation, iterative reconstruction, and/or weight based d osing when appropriate to reduce radiation dose to as low as reasonably achievable (ALARA). [facility]: Dose Right [facility]: CareDose [facility]: Dose Right [facility]: Teradose 4D [facility]: [employer] CONTRAST TYPE AND DOSE: 93 mL Omnipaque 350- low osmolar. RENAL FUNCTION: Creatinine 1 RADIATION DOSE: CT Rad equipment meets quality standard of care and radiation dose reduction techniq ues were employed. CTDIvol: 6.8 - 8.2 mGy. DLP: 1140 mGy-cm. . LIMITATIONS: None. FINDINGS: LUNGS AND PLEURA: Limited pulmonary fibrosis in the right lower lobe with honeycombing in the medial posterior aspect of the right lower lobe. No pulmonary nodules. No pleural effusion. HILAR AND MEDIASTINAL STRUCTURES: There are some nonspecific mediastinal nodes that are unchanged. HEART AND VASCULAR STRUCTURES: Coronary atherosclerosis. Aortic and mitral calcifications. HARDWARE: None in the chest. UPPER ABDOMEN: See separate report of the CT of the abdomen. THYROID AND OTHER SOFT TISSUES: No masses. No adenopathy. BONES: No significant finding. OTHER: No other significant finding. IMPRESSION: Limited pulmonary fibrosis. No thoracic metastases. Coronary atherosclerosis. Aortic and mitral calcifications. No significant interval change. TECHNICAL DOCUMENTATION: JOB ID: [id number] Quality ID # [id number]: Final reports with documentation of one or more dose reduction techniques (e.g., Au tomated exposure control, adjustment of the mA and/or kV according to patient size, use of iterative reconstruction technique) 2010 [employer]- All Rights Reserved Reading location - IP/workstation name: [email or web address]
== END ==
LOC: RAD 07:57
PROVIDERS: ATTEND Nurse Practitioner Family
DX: C15.5 Malignant neoplasm of lower third of esophagus (principal); J84.10 Pulmonary fibrosis, unspecified; I25.10 Atherosclerotic heart disease of native coronary artery without angina pectoris
CPT/HCPCS: 71260; 74177; 82565

== ENCOUNTER 2018-11-16 06:11 | Day surgery (SDC) | payer MEDICARE, OTHER ==
[2018-11-08 09:37] LABS: HEMATOCRIT 41.1 % (37.9-51.0); HEMOGLOBIN 13.9 g/dL (13.5-17.0); MEAN CORPUSCULAR HEMOGLOBIN 32.7 pg (27.0-33.4); MEAN CORPUSCULAR HGB CONC 33.8 g/dL (32.0-36.0); MEAN CORPUSCULAR VOLUME 97 fl (80-97); PLATELET COUNT 208 10^3/uL (150-450); RED BLOOD COUNT 4.25 10^6/uL (4.35-5.55); RED CELL DISTRIBUTION WIDTH 14.9 % (11.5-14.0); WHITE BLOOD COUNT 18.7 10^3/uL (4.0-10.5)
[2018-11-08 09:42] LABS: PROTHROMBIN TIME 23.9 SEC (11.4-15.4)
[2018-11-08 09:43] LABS: PARTIAL THROMBOPLASTIN TIME 40.9 SEC (23.5-35.8)
[2018-11-08 10:03] LABS: ANION GAP 10 (5-19); BLOOD UREA NITROGEN 25 mg/dL (7-20); CALCIUM 9.8 mg/dL (8.4-10.2); CARBON DIOXIDE 28 mmol/L (22-30); CHLORIDE 100 mmol/L (98-107); GLUCOSE 116 mg/dL (75-110); POTASSIUM 4.8 mmol/L (3.6-5.0)
--- NOTE | 2018-11-09 09:46 | EKG REPORT ---
SEVERITY:- ABNORMAL ECG - SINUS RHYTHM RBBB AND LAFB : Confirmed by: Vince Howell 09-Nov-2018 09:45:10
[~2018-11-16 06:11] MED LIST: CEFAZOLIN 1 GM/D5W RTU 1 GM/50 ML RTUPB IV ONE; CEFAZOLIN 1 GM/D5W RTU 1 GM/50 ML RTUPB IV PRN; LACTATED RINGERS 1000 ML IV PRN; LIDOCAINE 0.5% INJ-PF (5 MG/ML) 50 ML SDV SUBCUT PRN
[2018-11-16] MEDS ORDERED: ONDANSETRON HCL INJ/PF 4 MG/2 ML SDV ONE (06:26)
[2018-11-16] MEDS ORDERED: PROPOFOL INJ 200 MG/20 ML VIAL IV ONE (06:26)
[2018-11-16] MEDS ORDERED: MIDAZOLAM 2 MG/2 ML INJ ONE (06:26)
[2018-11-16] MEDS ORDERED: FENTANYL CITRATE INJ/PF 100 MCG/2 ML AMPUL ONE (06:26)
[2018-11-16] MEDS ORDERED: LIDOCAINE 0.5% INJ-PF (5 MG/ML) 50 ML SDV ONE ×2 (06:28→07:54)
[2018-11-16 07:23] LABS: INTERNATIONAL RATION (INR) 1.03; PROTHROMBIN TIME 13.5 SEC (11.4-15.4)
[2018-11-16 07:24] LABS: PARTIAL THROMBOPLASTIN TIME 32.8 SEC (23.5-35.8)
[2018-11-16] MEDS ORDERED: SODIUM BICARBONATE 4.2% INJ (2.5 MEQ/5 ML) VIAL ONE (07:50)
[2018-11-16] MEDS ORDERED: LIDOCAINE 1%/EPINEPHRINE INJ 20 ML VIAL ONE (07:50)
[2018-11-16] MEDS ORDERED: SODIUM BICARBONATE 8.4% INJ 50 MEQ/50 ML DISP.SYRIN ONE (07:54)
[2018-11-16] MEDS ORDERED: ONDANSETRON HCL INJ/PF 4 MG/2 ML SDV IV PRN (09:02)
[2018-11-16] MEDS ORDERED: MEPERIDINE HCL/PF INJ 25 MG/1 ML DISP.SYRIN IV PRN (09:02)
[2018-11-16] MEDS ORDERED: PROMETHAZINE HCL INJ 25 MG/1 ML VIAL IV PRN ×2 (09:02)
[2018-11-16] MEDS ORDERED: FENTANYL CITRATE INJ/PF 100 MCG/2 ML AMPUL IV PRN ×3 (09:02)
[2018-11-16] MEDS ORDERED: DIPHENHYDRAMINE HCL 50 MG/ML VIAL IV PRN (09:02)
--- NOTE | 2018-11-16 09:30 | Operative Report ---
Operative Report DATE OF SURGERY: 11/16/18 PREOPERATIVE DIAGNOSIS: Mass at the base of the left thumb POSTOPERATIVE DIAGNOSIS: Same OPERATION: Excision of mass from the left base of thumb SURGEON: BLAIRE SHARMA ANESTHESIA: Other - Joyce block TISSUE REMOVED OR ALTERED: Mass of the left base of thumb COMPLICATIONS: None ESTIMATED BLOOD LOSS: Minimal PROCEDURE: The patient was brought into the operating room after being marked. The patient was placed in a supine position. The patient was then prepped with a Betadine scrub and Betadine solution. A timeout was performed. The area for resection was outlined. A Joyce block had been instilled at the beginning of the case by anesthesia. An incision was then made through the skin into the subcutaneous tissue. Dissection was performed [id number] to encounter the mass. Once the mass was encountered a dissection was performed 360 in order to remove the mass Retraction was used to facilitate exposure. Dissection was performed through the subcutaneous fat and down onto the tendinous structures. The dissection was performed in the local area. [id number] the mass was dissected free of the surrounding tissue. Close examination using loupe magnification and high power lighting was used to try to see if there was a feeding stalk into the joint. I did not see any stalk but the mass was densely adherent onto the tendinous structures and had to be dissected off of the tendinous structures in order to be released. This was a deeply attached mass on the tendinous structures and we dissected through the area to make sure there was no stalk that was feeding from beneath the tendons to the joint that would cause a recurrence. With a deep dissection we found that there was no communication that can be seen to the joint. Great question was used so that we would not injure the tendons or the neurovascular bundle on that side. Throughout the case hemostasis was achieved with the bipolar and the areas that were suspect for possible bleeding once the tourniquet was released. Once the mass was completely dissected it was then removed. The area was washed with Betadine and sterile water solution. Hemostasis was confirmed as best as possible being at the patient did have a Rentchler block. The wound was cleaned with Betadine prior to the final closure. Tincture of benzoin and Steri-Strips with a light pressure dressing was applied with an Heriberto wrap. Patient was then reversed from anesthesia and taken to the [facility] for recovery. The approximate size of the mass was approximately 1.1 cm cm. This dictation was performed with dragon naturally speaking. If there are any inconsistencies or errors please contact the physician. Subjective: No complaints Objective: Vital signs stable afebrile No bleeding Dressing intact Assessment and plan: Doing well. Elevate the operative site. Resume medications. Take antibiotics for 1 day Follow-up Full instructions were given to the patient and family and they understand Portions of this note may be dictated using [employer] voice recognition software. Occasional variations and spelling and vocabulary could be possible and are unintentional. Additionally, there is a chance that some errors may not be caught or corrected. Please notify the offer of any discrepancies noted or if any statements are unclear.
--- NOTE | 2018-11-16 09:32 | Discharge Summary ---
Discharge Summary (SDC) - Discharge Final Diagnosis: Mass of the left base of thumb Date of Surgery: 11/16/18 Condition: Good Treatment or Instructions: Leave the top dressing on for 2 days, then removed. Leave the steri-strip tapes on for 5 days, then removal. Then cleaning wound with peroxide and apply Neosporin/bacitracin 3 times per day. Antibiotics for 1 day, then discontinue. Elevate operative area to decrease swelling. Do not strain, or lift heavy objects. Call for excessive bleeding, increased temperature of 101, uncontrolled pain, or excessive nausea or vomiting. You may reach Dr. Hsieh through his office at [phone]. In the event of an emergency after hours, then contact Dr. Hsieh through [facility]. Return to the office for a postop check on . The time will be scheduled by the nursing staff of [facility] prior to discharge. Please give the patient a copy of their labs and EKG so they can bring this to their PMD. Thank you Portions of this note may be dictated using [employer] voice recognition software. Occasional variations and spelling and vocabulary could be possible and are unintentional. Additionally, there is a chance that some errors may not be caught or corrected. Please notify the offer of any discrepancies noted or if any statements are unclear. Referrals: JUANY MILLER MD [Primary Care Provider] - Discharge Diet: As Tolerated Discharge Activity: No Lifting/Push/Pulling Report the Following to Your Physician Immediately: Unusual Bleeding - Keep hand elevated. Monitor capillary refill in the tips of the fingers. If the Heriberto gets too tight loosen it. If the Heriberto gets to loose then tightened it.
[2018-11-16 11:17] VITALS: BP 118/57
== END 2018-11-16 10:50 | disposition home or self-care (01) ==
LOC: OROUT 06:11
PROVIDERS: ATTEND Plastic Surgery
DX: L72.0 Epidermal cyst (principal); E11.9 Type 2 diabetes mellitus without complications; I11.9 Hypertensive heart disease without heart failure; I25.10 Atherosclerotic heart disease of native coronary artery without angina pectoris; R06.02 Shortness of breath; R01.1 Cardiac murmur, unspecified; M10.9 Gout, unspecified; Z79.82 Long term (current) use of aspirin; Z79.899 Other long term (current) drug therapy; Z79.01 Long term (current) use of anticoagulants; Z79.51 Long term (current) use of inhaled steroids
CPT/HCPCS: 93005; 36415 ×2; 82962; 85027; 85610 ×2; 85730 ×2; 80048; 88305 ×2; 93010; 01810; 26115; J2250; J0690; J3490 ×4; J2405; J2704; 1810; J3010

== ENCOUNTER → 2018-12-07 | Outpatient (CLI) | payer MEDICARE, OTHER ==
[2018-12-07 10:40] LABS: INTERNATIONAL RATION (INR) 1.63; PROTHROMBIN TIME 19.5 SEC (11.4-15.4)
== END ==
LOC: OD 09:40
PROVIDERS: ATTEND Internal Medicine
DX: I48.0 Paroxysmal atrial fibrillation (principal); Z79.01 Long term (current) use of anticoagulants
CPT/HCPCS: 36415; 85610

== ENCOUNTER → 2018-12-16 | Outpatient (CLI) | payer MEDICARE, OTHER ==
[2018-12-16 08:25] LABS: INTERNATIONAL RATION (INR) 2.12; PROTHROMBIN TIME 24.1 SEC (11.4-15.4)
== END ==
LOC: OD 07:17
PROVIDERS: ATTEND Internal Medicine
DX: I48.0 Paroxysmal atrial fibrillation (principal); Z79.01 Long term (current) use of anticoagulants
CPT/HCPCS: 36415; 85610

== ENCOUNTER → 2018-12-21 | Outpatient (CLI) | payer MEDICARE, OTHER ==
--- NOTE | 2018-12-22 10:34 | RADIOLOGY REPORT (SQ) ---
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 TECHNIQUE: Blood glucose level was verified. Above dose of FDG was injected intravenously. 2-D seg mented attenuation correction images were obtained from the base of the skull to the midthighs. Nonc ontrast CT images were obtained for attenuation correction and fusion with emission images. CT image s were performed without oral or intravenous contrast and are not sensitive for parenchymal lesions. A series of overlapping emission PET images were obtained. Images reviewed and manipulated at [facility] work station by the radiologist. Images stored on PACS. LIMITATIONS: None. FINDINGS: HEAD AND NECK: No areas of abnormal metabolic activity in the soft tissues of the head and neck. CHEST: No areas of abnormal metabolic activity in the chest. ABDOMEN AND PELVIS: Background liver activity max SUV 3.2. Again seen is the mesenteric adenopathy, not significantly changed from prior. There is no significant increased FDG uptake within the large mesenteric nodes. For reference the largest node within the left abdomen measures 1.7 cm in short ax is (series 3, image 171) (max SUV 1.7). No other areas of abnormal metabolic activity within the abd omen or pelvis. Expected physiologic activity within the gastrointestinal and genitourinary system. PROXIMAL LOWER EXTREMITIES/BONES: There is a focus of ill-defined increased activity within the right midshaft femur corresponding to ill-defined soft tissue density within the marrow (series 3, image 2 92) (max SUV 4.3). No other areas of abnormal metabolic activity in the soft tissues of the lower ex tremities. ADDITIONAL CT FINDINGS: Aortic atherosclerosis with dilation of the aortic arch measuring up to 4.3 c m. Enlarged heart with mitral annulus calcifications. Coronary atherosclerosis. Prior cholecystect funmi. Stable bilateral renal cyst. Mesenteric adenopathy and stranding as above and similar to prior CT. Aortoiliac atherosclerosis. Colonic diverticulosis. Partially visualized left hip hardware. OTHER: No other significant findings. IMPRESSION: 1. Persistent mesenteric adenopathy without significant increased FDG uptake (max SUV 1 .7) suggestive of lymphoproliferative disorder. 2. Ill-defined area of and increased activity within the right midshaft femur (max SUV 4.3) correspo nding to subtle soft tissue density as above. 3. No other foci of abnormal increased FDG uptake. 4. Additional chronic findings as above. TECHNICAL DOCUMENTATION: JOB ID: [id number] [employer]- All Rights Reserved Reading location - IP/workstation name: [email or web address]
== END ==
LOC: RAD 15:32
PROVIDERS: ATTEND Internal Medicine
DX: C15.5 Malignant neoplasm of lower third of esophagus (principal)
CPT/HCPCS: 78815; A9552

== ENCOUNTER → 2019-01-07 | Outpatient (CLI) | payer MEDICARE, OTHER ==
--- NOTE | 2019-01-07 12:50 | RADIOLOGY REPORT (SQ) ---
EXAM DESCRIPTION: NM WHOLE BODY BONE SCAN COMPLETED DATE/TIME: 01/07/2019 12:23 pm REASON FOR STUDY: MAL DAVID OF LOWER THIRD ESOPHAGUS C15.5 MALIGNANT NEOPLASM OF LOWER THIRD OF ESOPH AMARJIT COMPARISON: Whole-body PET-CT 12/21/2018 CT chest 04/12/2018. CT chest 11/15/2018. CT abdomen 11/16/19 19 RADIONUCLIDE AND DOSE: 20 millicuries Tc99m HDP. The route of agent administration: Intravenous. ADDITIONAL DRUGS AND DOSES: None. TECHNIQUE: Routine delayed images at 3 hours post radionuclide injection acquired of the bony skelet on including anterior and posterior whole-body projections and additional focused images as needed. LIMITATIONS: None. FINDINGS: BONES: Mild degenerative uptake is seen in the left knee. There is focal uptake in the an terior left 4th rib. There is focal uptake in the left mandible. KIDNEYS: Symmetric excretion without obstruction. OTHER: No other significant finding. IMPRESSION: The overall appearance of the scan does not suggest metastatic disease to bone. The upt david in the mandible may be secondary to dental disease. The uptake in the anterior rib may suggest c ostal chondritis. The uptake in the knee is likely degenerative. COMMENT: Quality measure 147: Current bone scan is compared with any available plain radiographs, p rior bone scans, and CT/MRI. TECHNICAL DOCUMENTATION: JOB ID: [id number]- All Rights Reserved Reading location - IP/workstation name: [email or web address]
== END ==
LOC: RAD 08:18
PROVIDERS: ATTEND Internal Medicine
DX: C15.5 Malignant neoplasm of lower third of esophagus (principal)
CPT/HCPCS: 78306; A9561; Q9969

== ENCOUNTER → 2019-01-11 | Outpatient (CLI) | payer MEDICARE, OTHER ==
[2019-01-11 12:12] LABS: INTERNATIONAL RATION (INR) 2.46; PROTHROMBIN TIME 27.1 SEC (11.4-15.4)
== END ==
LOC: OD 11:05
PROVIDERS: ATTEND Internal Medicine
DX: I48.0 Paroxysmal atrial fibrillation (principal); Z79.01 Long term (current) use of anticoagulants
CPT/HCPCS: 36415; 85610

== ENCOUNTER → 2019-02-14 | Outpatient (CLI) | payer MEDICARE, OTHER ==
[2019-02-14 12:33] LABS: INTERNATIONAL RATION (INR) 1.86; PROTHROMBIN TIME 21.7 SEC (11.4-15.4)
== END ==
LOC: OD 11:44
PROVIDERS: ATTEND Internal Medicine
DX: I48.0 Paroxysmal atrial fibrillation (principal); Z79.01 Long term (current) use of anticoagulants
CPT/HCPCS: 36415; 85610

== ENCOUNTER → 2019-02-28 | Outpatient (CLI) | payer MEDICARE, OTHER ==
[2019-02-28 10:36] LABS: PROTHROMBIN TIME 17.3 SEC (11.4-15.4)
== END ==
LOC: OD 09:48
PROVIDERS: ATTEND Internal Medicine
DX: I48.0 Paroxysmal atrial fibrillation (principal); Z79.01 Long term (current) use of anticoagulants
CPT/HCPCS: 36415; 85610

== ENCOUNTER → 2019-03-07 | Outpatient (CLI) | payer MEDICARE, OTHER ==
[2019-03-07 12:24] LABS: INTERNATIONAL RATION (INR) 2.75; PROTHROMBIN TIME 29.7 SEC (11.4-15.4)
== END ==
LOC: OD 11:22
PROVIDERS: ATTEND Internal Medicine
DX: I48.0 Paroxysmal atrial fibrillation (principal); Z79.01 Long term (current) use of anticoagulants
CPT/HCPCS: 36415; 85610

== ENCOUNTER → 2019-04-05 | Outpatient (CLI) | payer MEDICARE, OTHER ==
[2019-04-05 11:07] LABS: INTERNATIONAL RATION (INR) 1.85; PROTHROMBIN TIME 21.6 SEC (11.4-15.4)
== END ==
LOC: OD 10:26
PROVIDERS: ATTEND Internal Medicine
DX: I48.0 Paroxysmal atrial fibrillation (principal); Z79.01 Long term (current) use of anticoagulants
CPT/HCPCS: 36415; 85610

== ENCOUNTER → 2019-04-13 | Outpatient (CLI) | payer MEDICARE, OTHER ==
--- NOTE | 2019-04-13 16:21 | RADIOLOGY REPORT (SQ) ---
EXAM DESCRIPTION: CHEST PA/LATERAL COMPLETED DATE/TIME: 04/13/2019 3:57 pm REASON FOR STUDY: ELEVATED WHITE BLOOD CELL COUNT, UNSPECIFIED COMPARISON: 06/02/2016 EXAM PARAMETERS: NUMBER OF VIEWS: two views TECHNIQUE: Digital Frontal and Lateral radiographic views of the chest acquired. RADIATION DOSE: NA LIMITATIONS: none FINDINGS: LUNGS AND PLEURA: No opacities, masses or pneumothorax. No pleural effusion. MEDIASTINUM AND HILAR STRUCTURES: No masses or contour abnormalities. HEART AND VASCULAR STRUCTURES: Heart normal size. No evidence for failure. BONES: No acute findings. HARDWARE: None in the chest. OTHER: No other significant finding. IMPRESSION: NO SIGNIFICANT RADIOGRAPHIC FINDING IN THE CHEST. TECHNICAL DOCUMENTATION: JOB ID: [id number] [employer]- All Rights Reserved Reading location - IP/workstation name: [email or web address]
[2019-04-13 16:49] LABS: APPEARANCE,URINE CLEAR; BILIRUBIN,URINE NEGATIVE (NEGATIVE); COLOR,URINE YELLOW; GLUCOSE, URINE NEGATIVE (NEGATIVE); KETONES,URINE NEGATIVE (NEGATIVE); LEUKOCYTE ESTERASE,URINE NEGATIVE (NEGATIVE); NITRITE,URINE NEGATIVE (NEGATIVE); PROTEIN,URINE NEGATIVE (NEGATIVE); URINE SPECIFIC GRAVITY 1.015
== END ==
LOC: OD 15:40
PROVIDERS: ATTEND Internal Medicine
DX: D72.829 Elevated white blood cell count, unspecified (principal); D64.9 Anemia, unspecified; Z79.899 Other long term (current) drug therapy
CPT/HCPCS: 71046; 81001; 87086

== ENCOUNTER 2019-05-01 08:33 | Emergency (ER) | payer MEDICARE, OTHER ==
[2019-05-01 08:40] VITALS: BP 125/61
--- NOTE | 2019-05-01 09:09 | ER Document Report ---
ED Medical Screen (RME) - General Chief Complaint: Swallowed Foreign Body Stated Complaint: SWALLOWED FOREIGN BODY Time Seen by Provider: 05/01/19 09:02 Primary Care Provider: JUANY MILLER MD [Primary Care Provider] - Follow up as needed Notes: Patient is a very pleasant 84-year-old male who presents to the emergency department for possibly swallowing the pill packet of his Prevacid. Patient states that this happened around 8:00 this morning. Last time he ate or drink was at this time. Patient is currently on Coumadin. Patient states that he feels "queasy,"but states, "this may be psychological." Exam: Soft, nontender abdomen. I have greeted and performed a rapid initial assessment of this patient. A comprehensive ED assessment and evaluation of the patient, analysis of test results and completion of medical decision making process will be conducted by an additional ED providers. TRAVEL OUTSIDE OF THE [place] IN LAST 30 DAYS: No - Related Data Allergies/Adverse Reactions: alfuzosin [Alfuzosin] Allergy (Unknown, Verified 04/12/19 10:48) oxycodone [From Percocet] Allergy (Verified 05/01/19 08:46) procaine HCl [From Novocain] Adverse Reaction (Mild, Verified 04/12/19 10:48) Past Medical History - Social History Chew tobacco use (# tins/day): No Frequency of alcohol use: None Drug Abuse: None Family history: Reviewed & Not Pertinent - Past Medical History Cardiac Medical History: Reports: Hx Atrial Fibrillation, Hx Coronary Artery Disease, Hx Hypercholesterolemia, Hx Hypertension Denies: Hx Heart Attack, Hx Heart Murmur Pulmonary Medical History: Denies: Hx Asthma, Hx COPD, Hx Tuberculosis Neurological Medical History: Denies: Hx Cerebrovascular Accident, Hx Seizures Endocrine Medical History: Reports: Hx Diabetes Mellitus Type 2 - Diet and exercise controlled Renal/ Medical History: Reports: Hx Kidney Stones. Denies: Hx Peritoneal Dialysis GI Medical History: Reports: Hx Diverticulitis, Hx Gastroesophageal Reflux Disease, Hx Hiatal Hernia Musculoskeltal Medical History: Reports Hx Arthritis - all joints, Denies Hx Systemic Lupus Erythematosus Psychiatric Medical History: Denies: Hx Depression Traumatic Medical History: Reports: Hx Fractures - Arm Past Surgical History: Reports: Hx Appendectomy, Hx Bowel Surgery - peg tube removal, Hx Cardiac Catheterization, Hx Cardiac Surgery - 2 stents, Hx Cholecystectomy, Hx Coronary Stent - x2, Hx Orthopedic Surgery - right knee replacement - Immunizations Hx Diphtheria, Pertussis, Tetanus Vaccination: Yes Physical Exam - Vital signs Vitals: Temp Pulse Resp BP Pulse Ox 98.2 F 70 18 125/61 94 05/01/19 08:39 05/01/19 08:39 05/01/19 08:39 05/01/19 08:39 05/01/19 08:39 Course - Vital Signs Vital signs: Temp Pulse Resp BP Pulse Ox 98.2 F 70 18 125/61 94 05/01/19 08:39 05/01/19 08:39 05/01/19 08:39 05/01/19 08:39 05/01/19 08:39 Doctor's Discharge - Discharge Referrals: JUANY MILLER MD [Primary Care Provider] - Follow up as needed
--- NOTE | 2019-05-01 09:39 | RADIOLOGY REPORT (SQ) ---
EXAM DESCRIPTION: KUB/ABDOMEN (SINGLE VIEW) COMPLETED DATE/TIME: 05/01/2019 9:29 am REASON FOR STUDY: possibly swallowed foreign body (pill foil pack) COMPARISON: None. NUMBER OF VIEWS: One view. TECHNIQUE: Supine radiographic image of the abdomen acquired. LIMITATIONS: None. FINDINGS: BOWEL GAS PATTERN: Normal bowel gas pattern. No dilated loops. CALCIFICATIONS: No suspicious calcifications. SOFT TISSUES: No gross mass or suggestion of organomegaly. HARDWARE: None in the abdomen. Hardware in the left hip. BONES: No acute fracture. No worrisome bone lesions. OTHER: No other significant finding. IMPRESSION: NO RADIOGRAPHIC EVIDENCE FOR ACUTE ABDOMINAL DISEASE. NO RADIOPAQUE FOREIGN BODY. TECHNICAL DOCUMENTATION: JOB ID: [id number] [employer]- All Rights Reserved Reading location - IP/workstation name: [email or web address]
--- NOTE | 2019-05-01 09:40 | RADIOLOGY REPORT (SQ) ---
EXAM DESCRIPTION: CHEST 2 VIEWS COMPLETED DATE/TIME: 05/01/2019 9:29 am REASON FOR STUDY: possibly swallowed foreign body (pill foil pack) COMPARISON: 04/13/2019. EXAM PARAMETERS: NUMBER OF VIEWS: two views TECHNIQUE: Digital Frontal and Lateral radiographic views of the chest acquired. RADIATION DOSE: NA LIMITATIONS: none FINDINGS: LUNGS AND PLEURA: Chronic interstitial changes. No opacities, masses or pneumothorax. No pleural effusion. MEDIASTINUM AND HILAR STRUCTURES: No masses or contour abnormalities. HEART AND VASCULAR STRUCTURES: Heart normal size. No evidence for failure. BONES: No acute findings. Degenerative changes in the spine. HARDWARE: None in the chest. OTHER: No other significant finding. IMPRESSION: NO ACUTE RADIOGRAPHIC FINDING IN THE CHEST. NO RADIOPAQUE FOREIGN BODY. TECHNICAL DOCUMENTATION: JOB ID: [id number] [employer]- All Rights Reserved Reading location - IP/workstation name: [email or web address]
--- NOTE | 2019-05-01 10:07 | ER Document Report ---
HPI - HPI Time Seen by Provider: 05/01/19 09:02 Pain Level: Denies Context: Patient is a very pleasant 84-year-old male who presents to the emergency department for possibly swallowing the pill packet of his Prevacid. Patient states that this happened around 8:00 this morning. Last time he ate or drink was at this time. Patient is currently on Coumadin. Patient states that he feels "queasy,"but states, "this may be psychological." - ROS Systems Reviewed and Negative: Yes All other systems reviewed and negative - CONSTITUTIONAL Constitutional: DENIES: Fever, Chills - EENT EENT: DENIES: Sore Throat - CARDIOVASCULAR Cardiovascular: DENIES: Chest pain - GASTROINTESTINAL Gastrointestinal: REPORTS: Abdominal Pain. DENIES: Nausea, Patient vomiting, Diarrhea, Constipation, Black / Bloody Stools Notes: See HPI - REPRODUCTIVE Reproductive: DENIES: : - DERM Skin Color: Normal Skin Problems: None Past Medical History - Social History Smoking Status: Former Smoker Chew tobacco use (# tins/day): No Frequency of alcohol use: None Drug Abuse: None Family History: Reviewed & Not Pertinent, CAD, Hyperlipidemia, Hypertension Patient has suicidal ideation: No Patient has homicidal ideation: No - Past Medical History Cardiac Medical History: Reports: Hx Atrial Fibrillation, Hx Coronary Artery Disease, Hx Hypercholesterolemia, Hx Hypertension Denies: Hx Heart Attack, Hx Heart Murmur Pulmonary Medical History: Denies: Hx Asthma, Hx COPD, Hx Tuberculosis Neurological Medical History: Denies: Hx Cerebrovascular Accident, Hx Seizures Endocrine Medical History: Reports: Hx Diabetes Mellitus Type 2 - Diet and exercise controlled Renal/ Medical History: Reports: Hx Kidney Stones. Denies: Hx Peritoneal Dialysis GI Medical History: Reports: Hx Diverticulitis, Hx Gastroesophageal Reflux Disease, Hx Hiatal Hernia Musculoskeletal Medical History: Reports Hx Arthritis - all joints, Denies Hx Systemic Lupus Erythematosus Psychiatric Medical History: Denies: Hx Depression Traumatic Medical History: Reports: Hx Fractures - Arm Past Surgical History: Reports: Hx Appendectomy, Hx Bowel Surgery - peg tube removal, Hx Cardiac Catheterization, Hx Cardiac Surgery - 2 stents, Hx Cholecystectomy, Hx Coronary Stent - x2, Hx Orthopedic Surgery - right knee replacement - Immunizations Hx Diphtheria, Pertussis, Tetanus Vaccination: Yes Hx Pneumococcal Vaccination: 12/28/16 Vertical Provider Document - CONSTITUTIONAL Agree With Documented VS: Yes Exam Limitations: No Limitations General Appearance: No Apparent Distress - INFECTION CONTROL TRAVEL OUTSIDE OF THE [place] IN LAST 30 DAYS: No - HEENT HEENT: Atraumatic, Normocephalic, PERRLA - NECK Neck: Normal Inspection - RESPIRATORY Respiratory: Breath Sounds Normal, No Respiratory Distress - CARDIOVASCULAR Cardiovascular: Regular Rate, Regular Rhythm Pulses: Normal: Radial - GI/ABDOMEN Gastrointestinal: Abdomen Soft, Abdomen Non-Tender - MUSCULOSKELETAL/EXTREMETIES Musculoskeletal/Extremeties: FROM - NEURO Level of Consciousness: Awake, Alert, Appropriate - DERM Integumentary: Warm, Dry, No Rash Course - Re-evaluation Re-evalutation: 05/01/19 10:00 There is no foreign body noted on the patient's x-rays. I relayed this information on to the patient. He will follow-up with his primary care provider as needed. Follow-up precautions were given. Verbal discharge instructions were given to the patient. They verbalized understanding. They are stable for discharge. - Vital Signs Vital signs: Temp Pulse Resp BP Pulse Ox 98.2 F 70 18 125/61 94 05/01/19 08:39 05/01/19 08:39 05/01/19 08:39 05/01/19 08:39 05/01/19 08:39 Discharge - Discharge Clinical Impression: Swallowed foreign body Qualifiers: Encounter type: initial encounter Qualified Code(s): T18.9XXA - Foreign body of alimentary tract, part unspecified, initial encounter Condition: Stable Disposition: HOME, SELF-CARE Additional Instructions: You were seen today in the emergency department for possibly swallowing a pill packet, but your x-ray was normal and no pill packet was noted. Have a wonderful day. Referrals: JUANY MILLER MD [Primary Care Provider] - Follow up as needed
== END 2019-05-01 10:17 | disposition home or self-care (01) ==
LOC: ER 08:33
DX: T18.9XXA Foreign body of alimentary tract, part unspecified, initial encounter (principal); R10.9 Unspecified abdominal pain; X58.XXXA Exposure to other specified factors, initial encounter; I48.91 Unspecified atrial fibrillation; I10 Essential (primary) hypertension; E78.00 Pure hypercholesterolemia, unspecified; E11.9 Type 2 diabetes mellitus without complications; Z79.01 Long term (current) use of anticoagulants; Z87.442 Personal history of urinary calculi; Z90.49 Acquired absence of other specified parts of digestive tract
CPT/HCPCS: 71046; 74018; 99283

== ENCOUNTER → 2019-05-02 | Outpatient (CLI) | payer MEDICARE, OTHER ==
[2019-05-02 11:45] LABS: INTERNATIONAL RATION (INR) 2.75; PROTHROMBIN TIME 29.7 SEC (11.4-15.4)
== END ==
LOC: OD 10:28
PROVIDERS: ATTEND Internal Medicine
DX: I48.0 Paroxysmal atrial fibrillation (principal); Z79.01 Long term (current) use of anticoagulants
CPT/HCPCS: 36415; 85610

== ENCOUNTER → 2019-05-30 | Outpatient (CLI) | payer MEDICARE, OTHER ==
[2019-05-30 14:17] LABS: INTERNATIONAL RATION (INR) 1.99; PROTHROMBIN TIME 22.9 SEC (11.4-15.4)
== END ==
LOC: OD 13:23
PROVIDERS: ATTEND Internal Medicine
DX: I48.0 Paroxysmal atrial fibrillation (principal); Z79.01 Long term (current) use of anticoagulants
CPT/HCPCS: 36415; 85610

== ENCOUNTER → 2019-10-13 | Outpatient (CLI) | payer MEDICARE, OTHER ==
--- NOTE | 2019-10-13 12:42 | RADIOLOGY REPORT (SQ) ---
EXAM DESCRIPTION: CT CHEST WITH IMAGES COMPLETED DATE/TIME: 10/13/2019 9:48 am REASON FOR STUDY: LEUKEMIA C91.10 CHRONIC LYMPHOCYTIC LEUK OF B-CELL TYPE NOT ACHIEVE R COMPARISON: 11/15/2018 TECHNIQUE: CT scan of the chest performed using helical scanning technique with dynamic intravenous contrast injection. Images reviewed with lung, soft tissue and bone windows. Reconstructed coronal and sagittal MPR and MIP images reviewed. All images stored on PACS. All CT scanners at this facility use dose modulation, iterative reconstruction, and/or weight based d osing when appropriate to reduce radiation dose to as low as reasonably achievable (ALARA). [facility]: Dose Right [facility]: CareDose [facility]: Dose Right [facility]: Teradose 4D [facility]: TurboTranslations CONTRAST TYPE AND DOSE: 88 mL Omnipaque 350- low osmolar. RENAL FUNCTION: Creatinine 0.9 RADIATION DOSE: CT Rad equipment meets quality standard of care and radiation dose reduction techniq ues were employed. CTDIvol: 6.3 - 7.4 mGy. DLP: 1063 mGy-cm. . LIMITATIONS: None. FINDINGS: LUNGS AND PLEURA: Mild pulmonary fibrosis in the medial aspect of the right base. [employer] mbing is present. No pulmonary nodules. No pleural effusion. No acute infiltrates. HILAR AND MEDIASTINAL STRUCTURES: There is several mediastinal nodes that are slightly larger than on the prior study. For example, 1 image 20 to the prior study there 2 precarinal nodes. The more ant erior of the 2 measures 7.5 mm on the prior study. On the current study on image 26 series 2 this no de measures 12.6 mm. HEART AND VASCULAR STRUCTURES: No aneurysm or dissection. No central pulmonary emboli. Coronary art shira calcifications are present. No pericardial effusion. HARDWARE: None in the chest. UPPER ABDOMEN: See separate report of the CT of the abdomen. THYROID AND OTHER SOFT TISSUES: No masses. No adenopathy. BONES: No significant finding. OTHER: There are some small axillary nodes that are slightly larger than on the prior study. Compare image 15 series 2 from the prior study with image 19 series 2 on the current study. Another example is seen on image 19 in the prior study with a rounded node in the right axilla that measures 5.8 mm. This node now measures 9.3 mm on the current study on image 22. IMPRESSION: 1. There are some small mediastinal and axillary nodes that are larger than on the prio r study. 2. Mild pulmonary fibrosis in the right lower lobe. TECHNICAL DOCUMENTATION: JOB ID: [id number] Quality ID # [id number]: Final reports with documentation of one or more dose reduction techniques (e.g., Au tomated exposure control, adjustment of the mA and/or kV according to patient size, use of iterative reconstruction technique) 2010 [employer]- All Rights Reserved Reading location - IP/workstation name: [email or web address]
--- NOTE | 2019-10-13 13:06 | RADIOLOGY REPORT (SQ) ---
EXAM DESCRIPTION: CT ABD/PELVIS WITH IV ONLY IMAGES COMPLETED DATE/TIME: 10/13/2019 9:49 am REASON FOR STUDY: LEUKEMIA C91.10 CHRONIC LYMPHOCYTIC LEUK OF B-CELL TYPE NOT ACHIEVE R COMPARISON: 11/15/2018 TECHNIQUE: CT scan of the abdomen and pelvis performed using helical scanning technique with dynamic intravenous contrast injection. No oral contrast. Images reviewed with lung, soft tissue, and bone windows. Reconstructed coronal and sagittal MPR images reviewed. Delayed images for evaluation of the urinary system also acquired. All images stored on PACS. All CT scanners at this facility use dose modulation, iterative reconstruction, and/or weight based d osing when appropriate to reduce radiation dose to as low as reasonably achievable (ALARA). [facility]: Dose Right [facility]: CareDose [facility]: Dose Right [facility]: Teradose 4D [facility]: [employer] CONTRAST TYPE AND DOSE: contrast/concentration: Isovue 350.00 mmol/ml; Total Contrast Delivered: 88. 0 ml; Total Saline Delivered: 70.0 ml RENAL FUNCTION: Creatinine 0.9 RADIATION DOSE: . LIMITATIONS: None. FINDINGS: LOWER CHEST: See separate report of the CT of the chest. LIVER: Normal size. No masses. No dilated ducts. SPLEEN: Normal size. No focal lesions. PANCREAS: No masses. No significant calcifications. No adjacent inflammation or peripancreatic fluid collections. Pancreatic duct not dilated. GALLBLADDER: Surgically absent. ADRENAL GLANDS: No significant masses or asymmetry. RIGHT KIDNEY AND URETER: No solid masses. No significant calcifications. No hydronephrosis or hyd roureter. LEFT KIDNEY AND URETER: No solid masses. No significant calcifications. No hydronephrosis or hydr oureter. AORTA AND VESSELS: No aneurysm. No dissection. Renal arteries, SMA, celiac without stenosis. RETROPERITONEUM: There are several periaortic nodes. This represents a change. Compare image 34 ser ies 8 on the current study 2 image 34 series 3 on the prior study. BOWEL AND PERITONEAL CAVITY: No bowel masses. Sigmoid diverticulosis with no acute inflammation. Th ere is significant increase in mesenteric adenopathy. APPENDIX: Surgically absent. PELVIS: No mass. No free fluid. Normal bladder. ABDOMINAL WALL: No masses. No hernias. BONES: No significant or acute findings. OTHER: No other significant finding. IMPRESSION: 1. There is significant increase in abdominal adenopathy, particularly in the mesenteri c nodes. 2. Diverticulosis coli. TECHNICAL DOCUMENTATION: JOB ID: [id number] Quality ID # [id number]: Final reports with documentation of one or more dose reduction techniques (e.g., Au tomated exposure control, adjustment of the mA and/or kV according to patient size, use of iterative reconstruction technique) 2010 [employer]- All Rights Reserved Reading location - IP/workstation name: [email or web address]
== END ==
LOC: RAD 08:47
PROVIDERS: ATTEND Internal Medicine
DX: C91.10 Chronic lymphocytic leukemia of B-cell type not having achieved remission (principal); K57.30 Diverticulosis of large intestine without perforation or abscess without bleeding; J84.10 Pulmonary fibrosis, unspecified
CPT/HCPCS: 71260; 74177; 82565

== ENCOUNTER → 2019-11-22 | Outpatient (CLI) | payer MEDICARE, OTHER ==
--- NOTE | 2019-11-23 12:34 | RADIOLOGY REPORT (SQ) ---
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 TECHNIQUE: Blood glucose level was verified. Above dose of FDG was injected intravenously. 2-D seg mented attenuation correction images were obtained from the base of the skull to the midthighs. Nonc ontrast CT images were obtained for attenuation correction and fusion with emission images. CT image s were performed without oral or intravenous contrast and are not sensitive for parenchymal lesions. A series of overlapping emission PET images were obtained. Images reviewed and manipulated at [facility] work station by the radiologist. Images stored on PACS. LIMITATIONS: None. FINDINGS: HEAD AND NECK: No areas of abnormal metabolic activity in the soft tissues of the head and neck. CHEST: No areas of abnormal metabolic activity in the chest. ABDOMEN AND PELVIS: No areas of abnormal metabolic activity in the abdomen or pelvis. Expected physi ologic activity is present in the genitourinary system and bowel. PROXIMAL LOWER EXTREMITIES: No areas of abnormal metabolic activity in the soft tissues of the lower extremities. BONES: No abnormal metabolic activity in the visualized skeleton. Uptake previously described in the right mid femur has resolved. ADDITIONAL CT FINDINGS: Persistent mediastinal and mesenteric adenopathy. OTHER: Focal uptake in a small bowel lobe is noted best demonstrated on image 106 most likely physiol ogic. IMPRESSION: Persistent adenopathy. No abnormal metabolic activity. TECHNICAL DOCUMENTATION: JOB ID: [id number] 2010 [employer]- All Rights Reserved Reading location - IP/workstation name: [email or web address]
== END ==
LOC: RAD 11:48
PROVIDERS: ATTEND Physician Assistant Medical
DX: C91.10 Chronic lymphocytic leukemia of B-cell type not having achieved remission (principal)
CPT/HCPCS: 78815; A9552

== ENCOUNTER → 2019-12-08 | Outpatient (CLI) | payer MEDICARE, OTHER ==
[2019-12-08 11:00] LABS: HEMATOCRIT 34.5 % (37.9-51.0); HEMOGLOBIN 11.7 g/dL (13.5-17.0); MEAN CORPUSCULAR HEMOGLOBIN 35.4 pg (27.0-33.4); MEAN CORPUSCULAR HGB CONC 33.8 g/dL (32.0-36.0); MEAN CORPUSCULAR VOLUME 105 fl (80-97); RED CELL DISTRIBUTION WIDTH 16.4 % (11.5-14.0)
[2019-12-08 11:32] LABS: ALKALINE PHOSPHATASE 119 U/L (38-126); ANION GAP 7 (5-19); ASPARTATE AMINO TRANSFERASE 23 U/L (17-59); BILIRUBIN,DIRECT 0.5 mg/dL (0.0-0.4); BLOOD UREA NITROGEN 18 mg/dL (7-20); CALCIUM 9.4 mg/dL (8.4-10.2); CARBON DIOXIDE 28 mmol/L (22-30); CHLORIDE 103 mmol/L (98-107); CHOLESTEROL 139.34 mg/dL (0-200); GLUCOSE 130 mg/dL (75-110); POTASSIUM 5.4 mmol/L (3.6-5.0); TOTAL PROTEIN 6.5 g/dL (6.3-8.2); TRIGLYCERIDES 130 mg/dL (<150)
[2019-12-08 11:43] LABS: DIRECT LDL 80 mg/dL (<100)
[2019-12-08 11:47] LABS: ABSOLUTE MONOCYTES # (MANUAL) 0.4 10^3/uL (0.1-1.4); BASOPHILS % (MANUAL) 0 % (0-2); EOSINOPHILS % (MANUAL) 0 % (0-6); MONOCYTES % (MANUAL) 1 % (3-13); SEGMENTED NEUTROPHILS % (MAN) 3 % (42-78); TOTAL CELLS COUNTED 100
[2019-12-08 11:48] LABS: ANISOCYTOSIS 1+; PLATELET CLUMPS PRESENT; PLATELET COMMENT ADEQUATE; SMUDGE CELLS PRESENT
[2019-12-08 11:49] LABS: OVALOCYTES 1+; POIKILOCYTOSIS 1+
[2019-12-08 11:59] LABS: IMMATURE MONONUCLEAR% (MANUAL) 9 % (0); LYMPHOCYTES % (MANUAL) 86 % (13-45)
[2019-12-08 12:02] LABS: PLATELET COUNT 252 10^3/uL (150-450)
[2019-12-08 13:39] LABS: WHITE BLOOD COUNT 40.2 10^3/uL (4.0-10.5)
[2019-12-08 16:25] LABS: UR PRO/CREAT RATIO RESULT 0.2 mg/mg (0.0-0.2); URINE CREATININE 237.4 mg/dL (22-328); URINE PROTEIN 46.4 mg/dL (<12)
== END ==
LOC: OD 09:30
PROVIDERS: ATTEND Internal Medicine
DX: E11.9 Type 2 diabetes mellitus without complications (principal); I10 Essential (primary) hypertension; E78.5 Hyperlipidemia, unspecified; R53.83 Other fatigue
CPT/HCPCS: 36415; 80053; 80061; 82043; 82570; 83036; 84156; 84443; 85025

== ENCOUNTER 2020-02-05 17:35 | Emergency (ER) | payer MEDICARE, OTHER ==
--- NOTE | 2020-02-05 18:10 | EKG REPORT ---
SEVERITY:- ABNORMAL ECG - SINUS RHYTHM RBBB AND LAFB : Confirmed by: Ashkan Desai MD 05-Feb-2020 18:09:10
--- NOTE | 2020-02-05 19:49 | RADIOLOGY REPORT (SQ) ---
EXAM DESCRIPTION: CHEST SINGLE VIEW IMAGES COMPLETED DATE/TIME: 02/05/2020 7:40 pm REASON FOR STUDY: htn COMPARISON: Chest x-ray 05/01/2019, 04/13/2019. EXAM PARAMETERS: NUMBER OF VIEWS: One view. TECHNIQUE: Single frontal radiographic view of the chest acquired. RADIATION DOSE: NA LIMITATIONS: None. FINDINGS: LUNGS AND PLEURA: No consolidation, pneumothorax or pleural effusion. MEDIASTINUM AND HILAR STRUCTURES: Stable appearance. HEART AND VASCULAR STRUCTURES: Heart upper normal limit in size. No overt vascular congestion. BONES: Multilevel degenerative changes at the spine. HARDWARE: None in the chest. IMPRESSION: No acute radiographic finding in the chest. TECHNICAL DOCUMENTATION: JOB ID: [id number] 2010 [employer]- All Rights Reserved Reading location - IP/workstation name: [email or web address]
[2020-02-05 19:53] LABS: HEMATOCRIT 27.5 % (37.9-51.0); HEMOGLOBIN 9.3 g/dL (13.5-17.0); MEAN CORPUSCULAR HGB CONC 33.9 g/dL (32.0-36.0); MEAN CORPUSCULAR VOLUME 106 fl (80-97); PLATELET COUNT 269 10^3/uL (150-450); RED BLOOD COUNT 2.59 10^6/uL (4.35-5.55); RED CELL DISTRIBUTION WIDTH 17.2 % (11.5-14.0)
[2020-02-05 20:02] LABS: ALBUMIN 3.4 g/dL (3.5-5.0); ALKALINE PHOSPHATASE 109 U/L (38-126); ANION GAP 8 (5-19); ASPARTATE AMINO TRANSFERASE 23 U/L (17-59); BILIRUBIN,DIRECT 0.2 mg/dL (0.0-0.4); BILIRUBIN,TOTAL 0.5 mg/dL (0.2-1.3); BLOOD UREA NITROGEN 23 mg/dL (7-20); CALCIUM 9.1 mg/dL (8.4-10.2); CARBON DIOXIDE 25 mmol/L (22-30); CHLORIDE 100 mmol/L (98-107); CREATINE KINASE < 20 U/L (55-170); GLUCOSE 119 mg/dL (75-110); POTASSIUM 4.6 mmol/L (3.6-5.0); TOTAL PROTEIN 5.7 g/dL (6.3-8.2)
--- NOTE | 2020-02-05 20:11 | ER Document Report ---
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 Earlier today the patient could feel himself in atrial fibrillation and for the brief period that he was in a. fib he had bilateral jaw pain/pressure. Daughter at bedside reports that she was called to the house and when she got there he had an elevated heart rate, was in a. fib, and he was pale with a pressure of 117/58. Patient took two nitroglycerin prior to arrival and he now has a headache. Patient denies any COVID contacts or history of fevers. TRAVEL OUTSIDE OF THE [place] IN LAST 30 DAYS: No - Related Data Allergies/Adverse Reactions: alfuzosin [Alfuzosin] Allergy (Unknown, Verified 02/05/20 17:43) oxycodone [From Percocet] Allergy (Verified 02/05/20 17:43) procaine HCl [From Novocain] Adverse Reaction (Mild, Verified 02/05/20 17:43) Past Medical History - General Information source: Patient - Social History Smoking Status: Former Smoker Cigarette use (# per day): No Frequency of alcohol use: None Drug Abuse: None Lives with: Family Family History: Reviewed & Not Pertinent, CAD, Hyperlipidemia, Hypertension - Past Medical History Cardiac Medical History: Reports: Hx Atrial Fibrillation, Hx Coronary Artery Disease, Hx Hypercholesterolemia, Hx Hypertension Pulmonary Medical History: Endocrine Medical History: Reports: Hx Diabetes Mellitus Type 2 Renal/ Medical History: Reports: Hx Kidney Stones GI Medical History: Reports: Hx Diverticulitis, Hx Gastroesophageal Reflux Disease, Hx Hiatal Hernia Musculoskeletal Medical History: Reports Hx Arthritis - all joints Traumatic Medical History: Reports: Hx Fractures - Arm Past Surgical History: Reports: Hx Appendectomy, Hx Bowel Surgery, Hx Cardiac Catheterization, Hx Cardiac Surgery - 3 stents, Hx Cholecystectomy, Hx Coronary Stent - x2, Hx Orthopedic Surgery - right knee replacement - Immunizations Hx Diphtheria, Pertussis, Tetanus Vaccination: Yes Hx Pneumococcal Vaccination: 12/28/16 Review of Systems - Review of Systems Constitutional: See HPI, Weakness. denies: Fever EENT: No symptoms reported Cardiovascular: See HPI, Palpitations, Heart racing Respiratory: See HPI, Short of breath Gastrointestinal: No symptoms reported Genitourinary: No symptoms reported Male Genitourinary: No symptoms reported Musculoskeletal: No symptoms reported Skin: No symptoms reported Hematologic/Lymphatic: No symptoms reported Neurological/Psychological: See HPI, Headaches -: Yes All other systems reviewed and negative Physical Exam - Vital signs Vitals: Temp 98.1 F 02/05/20 18:00 - Notes Notes: Physical Exam: General: Alert, appears well. HEENT: Normocephalic. Atraumatic. PERRL. Extraocular movements intact. Oropharynx clear. Difficulty hearing at baseline. Neck: Supple. Non-tender. Respiratory: No respiratory distress. Clear and equal breath sounds bilaterally. Cardiovascular: Regular rate and rhythm. Abdominal: Normal Inspection. Non-tender. No distension. Normal Bowel Sounds. Back: No gross abnormalities. Extremities: Moves all four extremities. Upper extremities: Normal inspection. Normal ROM. Lower extremities: Normal inspection. No edema. Normal ROM. Neurological: Normal cognition. AAOx4. Normal speech. Psychological: Normal affect. Normal Mood. Skin: Warm. Dry. Normal color. 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 Flynn here and had episode of A fib earlier - he has a h/o this - and at that time experienced fullness in his throat. Took Asa and ntg with resolution of the discomfort. Watch over 5 hours here and trop negative times 2 here. 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 Discussed follow up and he and daughter expressed understanding. - Vital Signs Vital signs: Temp Pulse Resp BP Pulse Ox 98.1 F 20 124/62 96 02/05/20 18:00 02/05/20 23:01 02/05/20 23:01 02/05/20 23:01 - Laboratory Result Diagrams: 02/05/20 17:43 02/05/20 17:43 Laboratory results interpreted by me: 11/08/20 11/08/20 11/08/20 17:43 17:43 17:43 WBC 140.5 H* RBC 2.59 L Hgb 9.3 L Hct 27.5 L MCV 106 H MCH 36.0 H RDW 17.2 H Seg Neuts % (Manual) 2 L Lymphocytes % (Manual) 96 H Monocytes % (Manual) 2 L Abs Lymphs (Manual) 134.9 H Abs Monocytes (Manual) 2.8 H Sodium 133.4 L BUN 23 H Glucose 119 H Creatine Kinase < 20 L NT-Pro-B Natriuret Pep 780 H Total Protein 5.7 L Albumin 3.4 L - Diagnostic Test Radiology reviewed: Image reviewed, Reports reviewed - EKG Interpretation by Me EKG shows normal: Sinus rhythm Rate: Normal Rhythm: NSR [place]/QRS: Left axis deviation - NSR Left axis [address] elevation or depression my interpretation. Discharge - Discharge Clinical Impression: Leukocytosis Qualifiers: Leukocytosis type: lymphocytosis Qualified Code(s): D72.820 - Lymphocytosis (symptomatic) Atrial fibrillation Qualifiers: Atrial fibrillation type: unspecified Qualified Code(s): I48.91 - Unspecified atrial fibrillation Condition: Stable Disposition: HOME, SELF-CARE Instructions: Palpitations (Irregular or Rapid Heartrate) ([facility]), Atrial Fibrillation ([facility]), Leukocytosis ([facility]) Additional Instructions: Call Dr. Flynn in the morning. Take your medicines as directed. Call the yeast fermentation attendant office to discuss wearing a heart monitor also. Please return here for chest pain, shortness of breath or any other problems or other concerns. Referrals: AKIRA GARVEY MD [ACTIVE STAFF] - 02/06/20 I personally performed the services described in the documentation, reviewed and edited the documentation which was dictated to the scribe in my presence, and it accurately records my words and actions.
[2020-02-05 20:14] LABS: WHITE BLOOD COUNT 140.5 10^3/uL (4.0-10.5)
[2020-02-05 20:16] LABS: ABSOLUTE LYMPHOCYTES# (MANUAL) 134.9 10^3/uL (0.5-4.7); ABSOLUTE MONOCYTES # (MANUAL) 2.8 10^3/uL (0.1-1.4); BASOPHILS % (MANUAL) 0 % (0-2); EOSINOPHILS % (MANUAL) 0 % (0-6); LYMPHOCYTES % (MANUAL) 96 % (13-45); MONOCYTES % (MANUAL) 2 % (3-13); SEGMENTED NEUTROPHILS % (MAN) 2 % (42-78); TOTAL CELLS COUNTED 100
[2020-02-05 20:19] LABS: ANISOCYTOSIS 1+; BURR CELLS SLIGHT; OVALOCYTES 1+; POIKILOCYTOSIS 1+; SCHISTOCYTES SLIGHT; TEAR DROP CELLS SLIGHT; TOXIC GRANULATION SLIGHT
[2020-02-05 20:20] LABS: PLATELET COMMENT ADEQUATE
[2020-02-05 22:32] LABS: INTERNATIONAL RATION (INR) 1.13; PROTHROMBIN TIME 14.7 SEC (11.4-15.4)
[2020-02-05 23:17] VITALS: BP 124/62
== END 2020-02-05 23:34 | disposition home or self-care (01) ==
LOC: ER 17:35
DX: I48.91 Unspecified atrial fibrillation (principal); D72.820 Lymphocytosis (symptomatic); R00.2 Palpitations; R68.84 Jaw pain; R42 Dizziness and giddiness; R53.1 Weakness; Z88.8 Allergy status to other drugs, medicaments and biological substances; Z87.891 Personal history of nicotine dependence; I25.10 Atherosclerotic heart disease of native coronary artery without angina pectoris; E11.9 Type 2 diabetes mellitus without complications; Z79.82 Long term (current) use of aspirin
CPT/HCPCS: 36415; 71045; 80053; 82550; 83735; 83880; 84443; 84484; 85025; 85610; 93005; 93010; 99285